=== PATIENT | male | born 1960 | race Caucasian/White ===

== ENCOUNTER → 2019-03-11 10:40 | Outpatient (BNVA) | payer MEDICARE, SELFPAY | PROVIDERS: Family Provider Internal Medicine; PCP Internal Medicine; Referring Provider Internal Medicine; Visit Provider Podiatrist Foot & Ankle Surgery | DX: M79.671 Pain in right foot (principal); M79.672 Pain in left foot; M76.822 Posterior tibial tendinitis, left leg | CPT/HCPCS: 73630 ==

== ENCOUNTER 2019-03-11 13:28 | Outpatient (CLI) | payer MEDICARE, SELFPAY | END 2019-03-11 13:29 | disposition home or self-care (01) | LOC: SPT 13:29 | PROVIDERS: Family Provider Internal Medicine; PCP Internal Medicine; Visit Provider Podiatrist Foot & Ankle Surgery | DX: M76.822 Posterior tibial tendinitis, left leg (principal) | CPT/HCPCS: L1902 ==

== ENCOUNTER → 2019-03-25 13:19 | Outpatient (BNVA) | payer MEDICARE, SELFPAY | PROVIDERS: Family Provider Internal Medicine; PCP Internal Medicine; Visit Provider Internal Medicine Rheumatology | DX: L40.50 Arthropathic psoriasis, unspecified (principal); L40.8 Other psoriasis; Z79.899 Other long term (current) drug therapy; Z79.52 Long term (current) use of systemic steroids; K21.9 Gastro-esophageal reflux disease without esophagitis; F17.210 Nicotine dependence, cigarettes, uncomplicated; I10 Essential (primary) hypertension | CPT/HCPCS: 99214 ==

== ENCOUNTER 2019-07-10 15:33 | Outpatient (CLI) | payer MEDICARE, SELFPAY ==
--- NOTE | 2019-07-10 15:42 | XRR_ITS ---
PROCEDURE INFORMATION: Exam: XR Left Hand Exam date and time: 07/10/2019 3:57 PM Age: 58 years old Clinical indication: Condition or disease; Other: Psoriatic arthritis; Hand; Bilateral TECHNIQUE: Imaging protocol: XR Left hand. Views: 3 or more views. COMPARISON: CR Hand 3 views, LEFT* [id number] 10/22/2013 11:40 AM FINDINGS: Bones/joints: Chondrocalcinosis over the wrist joint proximal to the lunate. Soft tissues: Normal. XR/XR hand LT min 3V* [id number] IMPRESSION: Chondrocalcinosis over the wrist joint proximal to the lunate.
--- NOTE | 2019-07-10 15:42 | XRR_ITS ---
PROCEDURE INFORMATION: Exam: XR Right Knee Exam date and time: 07/10/2019 3:57 PM Age: 58 years old Clinical indication: Condition or disease; Other: Psoriatic arthritis; Bilateral TECHNIQUE: Imaging protocol: XR Right knee. Views: 3 views. COMPARISON: No relevant prior studies available. FINDINGS: Bones/joints: Chondrocalcinosis. Moderate to severe medial knee compartment primary osteoarthritis. Mild patellofemoral compartment primary osteoarthritis. There may be one or more intra-articular loose bodies. Soft tissues: Normal. XR/XR knee RT 3V* [id number] IMPRESSION: 1. Moderate to severe medial knee compartment primary osteoarthritis. 2. Mild patellofemoral compartment primary osteoarthritis. 3. There may be one or more intra-articular loose bodies.
--- NOTE | 2019-07-10 15:42 | XRR_ITS ---
PROCEDURE INFORMATION: Exam: XR Left Knee Exam date and time: 07/10/2019 3:57 PM Age: 58 years old Clinical indication: Condition or disease; Other: Psoriatic arthritis; Bilateral TECHNIQUE: Imaging protocol: XR Left knee. Views: 3 views. COMPARISON: No relevant prior studies available. FINDINGS: Bones/joints: Chondrocalcinosis. Mild primary tricompartmental osteoarthritis. There may be one or more intra-articular loose bodies. Soft tissues: Normal. XR/XR knee LT 3V* [id number] IMPRESSION: 1. Chondrocalcinosis. 2. Mild primary tricompartmental osteoarthritis. 3. There may be one or more intra-articular loose bodies.
--- NOTE | 2019-07-10 15:42 | XRR_ITS ---
PROCEDURE INFORMATION: Exam: XR Left Ankle Exam date and time: 07/10/2019 3:57 PM Age: 58 years old Clinical indication: Condition or disease; Other: Psoriatic arthritis; Bilateral TECHNIQUE: Imaging protocol: XR Left ankle. Views: 3 or more views. COMPARISON: CR Ankle 3 views, LEFT* [id number] 01/03/2019 5:17 PM FINDINGS: Bones/joints: Chronic healed avulsion fracture and/or ununited accessory ossification center and/or chronic posttraumatic arthritis over the inferior tip of the lateral malleolus. Soft tissues: Normal. XR/XR ankle LT min 3V* [id number] IMPRESSION: Chronic healed avulsion fracture and/or ununited accessory ossification center and/or chronic posttraumatic arthritis over the inferior tip of the lateral malleolus.
--- NOTE | 2019-07-10 15:42 | XRR_ITS ---
PROCEDURE INFORMATION: Exam: XR Chest, 2 Views Exam date and time: 07/10/2019 3:57 PM Age: 58 years old Clinical indication: Condition or disease; Other: Psoriatic arthritis TECHNIQUE: Imaging protocol: XR of the chest Views: 2 views. COMPARISON: CR Chest 1 [place] [id number] 01/09/2016 4:53 PM FINDINGS: Lungs: Unremarkable. No consolidation. Pleural space: Unremarkable. No pleural effusion. No pneumothorax. Heart/Mediastinum: Unremarkable. No cardiomegaly. Bones/joints: Moderate thoracic spondylosis. Mild levoscoliosis. XR/XR chest 2V* [id number] IMPRESSION: No acute findings.
--- NOTE | 2019-07-10 15:42 | XRR_ITS ---
PROCEDURE INFORMATION: Exam: XR Left Foot Complete Exam date and time: 07/10/2019 3:57 PM Age: 58 years old Clinical indication: Condition or disease; Other: Psoriatic arthritis; Bilateral TECHNIQUE: Imaging protocol: XR Left foot. Views: 3 or more views. COMPARISON: [place] [id number] ORTH 03/11/2019 10:20 AM FINDINGS: Bones/joints: Mild great toe MTP primary osteoarthritis with tiny osteophyte. Soft tissues: Normal. XR/XR foot LT min 3V* [id number] IMPRESSION: Mild great toe MTP primary osteoarthritis with tiny osteophyte.
--- NOTE | 2019-07-10 15:42 | XRR_ITS ---
PROCEDURE INFORMATION: Exam: XR Right Foot Complete Exam date and time: 07/10/2019 3:57 PM Age: 58 years old Clinical indication: Condition or disease; Other: Psoriatic arthritis; Bilateral TECHNIQUE: Imaging protocol: XR Right foot. Views: 3 or more views. COMPARISON: [place] [id number] ORTH 03/11/2019 10:20 AM FINDINGS: Bones/joints: Normal. Soft tissues: Normal. XR/XR foot RT min 3V* [id number] IMPRESSION: No acute findings.
--- NOTE | 2019-07-10 15:42 | XRR_ITS ---
PROCEDURE INFORMATION: Exam: XR Right Hand Exam date and time: 07/10/2019 3:57 PM Age: 58 years old Clinical indication: Condition or disease; Other: Psoriatic arthritis; Hand; Bilateral TECHNIQUE: Imaging protocol: XR Right hand. Views: 3 or more views. COMPARISON: CR Hand 3 views, RIGHT* [id number] 10/22/2013 11:40 AM FINDINGS: Bones/joints: Normal. Soft tissues: Normal. XR/XR hand RT min 3V* [id number] IMPRESSION: No acute findings.
== END 2019-07-10 15:34 | disposition home or self-care (01) ==
LOC: RADWPI 15:38
PROVIDERS: Family Provider Internal Medicine; PCP Internal Medicine; Visit Provider Internal Medicine Rheumatology
DX: L40.50 Arthropathic psoriasis, unspecified (principal); M11.262 Other chondrocalcinosis, left knee; M17.0 Bilateral primary osteoarthritis of knee; M11.242 Other chondrocalcinosis, left hand; M19.072 Primary osteoarthritis, left ankle and foot; M25.775 Osteophyte, left foot
CPT/HCPCS: 71046; 73130; 73562; 73610; 73630

== ENCOUNTER → 2019-08-20 13:52 | Outpatient (BNVA) | payer MEDICARE, SELFPAY | PROVIDERS: Family Provider Internal Medicine; PCP Internal Medicine; Visit Provider Internal Medicine Rheumatology | DX: L40.50 Arthropathic psoriasis, unspecified (principal); M05.9 Rheumatoid arthritis with rheumatoid factor, unspecified; L40.8 Other psoriasis; Z79.899 Other long term (current) drug therapy; F17.210 Nicotine dependence, cigarettes, uncomplicated; Z79.52 Long term (current) use of systemic steroids; M47.892 Other spondylosis, cervical region; M47.26 Other spondylosis with radiculopathy, lumbar region | CPT/HCPCS: 99214 ==

== ENCOUNTER → 2019-12-25 14:43 | Outpatient (BNVA) | payer MEDICARE, SELFPAY | PROVIDERS: Family Provider Internal Medicine; PCP Internal Medicine; Visit Provider Internal Medicine Rheumatology | DX: L40.50 Arthropathic psoriasis, unspecified (principal); Z79.52 Long term (current) use of systemic steroids; L40.9 Psoriasis, unspecified; K21.9 Gastro-esophageal reflux disease without esophagitis; M05.9 Rheumatoid arthritis with rheumatoid factor, unspecified; M47.26 Other spondylosis with radiculopathy, lumbar region; M47.812 Spondylosis without myelopathy or radiculopathy, cervical region; M77.01 Medial epicondylitis, right elbow; M77.02 Medial epicondylitis, left elbow; M77.11 Lateral epicondylitis, right elbow; M77.12 Lateral epicondylitis, left elbow; F17.210 Nicotine dependence, cigarettes, uncomplicated; Z79.899 Other long term (current) drug therapy | CPT/HCPCS: 36415; 80076; 82565; 84439; 84443; 85025; 85651; 86140; 99214 ==

== ENCOUNTER → 2020-05-11 09:55 | Outpatient (BNVA) | payer OTHER, SELFPAY | PROVIDERS: Family Provider Internal Medicine; PCP Internal Medicine; Visit Provider Internal Medicine Rheumatology | DX: L40.50 Arthropathic psoriasis, unspecified (principal); Z79.899 Other long term (current) drug therapy; Z79.52 Long term (current) use of systemic steroids; M11.29 Other chondrocalcinosis, multiple sites; M47.26 Other spondylosis with radiculopathy, lumbar region; K22.70 Barrett's esophagus without dysplasia; R06.2 Wheezing; F17.210 Nicotine dependence, cigarettes, uncomplicated | CPT/HCPCS: 99214 ==

== ENCOUNTER → 2020-09-29 13:27 | Outpatient (BNVA) | payer OTHER, SELFPAY | PROVIDERS: Family Provider Internal Medicine; PCP Internal Medicine; Visit Provider Internal Medicine Rheumatology | DX: L40.50 Arthropathic psoriasis, unspecified (principal); Z79.899 Other long term (current) drug therapy; Z79.52 Long term (current) use of systemic steroids; K21.9 Gastro-esophageal reflux disease without esophagitis; K22.70 Barrett's esophagus without dysplasia; M47.892 Other spondylosis, cervical region; M47.26 Other spondylosis with radiculopathy, lumbar region; Z71.89 Other specified counseling; F17.210 Nicotine dependence, cigarettes, uncomplicated | CPT/HCPCS: 99214 ==

== ENCOUNTER → 2020-10-14 15:15 | Outpatient (BNVA) | payer OTHER, SELFPAY | PROVIDERS: Family Provider Internal Medicine; PCP Internal Medicine; Referring Provider Internal Medicine; Visit Provider Podiatrist Foot & Ankle Surgery | DX: M25.572 Pain in left ankle and joints of left foot (principal) | CPT/HCPCS: 73610 ==

== ENCOUNTER 2020-11-14 14:38 | Emergency (ER) | payer MEDICARE, SELFPAY ==
[2020-11-14 14:55] VITALS: BP 141/91; PULSE 83; RESP 18; TEMP 37.3; O2SAT 90; BMI 35.5
[2020-11-14 15:09] VITALS: BP 141/91; PULSE 107; RESP 21; O2SAT 92
[2020-11-14 15:33] VITALS: O2SAT 93
--- NOTE | 2020-11-14 16:01 | XRR_ITS ---
PROCEDURE INFORMATION: Exam: XR Chest Exam date and time: 11/14/2020 4:01 PM Age: 60 years old Clinical indication: Shortness of breath; Additional info: Covid? TECHNIQUE: Imaging protocol: XR of the chest. Views: 1 view. Total images: 1 COMPARISON: CR XR chest 2V* [id number] 07/10/2019 4:08 PM FINDINGS: Lungs: No visible active interstitial or alveolar airspace disease. Pleural spaces: Unremarkable. No pleural effusion. No pneumothorax. Heart/Mediastinum: Cardiac structures and configuration within normal limits for age. Bones/joints: Mild scoliotic curvature of the spine. Soft tissues: Heavy body habitus. XR/XR chest 1V portable [id number] IMPRESSION: Nonacute.
[2020-11-14] MEDS: acetaminophen 500 mg Tablet PO (16:08)
[2020-11-14] MEDS: dexamethasone 10 mg/mL INJ 6 MG IVP (16:09)
[2020-11-14] MEDS: sodium chloride 0.9% 500 ML IV (16:10)
[2020-11-14 16:13] VITALS: BP 122/83; PULSE 79; RESP 20; O2SAT 90
[2020-11-14 16:19] LABS: Basophils # 0.1 10^3/uL (0.0-0.1); Basophils % 0.7 %; Eosinophils # 0.3 10^3/uL (0.0-0.8); Eosinophils % 3.6 %; Hematocrit 37.5 % (42.0-52.0); Hemoglobin 11.8 g/dL (11.7-16.6); Lymphocytes # 1.2 10^3/uL (0.8-4.8); Mean Corpuscular HGB Conc 31.5 g/dL (30.0-36.0); Mean Corpuscular Hemoglobin 29.7 pg (28.0-34.0); Mean Corpuscular Volume 94.5 fl (80-94); Mean Platelet Volume 9.9 fL (7.4-10.4); Monocytes # 0.7 10^3/uL (0.2-0.9); Neutrophils # 4.93 10^3/uL (1.8-7.7); Neutrophils % 68.6 %; Nucleated Red Blood Cells % 0 %; Platelet Count 345 10^3/cmm (130-400); Red Blood Count 3.97 10^6/uL (4.1-5.3); Red Cell Distribution Width 14.6 % (12.1-15.1); White Blood Count 7.2 10^3/uL (4.0-10.0)
[2020-11-14 16:30] LABS: Anion Gap 17.8 (5-19); Blood Urea Nitrogen 10 mg/dL (8-23); Calcium 9.3 mg/dL (8.5-10.5); Carbon Dioxide 24 mmol/L (22-29); Chloride 101 mmol/L (98-107); Glomerular Filtration Rate 114.3 mL/min (90-130); Glucose 99 mg/dL (65-115); Osmolality Calculated 287 mOsm/kg (285-295); Potassium 3.8 mmol/L (3.5-5.1); Sodium 139 mmol/L (136-145)
[2020-11-14 16:49] LABS: SARS Covid-2 Antigen Negative (Negative)
--- NOTE | 2020-11-14 17:08 | W.ED.GENADLT ---
HPI - General Adult General: Chief complaint: COVID symptoms Stated complaint: O2 at 82, sent by Clinic Time Seen by Provider: 11/14/20 15:02 History of Present Illness: HPI narrative: CC: Shortness of breath, fever and generalized weakness HPI: This is a [60]yo patient w/ hx of back pain presenting to the ED with malaise, generalized weakness, cough sputum production, anddyspnea r at home x [2]days. Since onset of symptoms, has had some shortness of breath and decreased PO intake. Patient's has been home sick with covid x 2 weeks. Denies nausea/vomiting/diarrhea. Denies chest pain, diaphoresis, other GI or complaints. Denies any pleuritic chest pain, recent surgery/immobilization/travel, or hematemesis or hx of VTE in the past. Onset: 2 days ago Duration: ongoing for the last 2 days Location: home Severity: moderate Review of Systems Narrative: Constitutional: +subjective fever, +generalized weakness HEENT: No vision changes CV: No chest pain, no palpitations PULM: +cough, +dyspnea. GI: No abdominal pain, no N/V/D. : No dysuria MSKEL: No muscle pain SKIN: No new rashes, no lesions. NEURO: No headache, no focal weakness. HEME: No visible bruises PSYCH: Normal mood PFSH ED PFSH: Medical History (Updated 11/14/20 @ 17:12 by Balaji Hayden MD) Cervical spondylosis Current chronic use of systemic steroids Dyspnea Fibromyalgia GERD (gastroesophageal reflux disease) High risk medication use Immunization counseling Immunosuppression Lumbosacral spondylosis with radiculopathy Posterior tibial tendon dysfunction, bilateral Psoriasis Psoriatic arthritis Surgical History History of appendectomy History of ear, nose, and throat (ENT) surgery History of repair of anterior cruciate ligament of right knee Hx of hemorrhoidectomy Family History Denies family history of Diabetes Cancer Stroke Social History Smoking and tobacco status: never smoked Alcohol intake: never Lives independently: No Household members: spouse Marital status: Current occupational status: disabled History of recent travel: No Physical Exam Narrative: EXAM NARRATIVE: Head: Atraumatic Eyes: PERRL, conjunctiva without injection ENT: Mucous membrane moist NECK: Supple without lymphadenopathy LUNGS: Coarse lung sounds, tachypnea, no crackles/wheezes/rhonchi on exam CV: RRR ABDOMEN: Soft, nontender EXTREMITY: Normal ROM SKIN: No rash or erythema NEURO: Awake and alert. No focal motor deficits. PSYCH: Normal mood and affect. Course Vital Signs: Vital signs: Vital Signs Temperature 99.1 F 11/14/20 14:55 Pulse Rate 86 11/14/20 19:53 Respiratory Rate 18 11/14/20 19:53 Blood Pressure 122/83 11/14/20 16:13 Pulse Oximetry 94 11/14/20 19:53 MDM - General Adult MDM Narrative: Medical decision making narrative: [60]yo patient presenting to the ED with shortness of breath, cough, and malaise in the setting of family member with covid concerning for COVID pneumonia. Workup today includes XR chest Defer lab work at this time given that the patient is well appearing with stable vital signs and without recent hospitalization or care facility stay. Given History, Exam, and Workup presentation most consistent with pneumonia.Presentation not consistent with PE, COPD exacerbation, Pneumothorax, TB, Atypical ACS, Esophageal Rupture, Toxic Exposure, Foreign Body Airway Obstruction. Workup: CXR Chest, COVID antigen/ COVID PCR send out Intervention: Tylenol 1gram, PO challenge, serial reassessment, oxygen Covid antigen negative. XR negative for groundglass opacity. PCR pending. Will evaluate for CTA given degress of hypoxemia, negative antigen and XR for PE. CTA negative for PE. No suspicion for pulmonary edema, PTX, PNA at this time. Discussed option of admission vs going home. Patient will go home with home O2 portable pulse ox for serial reevaluation. Risks of leaving today including respiratory decompensation and even possible discussed with patient. Patient verbalizes understanding and still elects to go home with a trial of home O2. Disposition: Discharge. Patient counseled regarding diagnostic impression, treatment plan. Patient given ED strict return precautions to return for continuation, worsening, or development of new symptoms. Instructed to f/u w/ PCP regarding symptoms today. Patient verbalized understanding. Lab Data: Labs: Lab Results 10/03/21 10/03/21 10/03/21 15:30 15:30 16:13 WBC 7.2 10^3/uL 10^3/ uL (4.0-10.0) RBC 3.97 10^6/uL L 10 ^6/uL (4.1-5.3) Hgb 11.8 g/dL g/dL (11.7-16.6) Hct 37.5 % L % (42.0-52.0) MCV 94.5 fl H fl (80-94) MCH 29.7 pg pg (28.0-34.0) MCHC 31.5 g/dL g/dL (30.0-36.0) RDW 14.6 % % (12.1-15.1) Plt Count 345 10^3/cmm 10^3 /cmm (130-400) MPV 9.9 fL fL (7.4-10.4) Neut % (Auto) 68.6 % % Lymph % (Auto) 17.0 % % Island % (Auto) 10.0 % % Eos % (Auto) 3.6 % % Baso % (Auto) 0.7 % % Neut # (Auto) 4.93 10^3/uL 10^3 /uL (1.8-7.7) Lymph # (Auto) 1.2 10^3/uL 10^3/ uL (0.8-4.8) Island # (Auto) 0.7 10^3/uL 10^3/ uL (0.2-0.9) Eos # (Auto) 0.3 10^3/uL 10^3/ uL (0.0-0.8) Baso # (Auto) 0.1 10^3/uL 10^3/ uL (0.0-0.1) Nucleated RBC % (a uto) 0 % % Nucleated RBCs # 0.0 /100WBC /100W BC Sodium 139 mmol/L mmol/L (136-145) Potassium 3.8 mmol/L mmol/L (3.5-5.1) Chloride 101 mmol/L mmol/L (98-107) Carbon Dioxide 24 mmol/L mmol/L (22-29) Anion Gap 17.8 (5-19) BUN 10 mg/dL mg/dL (8-23) Creatinine 0.7 mg/dL mg/dL (0.7-1.2) GFR Calculation 114.3 mL/min mL/m in (90-130) Glucose 99 mg/dL mg/dL (65-115) Calculated Osmolal ity 287 mOsm/kg mOsm/ kg (285-295) Calcium 9.3 mg/dL mg/dL (8.5-10.5) Nasal/Oral COVID-1 9 PCR Not detected SARS-CoV-2 Ag (Rap id) 11/14/20 16:13 WBC RBC Hgb Hct MCV MCH MCHC RDW Plt Count MPV Neut % (Auto) Lymph % (Auto) Island % (Auto) Eos % (Auto) Baso % (Auto) Neut # (Auto) Lymph # (Auto) Island # (Auto) Eos # (Auto) Baso # (Auto) Nucleated RBC % (a uto) Nucleated RBCs # Sodium Potassium Chloride Carbon Dioxide Anion Gap BUN Creatinine GFR Calculation Glucose Calculated Osmolal ity Calcium Nasal/Oral COVID-1 9 PCR SARS-CoV-2 Ag (Rap id) Negative (Negative) Imaging Data^: Other Imaging: Radiologist's impression: [employer] [id number] ReportSigned Patient: Jame Ross #: [id number]: 9Acct#:[id number]/Sex: 60 / MADM Date: 11/14/20Loc: ERRoom/Bed:Attending Dr: Ordering Provider/Ordering MD: Balaji Hayden MD Date of Service: 11/14/20 Procedure(s): XR chest 1V portable [id number] Accession Number(s): [id number] Report Number: [id number] PROCEDURE INFORMATION: Exam: XR Chest Exam date and time: 11/14/2020 4:01 PM Age: 60 years old Clinical indication: Shortness of breath; Additional info: Covid? TECHNIQUE: Imaging protocol: XR of the chest. Views: 1 view. Total images: 1 COMPARISON: CR XR chest 2V* [id number] 07/10/2019 4:08 PM FINDINGS: Lungs: No visible active interstitial or alveolar airspace disease. Pleural spaces: Unremarkable. No pleural effusion. No pneumothorax. Heart/Mediastinum: Cardiac structures and configuration within normal limits for age. Bones/joints: Mild scoliotic curvature of the spine. Soft tissues: Heavy body habitus. XR/XR chest 1V portable [id number] IMPRESSION: Nonacute. Dictated By:Maria Elena Baron By:Maria Elena Baron Date/Time:11/14/201734DD/ [facility] [place], [place] [address]WE Scan ReportSigned Patient: Jame Ross #: [id number]: 1960cct#:[id number]/Sex: 60 / MADM Date: 11/14/20Loc: ERRoom/Bed:Attending Dr: Ordering Provider/Ordering MD: Balaji Hayden MD Date of Service: 11/14/20 Procedure(s): CT angio chest PE protcl [id number] Accession Number(s): [id number] Report Number: [id number] PROCEDURE INFORMATION: Exam: CTA Chest With Contrast Exam date and time: 11/14/2020 5:21 PM Age: 60 years old Clinical indication: Shortness of breath; Additional info: Incredible hypoxemia, negative covid, not impressive XR TECHNIQUE: Imaging protocol: Computed tomographic angiography of the chest with contrast. 3D rendering (Not supervised by radiologist): MIP and/or 3D reconstructed images were created by the technologist. Total images: 855 Radiation optimization: All CT scans at this facility use at least one of these dose optimization techniques: automated exposure control; mA and/or kV adjustment per patient size (includes targeted exams where dose is matched to clinical indication); or iterative reconstruction. Contrast material: OMNIPAQUE 350; Contrast volume: 73 ml; Contrast route: INTRAVENOUS (IV); COMPARISON: CR (CHEST, ) 11/14/2020 4:31 PM RADIATION DOSE METRICS: Total DLP (mGy-cm): 565.15 FINDINGS: Pulmonary arteries: No visible evidence of pulmonary embolism/pulmonary arterial thrombus. Rare calcified granuloma of antecedent disease. Aorta: The thoracic aorta is nonaneurysmal. No visible intimal flap or dissection. Mild arterial sclerotic disease. Lungs: No visible active interstitial or alveolar airspace disease. Pleural spaces: No pneumothorax. No pleural effusion. Heart: Cardiac size within normal limits. No visible pericardial effusion. Mild coronary artery disease. Lymph nodes: No evidence of active mediastinal or hilar lymphadenopathy. Liver: Small 11 mm hepatic simple cyst anterior segment right hepatic lobe. Bones/joints: No visible active or acute osseous pathology. Mild scoliosis of the spine. Age-appropriate degenerative disease and degenerative disc disease of the spine. Soft tissues: Unremarkable. Other findings: Rare calcified granuloma of antecedent disease. CT/CT angio chest PE protcl [id number] IMPRESSION: No visible evidence of pulmonary embolism/pulmonary arterial thrombus. Radiation Dose CTDIVOL = (mGy): DLP = 565.15 (mGy-cm) Dictated By:Maria Elena Baron By:Maria Elena Baron Date/Time:11/14/202DD/ 10 Discharge Plan Discharge Patient Disposition: Home Clinical Impression: Cough, Acute dyspnea, Hypoxemia, Suspected severe acute respiratory syndrome coronavirus 2 (SARS-CoV-2) infection Condition: Stable Prescriptions: No Action duloxetine 60 mg capsule, delayed rel sprinkle 60 mg PO QDAY RF: 0 propranolol 60 mg capsule,extended release 24 hr 60 mg PO QDAY RF: 0 amlodipine 10 mg tablet 10 mg PO QDAY RF: 0 atorvastatin 40 mg tablet 40 mg PO QDAY RF: 0 zolpidem 10 mg tablet 10 mg PO .AT BEDTIME RF: 0 alprazolam 0.25 mg tablet 0.25 mg PO TID PRNRF: 0 clonidine HCl 0.1 mg tablet 0.1 mg PO BID PRNRF: 0 hydrocodone-acetaminophen 10-325 mg tablet 1 tab PO BID PRNRF: 0 [employer] 5 billion cell powder in packet PO RF: 0 prednisone 2.5 mg tablet 5 mg PO DAILY Qty: 60 RF: 3 leflunomide 20 mg tablet 20 mg PO DAILY Qty: 30 RF: 3 Xeljanz 5 mg tablet 5 mg PO BID Qty: 60 RF: 3 (DME) BD [employer] Pract[employer]er Tray Reg Bevel 1 mL 27 x 1/2 syringe See Rx Instructions .ROUTE .MEDSUPPLY Qty: 12 RF: 0 Discharge Orders: Discharge ED (Routine); Ordered 11/14/20 Ordered By: Balaji Hayden Other Ambulatory Orders: DME: Oxygen (Order) Location: None Selected Ordered By: Balaji Hayden Referrals: Dameon Perrin DO [Primary Care Provider] - Discharge Diet: Advance as tolerated Discharge Activity: Resume usual activity Patient Instructions: COVID-19 (Coronavirus Disease 2019) (ED) Activity Restrictions/Additional Instructions: Come back to the emergency room if your symptoms worsen, have any shortness of breath, fever/chills, dehydration, inability tolerate p.o., any difficulty breathing, or any new or concerning complaints. Coding Level of Care Code ED Jet Engine Mechanic for Adrienne Webster
[2020-11-14 17:10] VITALS: O2SAT 88; O2SAT 90
--- NOTE | 2020-11-14 17:21 | CTR_ITS ---
PROCEDURE INFORMATION: Exam: CTA Chest With Contrast Exam date and time: 11/14/2020 5:21 PM Age: 60 years old Clinical indication: Shortness of breath; Additional info: Incredible hypoxemia, negative covid, not impressive XR TECHNIQUE: Imaging protocol: Computed tomographic angiography of the chest with contrast. 3D rendering (Not supervised by radiologist): MIP and/or 3D reconstructed images were created by the technologist. Total images: 855 Radiation optimization: All CT scans at this facility use at least one of these dose optimization techniques: automated exposure control; mA and/or kV adjustment per patient size (includes targeted exams where dose is matched to clinical indication); or iterative reconstruction. Contrast material: OMNIPAQUE 350; Contrast volume: 73 ml; Contrast route: INTRAVENOUS (IV); COMPARISON: CR (CHEST, ) 11/14/2020 4:31 PM RADIATION DOSE METRICS: Total DLP (mGy-cm): 565.15 FINDINGS: Pulmonary arteries: No visible evidence of pulmonary embolism/pulmonary arterial thrombus. Rare calcified granuloma of antecedent disease. Aorta: The thoracic aorta is nonaneurysmal. No visible intimal flap or dissection. Mild arterial sclerotic disease. Lungs: No visible active interstitial or alveolar airspace disease. Pleural spaces: No pneumothorax. No pleural effusion. Heart: Cardiac size within normal limits. No visible pericardial effusion. Mild coronary artery disease. Lymph nodes: No evidence of active mediastinal or hilar lymphadenopathy. Liver: Small 11 mm hepatic simple cyst anterior segment right hepatic lobe. Bones/joints: No visible active or acute osseous pathology. Mild scoliosis of the spine. Age-appropriate degenerative disease and degenerative disc disease of the spine. Soft tissues: Unremarkable. Other findings: Rare calcified granuloma of antecedent disease. CT/CT angio chest PE protcl [id number] IMPRESSION: No visible evidence of pulmonary embolism/pulmonary arterial thrombus. Radiation Dose CTDIVOL = (mGy): DLP = 565.15 (mGy-cm)
[2020-11-14] MEDS: iohexol 350 mg/mL 100 mL Btl IV (18:41)
[2020-11-14 19:53] VITALS: PULSE 86; RESP 18; O2SAT 94
[2020-11-15 13:45] LABS: Coronavirus Test Green County Not Detected
--- NOTE | 2020-11-15 16:21 | PC.NURSE ---
Informed pt of his Negative COVID test.
== END 2020-11-14 19:45 | disposition home or self-care (01) ==
PROVIDERS: Emergency Provider Emergency Medicine; PCP Internal Medicine
DX: R05.9 Cough, unspecified (principal); R06.00 Dyspnea, unspecified; R09.02 Hypoxemia; Z20.822 Contact with and (suspected) exposure to COVID-19
CPT/HCPCS: 71045; 71275; 80048; 85025; 87426; 87635; 96361; 96374; 99284; J1100; J7040; Q9967

== ENCOUNTER → 2020-12-21 14:50 | Outpatient (BNVA) | payer MEDICARE, SELFPAY | PROVIDERS: PCP Internal Medicine; Visit Provider Internal Medicine Rheumatology | DX: L40.50 Arthropathic psoriasis, unspecified (principal); L40.9 Psoriasis, unspecified; Z79.899 Other long term (current) drug therapy; K22.70 Barrett's esophagus without dysplasia; Z71.89 Other specified counseling | CPT/HCPCS: 99214 ==

== ENCOUNTER 2021-01-31 10:04 | Observation (INO) | payer MEDICARE, SELFPAY ==
[2021-01-31] VITALS (10 sets, daily range): BP systolic 119–139; BP diastolic 77–90; PULSE 89–112; RESP 17–22; TEMP 37.1–37.7; O2SAT 87–97; BMI 35.5
--- NOTE | 2021-01-31 10:45 | ECG_ITS ---
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1960 Requested By: Mackenzie Silva Order Number: [id number] Reading MD: JUANA ACEVEDO Measurements Intervals [place] Rate: 101 P: 42 [place]: 120 QRS: 27 QRSD: 94 T: 48 QT: 330 QTc: 428 Interpretive Statements SINUS TACHYCARDIA ABNORMAL RHYTHM ECG Compared to ECG 08/19/2018 19:24:21 Sinus rhythm no longer present ST (T wave) deviation no longer present Electronically Signed On 01-31-2021 18:58:12 INSTRUMENT REPAIRER by JUANA ACEVEDO [email or web address] of greenvillePiikuacmc healthcare systemRehab Loan Group/store/[id number] f
--- NOTE | 2021-01-31 10:45 | XR_ITS ---
WS: [id number] Exam: XR chest 1V portable [id number] Date/Time of Exam: 01/31/2021 10:45 AM Reason For Exam: fever, cough Comparison 11/14/2020. Findings: The lungs are clear and fully expanded. Costophrenic angles are sharp. No infiltrates. Bronchovascula r relief appears normal. Cardiac silhouette is unremarkable. Bony elements are intact. XR/XR chest 1V portable [id number] IMPRESSION: Unremarkable chest radiograph.
[2021-01-31 11:18] LABS: ABG PCO2 35.7 mmHg (35-45); ABG PH Result 7.47 (7.35-7.45); Arterial Blood Gas Hematocrit 39.1 % (42-52); Base Excess ABG 2.1 mmol/L (-2.0-2.0); Blood Gas Allen Test Pos; Blood Gas Sample Type Arterial; HCO3 ABG 25.6 mmol/L (22-26); PO2 ABG 64.6 mmHg (80.0-100.0)
--- NOTE | 2021-01-31 11:18 | W.ED.SOB ---
Documented by User: ADRIAN James 02/01/21 07:06 HPI - SOB/Dyspnea General: Chief Complaint: Shortness of Breath/Dyspnea Stated Complaint: N/V COUGH FEVOR SORE THROAT Time Seen by Provider: 01/31/21 10:56 Source: patient and family Mode of arrival: wheelchair Limitations: no limitations History of Present Illness: HPI Narrative: Patient is a 60-year-old male here for complaints of a productive cough, difficulty breathing, fevers, and a sore throat. Patient noted to be mildly hypoxic at 87% on RA in triage. 2L O2 placed. PENDING SALE TO [facility] ED PFSH: Medical History Cervical spondylosis COPD (chronic obstructive pulmonary disease) Current chronic use of systemic steroids Dyspnea Fever Fibromyalgia GERD (gastroesophageal reflux disease) High risk medication use Hypoxia Immunization counseling Immunosuppression Lumbosacral spondylosis with radiculopathy Posterior tibial tendon dysfunction, bilateral Psoriasis Psoriatic arthritis Surgical History History of appendectomy History of ear, nose, and throat (ENT) surgery History of repair of anterior cruciate ligament of right knee Hx of hemorrhoidectomy Family History Denies family history of Diabetes Cancer Stroke Social History Smoking and tobacco status: never smoked Alcohol intake: never Lives independently: No Household members: spouse Marital status: Current occupational status: disabled History of recent travel: No Physical Exam Const: COMMON NORMALS: patient oriented x3, no limitations and alert GENERAL APPEARANCE: cooperative and comfortable Resp: COMMON NORMALS: normal respiratory effort Cardio: COMMON NORMALS: regular rhythm RATE: tachycardic (mild) RHYTHM: regular rhythm Neuro: COMMON NORMALS: patient oriented x3 SENSORIUM/ORIENTATION: Yes alert Course Vital Signs: Vital signs: Vital Signs Temperature 98.2 F 02/01/21 12:56 Pulse Rate 81 02/01/21 12:56 Respiratory Rate 16 02/01/21 12:56 Blood Pressure 134/88 02/01/21 12:56 Pulse Oximetry 94 02/01/21 12:56 MDM - SOB/Dyspnea MDM Narrative: Medical decision making narrative: Brief history and physical exam was performed as part of the triage process. Due to current ED wait time patient will be placed in waiting room until a room becomes available. Explained to patient he/she will be seen in order of severity. Patient is currently safe to wait in the waiting room until we can get them placed. Patient informed that if condition worsens at any time to please let the front line leader know. Lab Data: Labs: Lab Results 01/31/21 01/31/21 01/31/21 11:09 12:25 12:25 WBC 11.3 10^3/uL H 10 ^3/uL (4.0-10.0) RBC 4.29 10^6/uL 10^6 /uL (4.1-5.3) Hgb 12.8 g/dL g/dL (11.7-16.6) Hct 38.8 % L % (42.0-52.0) MCV 90.4 fl fl (80-94) MCH 29.8 pg pg (28.0-34.0) MCHC 33.0 g/dL g/dL (30.0-36.0) RDW 14.7 % % (12.1-15.1) Plt Count 389 10^3/cmm 10^3 /cmm (130-400) MPV 8.9 fL fL (7.4-10.4) Neut % (Auto) 76.2 % % Lymph % (Auto) 9.7 % % [place] % (Auto) 10.9 % % Eos % (Auto) 2.2 % % Baso % (Auto) 0.6 % % Neut # (Auto) 8.62 10^3/uL H 10 ^3/uL (1.8-7.7) Lymph # (Auto) 1.1 10^3/uL 10^3/ uL (0.8-4.8) [place] # (Auto) 1.2 10^3/uL H 10^ 3/uL (0.2-0.9) Eos # (Auto) 0.3 10^3/uL 10^3/ uL (0.0-0.8) Baso # (Auto) 0.1 10^3/uL 10^3/ uL (0.0-0.1) Nucleated RBC % (a uto) 0 % % Nucleated RBCs # 0.0 /100WBC /100W BC PT 14.00 SECONDS SEC ONDS (12.1-14.9) INR 1.05 (0.8-1.2) APTT 30.8 SECONDS SECO NDS (23.9-36.7) D-Dimer 0.71 ug/mIFEU H u g/mIFEU (0-0.59) Specimen Type Arterial Sample Site Radial, right ABG pH 7.47 H (7.35-7.45) ABG pCO2 35.7 mmHg mmHg (35-45) ABG pO2 64.6 mmHg L mmHg (80.0-100.0) ABG HCO3 25.6 mmol/L mmol/ L (22-26) ABG Base Excess 2.1 mmol/L H mmol /L (-2.0-2.0) Tee Test Pos Hematocrit 39.1 % L % (42-52) O2 Delivery Device Nc O2 Liters/Min 3.0 % % FiO2 32.0 % % Formation Fracturing Operator ID Ed Sodium Potassium Chloride Carbon Dioxide Anion Gap BUN Creatinine GFR Calculation Glucose Calculated Osmolal ity Lactic Acid Calcium Total Bilirubin AST ALT Alkaline Phosphata se Troponin T Gen 5 n g/L C-Reactive Protein Total Protein Albumin Globulin Procalcitonin Human Metapneumovi r PCR Influenza Type A A g Influenza Type B A g Entero/Rhino (PCR) 01/31/21 01/31/21 01/31/21 12:25 12:25 12:25 WBC RBC Hgb Hct MCV MCH MCHC RDW Plt Count MPV Neut % (Auto) Lymph % (Auto) [place] % (Auto) Eos % (Auto) Baso % (Auto) Neut # (Auto) Lymph # (Auto) [place] # (Auto) Eos # (Auto) Baso # (Auto) Nucleated RBC % (a uto) Nucleated RBCs # PT INR APTT D-Dimer Specimen Type Sample Site ABG pH ABG pCO2 ABG pO2 ABG HCO3 ABG Base Excess Tee Test Hematocrit O2 Delivery Device O2 Liters/Min FiO2 Formation Fracturing Operator ID Sodium 136 mmol/L mmol/L (136-145) Potassium 3.6 mmol/L mmol/L (3.5-5.1) Chloride 100 mmol/L mmol/L (98-107) Carbon Dioxide 19 mmol/L L mmol/ L (22-29) Anion Gap 20.6 H (5-19) BUN 15 mg/dL mg/dL (8-23) Creatinine 0.9 mg/dL mg/dL (0.7-1.2) GFR Calculation 85.5 mL/min L mL/ min (90-130) Glucose 120 mg/dL H mg/dL (65-115) Calculated Osmolal ity 284 mOsm/kg L mOs m/kg (285-295) Lactic Acid 1.5 mmol/L mmol/L (0.5-2.2) Calcium 8.7 mg/dL mg/dL (8.5-10.5) Total Bilirubin 0.4 mg/dL mg/dL (0.15-1.2) AST 29 U/L U/L (0-40) ALT 29 U/L U/L (0-41) Alkaline Phosphata se 69 IU/L IU/L (40-130) Troponin T Gen 5 n g/L 22 ng/L H ng/L (0-15) C-Reactive Protein 52.4 mg/L H mg/L (0.0-4.9) Total Protein 7.4 g/dL g/dL (6.6-8.7) Albumin 4.3 g/dL g/dL (3.5-5.2) Globulin 3.1 g/dL g/dL (1.3-4.6) Procalcitonin 0.09 ng/mL ng/mL (0-0.5) Human Metapneumovi r PCR Influenza Type A A g Influenza Type B A g Entero/Rhino (PCR) 01/31/21 01/31/21 15:17 17:32 WBC RBC Hgb Hct MCV MCH MCHC RDW Plt Count MPV Neut % (Auto) Lymph % (Auto) [place] % (Auto) Eos % (Auto) Baso % (Auto) Neut # (Auto) Lymph # (Auto) [place] # (Auto) Eos # (Auto) Baso # (Auto) Nucleated RBC % (a uto) Nucleated RBCs # PT INR APTT D-Dimer Specimen Type Sample Site ABG pH ABG pCO2 ABG pO2 ABG HCO3 ABG Base Excess Tee Test Hematocrit O2 Delivery Device O2 Liters/Min FiO2 Formation Fracturing Operator ID Sodium Potassium Chloride Carbon Dioxide Anion Gap BUN Creatinine GFR Calculation Glucose Calculated Osmolal ity Lactic Acid Calcium Total Bilirubin AST ALT Alkaline Phosphata se Troponin T Gen 5 n g/L C-Reactive Protein Total Protein Albumin Globulin Procalcitonin Human Metapneumovi r PCR Not detected (NOT DETECT) Influenza Type A A g Negative (Negative) Influenza Type B A g Negative (Negative) Entero/Rhino (PCR) Detected A (NOT DETECT) Discharge Plan Discharge Admit Provider: Pedro Kenney Clinical Impression: Acute exacerbation of chronic obstructive airways disease, Hypoxemia Condition: Stable Discharge Orders: Discharge Order (Routine); Ordered 02/01/21 Ordered By: Pedro Kenney Discharge Diet: Regular Discharge Activity: Resume usual activity Coding Level of Care Code ED Shoulder Sawyer for Chg Fwd Exam Comprehensive Documented by User: Favio Owens DO 02/03/21 06:17 HPI - SOB/Dyspnea General: Chief Complaint: Shortness of Breath/Dyspnea Stated Complaint: N/V COUGH FEVOR SORE THROAT Time Seen by Provider: 01/31/21 10:56 History of Present Illness: HPI Narrative: 58-year-old male presents emergency room with nausea, vomiting, productive cough fever and sore throat. Said this last couple days got markedly worse overnight. He is also a lot of myalgias he denies any anosmia. Previously been diagnosed COVID nor is he been vaccinated.He did have a little bit of loose stools several days ago. That has resolved. Patient is a former smoker he quit several months ago. He denies any productive cough. No chest pain. Does not normally wear oxygen is now requiring 2 L. His initial O2 sat was 87% is increasing into the mid 90s with oxygen supplement. MD elicited complaint: shortness of breath and cough Pertinent past history: COPD Onset (ago): day(s) Timing: constant Severity: mild Exacerbating factors: exertion and coughing Relieving factors: oxygen and rest Known history of: COPD Associated symptoms: Reports chest congestion, cough, diaphoresis and fever(s); Deny abdominal pain, chest pain, dizziness, extremity pain, hemoptysis or lightheadedness Treatment prior to arrival: none Review of Systems Const: Reports: fever(s) and diaphoresis ENMT: Denies: throat pain, ear or mastoid pain, nasal discharge or nasal congestion Card: Denies: chest pain or lightheadedness Resp: Reports: chest congestion; Denies: hemoptysis GI: Denies: abdominal pain : Denies: flank pain, dysuria, urinary frequency or urinary urgency Musc: Denies: extremity pain Skin/Breast: Denies: rash or pruritus Neuro: Denies: dizziness PFSH ED PFSH: Medical History Cervical spondylosis COPD (chronic obstructive pulmonary disease) Current chronic use of systemic steroids Dyspnea Fever Fibromyalgia GERD (gastroesophageal reflux disease) High risk medication use Hypoxia Immunization counseling Immunosuppression Lumbosacral spondylosis with radiculopathy Posterior tibial tendon dysfunction, bilateral Psoriasis Psoriatic arthritis Surgical History History of appendectomy History of ear, nose, and throat (ENT) surgery History of repair of anterior cruciate ligament of right knee Hx of hemorrhoidectomy Family History Denies family history of Diabetes Cancer Stroke Social History Smoking and tobacco status: never smoked Alcohol intake: never Lives independently: No Household members: spouse Marital status: Current occupational status: disabled History of recent travel: No Physical Exam Const: COMMON NORMALS: no acute distress GENERAL APPEARANCE: cooperative and comfortable ORIENTATION/CONSCIOUSNESS: Yes awake, Yes oriented to person, Yes oriented to place and Yes oriented to time HENMT: COMMON NORMALS: normocephalic, atraumatic and hearing grossly normal bilaterally HEAD & SCALP: normocephalic and atraumatic Neck/C-Spine: COMMON NORMALS: no JVD Resp: COMMON NORMALS: normal respiratory effort, No retractions and No use of accessory muscles AUSCULTATION: crackles and wheezes Cardio: COMMON NORMALS: no JVD, regular rhythm and No murmurs present (Cardio) RATE: tachycardic RHYTHM: regular rhythm GI: COMMON NORMALS: Soft to palpation and No hepatosplenomegaly present AUSCULTATION: Yes normoactive bowel sounds PALPATION: Yes Soft to palpation, No Tenderness to palpation present (GI), No Guarding due to palpation present (GI) and Yes No hepatosplenomegaly present Extremity: COMMON NORMALS: normal to inspection, capillary refill normal, no clubbing, cyanosis or edema, no calf tenderness and no pedal edema Neuro: SENSORIUM/ORIENTATION: Yes oriented to person, Yes oriented to place and Yes oriented to time Skin: COMMON NORMALS: no rashes or lesions noted GENERAL SKIN EXAM: no rashes or lesions noted Course Vital Signs: Vital signs: Vital Signs Temperature 98.2 F 02/01/21 12:56 Pulse Rate 81 02/01/21 12:56 Respiratory Rate 16 02/01/21 12:56 Blood Pressure 134/88 02/01/21 12:56 Pulse Oximetry 94 02/01/21 12:56 MDM - SOB/Dyspnea MDM Narrative: Medical decision making narrative: Patient presents tachycardic and hypoxic initially 87% on room air. Improved with oxygen supplementation. On 2 to 3 L his sats maintained in the low 90s. Covid PCR negative. We will go ahead and admit for acute exacerbation COPD with pneumonia. Aggressive pulmonary toilet and steroids. Lab Data: Labs: Lab Results 01/31/21 01/31/21 01/31/21 11:09 12:25 12:25 WBC 11.3 10^3/uL H 10 ^3/uL (4.0-10.0) RBC 4.29 10^6/uL 10^6 /uL (4.1-5.3) Hgb 12.8 g/dL g/dL (11.7-16.6) Hct 38.8 % L % (42.0-52.0) MCV 90.4 fl fl (80-94) MCH 29.8 pg pg (28.0-34.0) MCHC 33.0 g/dL g/dL (30.0-36.0) RDW 14.7 % % (12.1-15.1) Plt Count 389 10^3/cmm 10^3 /cmm (130-400) MPV 8.9 fL fL (7.4-10.4) Neut % (Auto) 76.2 % % Lymph % (Auto) 9.7 % % [place] % (Auto) 10.9 % % Eos % (Auto) 2.2 % % Baso % (Auto) 0.6 % % Neut # (Auto) 8.62 10^3/uL H 10 ^3/uL (1.8-7.7) Lymph # (Auto) 1.1 10^3/uL 10^3/ uL (0.8-4.8) [place] # (Auto) 1.2 10^3/uL H 10^ 3/uL (0.2-0.9) Eos # (Auto) 0.3 10^3/uL 10^3/ uL (0.0-0.8) Baso # (Auto) 0.1 10^3/uL 10^3/ uL (0.0-0.1) Nucleated RBC % (a uto) 0 % % Nucleated RBCs # 0.0 /100WBC /100W BC PT 14.00 SECONDS SEC ONDS (12.1-14.9) INR 1.05 (0.8-1.2) APTT 30.8 SECONDS SECO NDS (23.9-36.7) D-Dimer 0.71 ug/mIFEU H u g/mIFEU (0-0.59) Specimen Type Arterial Sample Site Radial, right ABG pH 7.47 H (7.35-7.45) ABG pCO2 35.7 mmHg mmHg (35-45) ABG pO2 64.6 mmHg L mmHg (80.0-100.0) ABG HCO3 25.6 mmol/L mmol/ L (22-26) ABG Base Excess 2.1 mmol/L H mmol /L (-2.0-2.0) Tee Test Pos Hematocrit 39.1 % L % (42-52) O2 Delivery Device Nc O2 Liters/Min 3.0 % % FiO2 32.0 % % Formation Fracturing Operator ID Ed Sodium Potassium Chloride Carbon Dioxide Anion Gap BUN Creatinine GFR Calculation Glucose Calculated Osmolal ity Lactic Acid Calcium Total Bilirubin AST ALT Alkaline Phosphata se Troponin T Gen 5 n g/L C-Reactive Protein Total Protein Albumin Globulin Procalcitonin Human Metapneumovi r PCR Influenza Type A A g Influenza Type B A g Entero/Rhino (PCR) 01/31/21 01/31/21 01/31/21 12:25 12:25 12:25 WBC RBC Hgb Hct MCV MCH MCHC RDW Plt Count MPV Neut % (Auto) Lymph % (Auto) [place] % (Auto) Eos % (Auto) Baso % (Auto) Neut # (Auto) Lymph # (Auto) [place] # (Auto) Eos # (Auto) Baso # (Auto) Nucleated RBC % (a uto) Nucleated RBCs # PT INR APTT D-Dimer Specimen Type Sample Site ABG pH ABG pCO2 ABG pO2 ABG HCO3 ABG Base Excess Tee Test Hematocrit O2 Delivery Device O2 Liters/Min FiO2 Formation Fracturing Operator ID Sodium 136 mmol/L mmol/L (136-145) Potassium 3.6 mmol/L mmol/L (3.5-5.1) Chloride 100 mmol/L mmol/L (98-107) Carbon Dioxide 19 mmol/L L mmol/ L (22-29) Anion Gap 20.6 H (5-19) BUN 15 mg/dL mg/dL (8-23) Creatinine 0.9 mg/dL mg/dL (0.7-1.2) GFR Calculation 85.5 mL/min L mL/ min (90-130) Glucose 120 mg/dL H mg/dL (65-115) Calculated Osmolal ity 284 mOsm/kg L mOs m/kg (285-295) Lactic Acid 1.5 mmol/L mmol/L (0.5-2.2) Calcium 8.7 mg/dL mg/dL (8.5-10.5) Total Bilirubin 0.4 mg/dL mg/dL (0.15-1.2) AST 29 U/L U/L (0-40) ALT 29 U/L U/L (0-41) Alkaline Phosphata se 69 IU/L IU/L (40-130) Troponin T Gen 5 n g/L 22 ng/L H ng/L (0-15) C-Reactive Protein 52.4 mg/L H mg/L (0.0-4.9) Total Protein 7.4 g/dL g/dL (6.6-8.7) Albumin 4.3 g/dL g/dL (3.5-5.2) Globulin 3.1 g/dL g/dL (1.3-4.6) Procalcitonin 0.09 ng/mL ng/mL (0-0.5) Human Metapneumovi r PCR Influenza Type A A g Influenza Type B A g Entero/Rhino (PCR) 01/31/21 01/31/21 15:17 17:32 WBC RBC Hgb Hct MCV MCH MCHC RDW Plt Count MPV Neut % (Auto) Lymph % (Auto) [place] % (Auto) Eos % (Auto) Baso % (Auto) Neut # (Auto) Lymph # (Auto) [place] # (Auto) Eos # (Auto) Baso # (Auto) Nucleated RBC % (a uto) Nucleated RBCs # PT INR APTT D-Dimer Specimen Type Sample Site ABG pH ABG pCO2 ABG pO2 ABG HCO3 ABG Base Excess Tee Test Hematocrit O2 Delivery Device O2 Liters/Min FiO2 Formation Fracturing Operator ID Sodium Potassium Chloride Carbon Dioxide Anion Gap BUN Creatinine GFR Calculation Glucose Calculated Osmolal ity Lactic Acid Calcium Total Bilirubin AST ALT Alkaline Phosphata se Troponin T Gen 5 n g/L C-Reactive Protein Total Protein Albumin Globulin Procalcitonin Human Metapneumovi r PCR Not detected (NOT DETECT) Influenza Type A A g Negative (Negative) Influenza Type B A g Negative (Negative) Entero/Rhino (PCR) Detected A (NOT DETECT) Discharge Plan Discharge Admit Provider: Pedro Kenney Clinical Impression: Acute exacerbation of chronic obstructive airways disease, Hypoxemia Condition: Stable Discharge Orders: Discharge Order (Routine); Ordered 02/01/21 Ordered By: Pedro Kenney Discharge Diet: Regular Discharge Activity: Resume usual activity Coding Level of Care Code ED Shoulder Sawyer for Chg Fwd Exam Comprehensive
[2021-01-31 11:19] LABS: Blood Gas Operator Identificat ED; Blood Gas Sample Site Radial, right; Oxygen Device NC
[2021-01-31 12:34] LABS: Basophils # 0.1 10^3/uL (0.0-0.1); Basophils % 0.6 %; Eosinophils # 0.3 10^3/uL (0.0-0.8); Eosinophils % 2.2 %; Hematocrit 38.8 % (42.0-52.0); Hemoglobin 12.8 g/dL (11.7-16.6); Lymphocytes # 1.1 10^3/uL (0.8-4.8); Lymphocytes % 9.7 %; Mean Corpuscular Hemoglobin 29.8 pg (28.0-34.0); Mean Corpuscular Volume 90.4 fl (80-94); Mean Platelet Volume 8.9 fL (7.4-10.4); Monocytes # 1.2 10^3/uL (0.2-0.9); Monocytes % 10.9 %; Neutrophils # 8.62 10^3/uL (1.8-7.7); Neutrophils % 76.2 %; Nucleated Red Blood Cells % 0 %; Platelet Count 389 10^3/cmm (130-400); Red Blood Count 4.29 10^6/uL (4.1-5.3); Red Cell Distribution Width 14.7 % (12.1-15.1); White Blood Count 11.3 10^3/uL (4.0-10.0)
[2021-01-31 12:44] LABS: INR 1.05 (0.8-1.2)
[2021-01-31 12:45] LABS: Partial Thromboplastin Time 30.8 SECONDS (23.9-36.7)
[2021-01-31 12:47] LABS: D Dimer 0.71 ug/mIFEU (0-0.59)
[2021-01-31 12:49] LABS: Lactic Sepsis W/Reflex 1.5 mmol/L (0.5-2.2)
[2021-01-31 12:53] LABS: Alanine Aminotransferase 29 U/L (0-41); Albumin Level 4.3 g/dL (3.5-5.2); Alkaline Phosphatase 69 IU/L (40-130); Anion Gap 20.6 (5-19); Aspartate Amino Transferase 29 U/L (0-40); Blood Urea Nitrogen 15 mg/dL (8-23); C Reactive Protein 52.4 mg/L (0.0-4.9); Calcium 8.7 mg/dL (8.5-10.5); Carbon Dioxide 19 mmol/L (22-29); Chloride 100 mmol/L (98-107); Globulin 3.1 g/dL (1.3-4.6); Glomerular Filtration Rate 85.5 mL/min (90-130); Glucose 120 mg/dL (65-115); Osmolality Calculated 284 mOsm/kg (285-295); Potassium 3.6 mmol/L (3.5-5.1); Sodium 136 mmol/L (136-145); Total Bilirubin 0.4 mg/dL (0.15-1.2); Total Protein 7.4 g/dL (6.6-8.7); Troponin T (5th) Once 22 ng/L (0-15)
[2021-01-31 13:00] LABS: Procalcitonin 0.09 ng/mL (0-0.5)
--- NOTE | 2021-01-31 15:57 | CTR_ITS ---
PROCEDURE INFORMATION: Exam: CTA Chest With Contrast Exam date and time: 01/31/2021 3:57 PM Age: 60 years old Clinical indication: Fever and shortness of breath; Additional info: Elevated did iemr/ dyspnea TECHNIQUE: Imaging protocol: Computed tomographic angiography of the chest with contrast. 3D rendering (Not supervised by radiologist): MIP and/or 3D reconstructed images were created by the technologist. Radiation optimization: All CT scans at this facility use at least one of these dose optimization techniques: automated exposure control; mA and/or kV adjustment per patient size (includes targeted exams where dose is matched to clinical indication); or iterative reconstruction. Contrast material: OMNI 350; Contrast volume: 74 ml; Contrast route: INTRAVENOUS (IV); COMPARISON: CT angio chest PE protcl [id number] 11/14/2020 6:30 PM RADIATION DOSE METRICS: Total DLP (mGy-cm): 1854.56 FINDINGS: Pulmonary arteries: There is no evidence of filling defects within the pulmonary arterial circulation to suggest pulmonary embolism. Aorta: There is no thoracic aortic aneurysm or dissection. Lungs: There is mild peripheral bronchial wall thickening. Lungs are otherwise clear. There are few scattered calcified granulomas in the lungs. Pleural spaces: Unremarkable. No pneumothorax. No pleural effusion. Heart: Unremarkable. No cardiomegaly. No pericardial effusion. Lymph nodes: There is no evidence of lymphadenopathy. Diaphragm: There is a small hiatal hernia. Liver: There is benign-appearing 16 mm size cyst or hemangioma in the dome of liver. Pancreas: The pancreas is normal. Spleen: The spleen is normal. Adrenal glands: The adrenal glands are normal. Kidneys and ureters: There are multiple simple renal cysts. Bones/joints: Unremarkable. No acute fracture. Soft tissues: Unremarkable. CT/CT angio chest PE protcl [id number] IMPRESSION: No evidence of pulmonary embolism. COMMENTS: Consistent with the [employer]'s Incidental Findings Committee white paper (J Am Yumiko Radiol 2018): Any incidental renal lesion less than 1 cm or classified as too small to characterize, or any incidental cystic renal lesion characterized as simple-appearing, is likely benign. No follow-up imaging is recommended for these lesions per consensus recommendations based on imaging criteria.
[2021-01-31 16:41] LABS: Influenza A by IFA Negative (Negative); Influenza B by IFA Negative (Negative)
[2021-01-31] MEDS: iohexol 350 mg/mL 100 mL Btl IV ×3 (17:00→17:09)
[2021-01-31 17:27] LABS: Adenovirus Not Detected (NOT DETECT); Chlamydia Pneumoniae Not Detected (NOT DETECT); Coronavirus 229E,HKU1,NL63,OC4 Not Detected (NOT DETECT); Human Metapneumovirus Not Detected (NOT DETECT); Human Rhinovirus/Enterovirus Detected (NOT DETECT); Influenza A Not Detected (NOT DETECT); Influenza A H1 Not Detected (NOT DETECT); Influenza A H1-2009 Not Detected (NOT DETECT); Influenza A H3 Not Detected (NOT DETECT); Influenza B Not Detected (NOT DETECT); Mycoplasma Pneumoniae Not Detected (NOT DETECT); Parainfluenza Virus Type 1 Not Detected (NOT DETECT); Parainfluenza Virus Type 2 Not Detected (NOT DETECT); Parainfluenza Virus Type 3 Not Detected (NOT DETECT); Parainfluenza Virus Type 4 Not Detected (NOT DETECT); Respiratory Syncytial Virus A Not Detected (NOT DETECT); Respiratory Syncytial Virus B Not Detected (NOT DETECT); SARS-COV-2 Not Detected (NOT DETECT)
[2021-01-31 17:34] LABS: Human Metapneumovirus Not Detected (NOT DETECT); Human Rhinovirus/Enterovirus Detected (NOT DETECT); Results from Genmark
[2021-01-31] MEDS: ipratropium-albuterol 3 mL Neb INHALATION ×2 (18:09→21:21)
--- NOTE | 2021-01-31 19:51 | PC.NURSE ---
Patient arrived from ER/ in bed/awake. 3L NC. Denies pain. No needs voiced at this time.
--- NOTE | 2021-01-31 20:14 | PM.HP ---
Providers/Chief Complaint Admitting Physician: Pedro Kenney MD Primary Care Provider: Dameon Perrin DO Chief Complaint: N/V COUGH FEVOR SORE THROAT History of Present Illness Jame Ross is a 60 year old male with past medical history of hypertension psoriatic arthritis, came in with chief complaint of generalized body pain, fever, shortness of breath, nonproductive cough, nausea, going on for the last 24 hours. He denies any, chest pain, palpitation, abdominal pain, urinary complaints. Upon arrival in the ER he was worked up for above mentioned complaint. Imaging studies: CTA chest: No pulmonary embolism, no infiltrates Pertinent labs: WBC 11.3, H&H:12;38, platelet:389, serum sodium 136 and potassium 3.6 BUN:15, serum creatinine:0.9, lactic acid 1.5. Procalcitonin normal, lactic acid:normal Covid PCR negative, influenza negative, ABG: pH 7.47 PCO2 35 PO2 64, FiO2:32% Review of Systems Const: Denies: change in appetite or diaphoresis Card: Denies: palpitations, edema, swelling of feet/ankles, orthopnea or leg pain with exertion Resp: Denies: wheezing or pain on inspiration GI: Denies: abdominal pain, diarrhea or constipation : Denies: flank pain or difficulty urinating Musc: Denies: back pain, extremity pain or extremity swelling Neuro: Denies: headache(s), difficulty walking or confusion Medications/Allergies Home Medications Medication Instructions Recorded Confirmed Last Taken Type amlodipine 10 mg tablet 10 mg PO QAM 03/11/19 01/31/21 01/31/21 09:00 History atorvastatin 40 mg tablet 40 mg PO BEDTIME 03/11/19 01/31/21 01/30/21 History duloxetine 60 mg capsule,delayed 60 mg PO QAM 03/11/19 01/31/21 01/31/21 History release sprinkle zolpidem 10 mg tablet 10 mg PO BEDTIME tab 03/25/19 01/31/21 Unknown History clonidine HCl 0.1 mg tablet 0.1 mg PO BID PRN 05/27/19 01/31/21 Unknown History hydrocodone 10 mg-acetaminophen 1 tab PO QID PRN 05/27/19 01/31/21 Unknown History 325 mg tablet syringe with needle 1 mL 27 x 1/2 #12 ea 02/10/20 01/31/21 Unknown Rx leflunomide 20 mg tablet 20 mg PO DAILY #90 tab 12/21/20 01/31/21 Unknown Rx prednisone 20 mg tablet See Rx Instructions PO .COMPLEX 12/21/20 01/31/21 Unknown Rx PRN #30 tab tofacitinib 5 mg tablet 5 mg PO BID #60 tab 12/21/20 01/31/21 01/31/21 09:00 Rx alprazolam 0.5 mg PO TID PRN 01/31/21 01/31/21 01/31/21 09:00 History ascorbic acid (vitamin C) [Vitamin 500 mg PO DAILY 01/31/21 01/31/21 Unknown History C] cholecalciferol (vitamin D3) 25 mcg PO DAILY 01/31/21 01/31/21 Unknown History [Vitamin D3] folic acid 1 mg PO DAILY 01/31/21 01/31/21 Unknown History pantoprazole 40 mg PO BEDTIME 01/31/21 01/31/21 01/30/21 History prednisolone acetate See Rx Instructions .ROUTE .COMPLEX 01/31/21 01/31/21 Unknown History prednisone 5 mg PO QAM 01/31/21 01/31/21 01/31/21 History propranolol 60 mg PO DAILY 01/31/21 01/31/21 Unknown History zinc 50 mg PO DAILY 01/31/21 01/31/21 Unknown History Allergies Allergy/AdvReac Type Severity Reaction Status Date / Time aspirin Allergy Unknown Verified 12/21/20 15:05 diphenoxylate Allergy Unknown Verified 12/21/20 15:05 PFSH Acute PFSH: Medical History Cervical spondylosis Current chronic use of systemic steroids Dyspnea Fibromyalgia GERD (gastroesophageal reflux disease) High risk medication use Immunization counseling Immunosuppression Lumbosacral spondylosis with radiculopathy Posterior tibial tendon dysfunction, bilateral Psoriasis Psoriatic arthritis Surgical History History of appendectomy History of ear, nose, and throat (ENT) surgery History of repair of anterior cruciate ligament of right knee Hx of hemorrhoidectomy Family History Denies family history of Diabetes Cancer Stroke Social History Smoking and tobacco status: never smoked Alcohol intake: never Lives independently: No Household members: spouse Marital status: Current occupational status: disabled History of recent travel: No Vitals/I&O/Wt Last Vital Signs Temp 100 F H 01/31/21 10:26 Pulse 112 H 01/31/21 18:56 Resp 17 01/31/21 18:09 BP 139/79 01/31/21 18:56 Pulse Ox 92 01/31/21 18:56 Weight last 48 hrs Weight 99.79 kg Physical Exam Const: COMMON NORMALS: patient oriented x3 HENMT: COMMON NORMALS: normocephalic and atraumatic HEAD & SCALP: normocephalic and atraumatic EXTERNAL EAR: Yes external ears normal Resp: COMMON NORMALS: clear to auscultation bilaterally EFFORT & INSPECTION: Yes symmetric chest movement AUSCULTATION: clear to auscultation bilaterally Cardio: COMMON NORMALS: regular rate, regular rhythm, S1 normal heart sound present, S2 normal heart sound present, No gallops present (Cardio), No murmurs present (Cardio), No rub (Cardio) and Peripheral pulses 2+ throughout RATE: regular rate RHYTHM: regular rhythm HEART SOUNDS: S1 normal heart sound present and S2 normal heart sound present PERIPHERAL PULSES: Peripheral pulses 2+ throughout GI: COMMON NORMALS: Normal to inspection, nondistended, normoactive bowel sounds present, Soft to palpation, non-tender, No hepatosplenomegaly present and no masses AUSCULTATION: Yes normoactive bowel sounds PALPATION: Yes Soft to palpation and Yes No hepatosplenomegaly present RECTAL EXAM: Yes deferred Extremity: COMMON NORMALS: no clubbing, cyanosis or edema and no pedal edema Neuro: COMMON NORMALS: patient oriented x3 Data : 01/31/21 12:25 01/31/21 12:25 A&P Assessment and plan (1) COPD (chronic obstructive pulmonary disease): Status: Acute (2) Fever: Status: Acute (3) Hypoxia: Status: Acute (4) Psoriatic arthritis: Status: Acute (5) Current chronic use of systemic steroids: Status: Acute Additional A&P Information 60 year old male with past medical history of hypertension psoriatic arthritis, came in with chief complaint of generalized body pain, fever, shortness of breath, nonproductive cough, nausea, going on for the last 24 hours. He denies any, chest pain, palpitation, abdominal pain, urinary complaints. #COPD exacerbation: Continue Solu-Medrol 40 IV daily DuoNebs Azithromycin Supplemental oxygen as needed #Fever: Likely part of viral prodrome: Procalcitonin normal, lactic acid:normal, Follow blood cultures #Hypertension: Continue home medications #CODE STATUS: Full code #DVT prophylaxis: On Lovenox Attestations Medical Necessity Statement*: Patient needs to be in hospital for management of COPD exacerbation. Coding Level of Care Code Acute Vascular Surgeon for Adrienne Webster Diagnoses COPD (chronic obstructive pulmonary disease) J44.9 Fever R50.9 Hypoxia R09.02 Psoriatic arthritis L40.50 Current chronic use of systemic steroids Z79.52
[2021-01-31] MEDS: atorvastatin 40 mg Tablet PO (21:21)
[2021-01-31] MEDS: enoxaparin 40 mg/0.4 mL Syringe SUBCUT (21:21)
[2021-01-31] MEDS: pantoprazole DR 40 mg Tablet PO (21:21)
[2021-01-31] MEDS: zolpidem 5 mg Tablet 10 MG PO (21:21)
[2021-01-31] MEDS: azithromycin 500 MG in sodium chloride 0.9% 250 ML 250 MG IV (22:00)
[2021-02-01] VITALS (9 sets, daily range): BP systolic 106–134; BP diastolic 69–88; PULSE 81–96; RESP 15–18; TEMP 36.7–37.2; O2SAT 94–98
[2021-02-01] MEDS: ipratropium-albuterol 3 mL Neb INHALATION ×2 (02:06→08:16)
[2021-02-01 02:50] LABS: Basophils # 0.1 10^3/uL (0.0-0.1); Basophils % 0.6 %; Eosinophils # 0.4 10^3/uL (0.0-0.8); Lymphocytes # 1.8 10^3/uL (0.8-4.8); Lymphocytes % 18.4 %; Mean Corpuscular HGB Conc 32.4 g/dL (30.0-36.0); Mean Corpuscular Hemoglobin 29.2 pg (28.0-34.0); Mean Platelet Volume 9.2 fL (7.4-10.4); Monocytes # 1.5 10^3/uL (0.2-0.9); Neutrophils # 6.06 10^3/uL (1.8-7.7); Neutrophils % 61.6 %; Nucleated Red Blood Cells % 0 %; Platelet Count 367 10^3/cmm (130-400); Red Blood Count 4.11 10^6/uL (4.1-5.3); Red Cell Distribution Width 14.6 % (12.1-15.1); White Blood Count 9.8 10^3/uL (4.0-10.0)
[2021-02-01 03:14] LABS: Alanine Aminotransferase 27 U/L (0-41); Alkaline Phosphatase 61 IU/L (40-130); Anion Gap 19.6 (5-19); Aspartate Amino Transferase 39 U/L (0-40); Blood Urea Nitrogen 15 mg/dL (8-23); Calcium 8.6 mg/dL (8.5-10.5); Carbon Dioxide 20 mmol/L (22-29); Chloride 104 mmol/L (98-107); Globulin 3.2 g/dL (1.3-4.6); Glomerular Filtration Rate 85.5 mL/min (90-130); Glucose 94 mg/dL (65-115); Magnesium 1.9 mg/dL (1.7-2.3); Osmolality Calculated 291 mOsm/kg (285-295); Potassium 3.6 mmol/L (3.5-5.1); Sodium 140 mmol/L (136-145); Total Bilirubin 0.3 mg/dL (0.15-1.2); Total Protein 7.2 g/dL (6.6-8.7)
[2021-02-01 03:26] LABS: Procalcitonin 0.09 ng/mL (0-0.5)
[2021-02-01] MEDS: duloxetine 60 mg Capsule PO (05:52)
[2021-02-01] MEDS: amlodipine 10 mg Tablet PO (05:52)
[2021-02-01] MEDS: cholecalciferol (vitamin D3) 1,000 unit Tablet 1000 UNIT PO (09:42)
[2021-02-01] MEDS: propranolol 20 mg Tablet 60 MG PO (09:42)
--- NOTE | 2021-02-01 10:33 | PM.DCS ---
Discharge Providers Date of Admission: 01/31/21 17:50 Date of Discharge: February 01, 2021 Attending Provider at Admission: Pedro Kenney MD Attending Provider at Discharge: Pedro Kenney MD Primary Care Provider: Dameon Perrin DO Diagnoses at Discharge Discharge Diagnosis (1) COPD (chronic obstructive pulmonary disease): Status: Acute (2) Fever: Status: Acute (3) Hypoxia: Status: Acute (4) Psoriatic arthritis: Status: Acute (5) Current chronic use of systemic steroids: Status: Acute Reason for Visit Reason for Visit: N/V COUGH FEVOR SORE THROAT Hospital Course Hospital Course 60 year old male with past medical history of hypertension psoriatic arthritis, came in with chief complaint of generalized body pain, fever, shortness of breath, nonproductive cough, nausea, going on for the last 24 hours. He denies any, chest pain, palpitation, abdominal pain, urinary complaints. Upon arrival in the ER he was worked up for above mentioned complaint. Imaging studies: CTA chest: No pulmonary embolism, no infiltrates Pertinent labs: WBC 11.3, H&H:12;38, platelet:389, serum sodium 136 and potassium 3.6 BUN:15, serum creatinine:0.9, lactic acid 1.5. Procalcitonin normal, lactic acid:normal . Covid PCR negative, influenza negative, ABG: pH 7.47 PCO2 35 PO2 64, FiO2:32%. Patient was admitted for the management of COPD exacerbation, as well as fever likely part of possible viral infection. Patient was kept on duo nebs, azithromycin, steroids, oxygen as needed, patient remained afebrile during the hospital stay, at the time of discharge he was saturating well on room air, denied any shortness of breath, blood cultures were drawn, results have been pending at the time of discharge, patient was feeling symptomatically much better, denied any Active complaint. He was discharged on p.o. azithromycin as well as on albuterol inhaler as needed, patient will continue to follow with his primary care physician as an outpatient. Physical Exam Const: COMMON NORMALS: patient oriented x3 HENMT: COMMON NORMALS: normocephalic, atraumatic and external ears normal HEAD & SCALP: normocephalic and atraumatic EXTERNAL EAR: Yes external ears normal Resp: COMMON NORMALS: clear to auscultation bilaterally EFFORT & INSPECTION: Yes symmetric chest movement AUSCULTATION: clear to auscultation bilaterally Cardio: COMMON NORMALS: regular rate, regular rhythm, S1 normal heart sound present, S2 normal heart sound present, No gallops present (Cardio), No murmurs present (Cardio), No rub (Cardio) and Peripheral pulses 2+ throughout RATE: regular rate RHYTHM: regular rhythm HEART SOUNDS: S1 normal heart sound present and S2 normal heart sound present PERIPHERAL PULSES: Peripheral pulses 2+ throughout GI: COMMON NORMALS: Normal to inspection, nondistended, normoactive bowel sounds present, Soft to palpation, non-tender, No hepatosplenomegaly present and no masses AUSCULTATION: Yes normoactive bowel sounds PALPATION: Yes Soft to palpation and Yes No hepatosplenomegaly present RECTAL EXAM: Yes deferred Extremity: COMMON NORMALS: no clubbing, cyanosis or edema and no pedal edema Neuro: COMMON NORMALS: patient oriented x3 Discharge Data Data Completed and Pending: Completed Studies During Hospitalization Category Date Time Status CT angio chest PE protcl [id number] Stat Cat Scan 01/31/21 15:57 Completed XR chest 1V jareth ble [id number] Stat Exams 01/31/21 10:45 Completed Pending at discharge Category Date Time Status Bacterial Antigen Routine Lab 02/01/21 06:30 Ordered Blood Culture Sta t Lab 01/31/21 21:41 Results Complete Blood Co unt w/Auto AM LABS Lab 02/02/21 04:00 Ordered Complete Blood Co unt w/Auto AM LABS Lab 02/03/21 04:00 Ordered Comprehensive Met abolic Panel AM LA BS Lab 02/02/21 04:00 Ordered Comprehensive Met abolic Panel AM LA BS Lab 02/03/21 04:00 Ordered Legionella Antige n STAT Routine Lab 02/01/21 06:30 Ordered Labs from last 24 hours 02/01/21 02/01/21 02/01/21 02:26 02:26 02:26 WBC 9.8 RBC 4.11 Hgb 12.0 Hct 37.0 L MCV 90.0 MCH 29.2 MCHC 32.4 RDW 14.6 Plt Count 367 MPV 9.2 Neut % (Auto) 61.6 Lymph % (Auto) 18.4 Union % (Auto) 15.0 Eos % (Auto) 4.0 Baso % (Auto) 0.6 Neut # (Auto) 6.06 Lymph # (Auto) 1.8 Union # (Auto) 1.5 H Eos # (Auto) 0.4 Baso # (Auto) 0.1 Nucleated RBC % (a uto) 0 Nucleated RBCs # 0.0 PT INR APTT D-Dimer Specimen Type Sample Site ABG pH ABG pCO2 ABG pO2 ABG HCO3 ABG Base Excess Tee Test Hematocrit O2 Delivery Device O2 Liters/Min FiO2 Toll Bridge Attendant ID Sodium 140 Potassium 3.6 Chloride 104 Carbon Dioxide 20 L Anion Gap 19.6 H BUN 15 Creatinine 0.9 GFR Calculation 85.5 L Glucose 94 Calculated Osmolal ity 291 Lactic Acid Calcium 8.6 Magnesium 1.9 Total Bilirubin 0.3 AST 39 ALT 27 Alkaline Phosphata se 61 Troponin T Gen 5 n g/L C-Reactive Protein Total Protein 7.2 Albumin 4.0 Globulin 3.2 Procalcitonin 0.09 Coronavirus 229E ( PCR) Human Metapneumovi r PCR Influenza Type A A g Influenza Type B A g Entero/Rhino (PCR) SARS-CoV-2 (PCR) 01/31/21 01/31/21 01/31/21 Unknown 17:32 15:17 WBC RBC Hgb Hct MCV MCH MCHC RDW Plt Count MPV Neut % (Auto) Lymph % (Auto) Union % (Auto) Eos % (Auto) Baso % (Auto) Neut # (Auto) Lymph # (Auto) Union # (Auto) Eos # (Auto) Baso # (Auto) Nucleated RBC % (a uto) Nucleated RBCs # PT INR APTT D-Dimer Specimen Type Sample Site ABG pH ABG pCO2 ABG pO2 ABG HCO3 ABG Base Excess Tee Test Hematocrit O2 Delivery Device O2 Liters/Min FiO2 Toll Bridge Attendant ID Sodium Potassium Chloride Carbon Dioxide Anion Gap BUN Creatinine GFR Calculation Glucose Calculated Osmolal ity Lactic Acid Calcium Magnesium Total Bilirubin AST ALT Alkaline Phosphata se Troponin T Gen 5 n g/L C-Reactive Protein Total Protein Albumin Globulin Procalcitonin Coronavirus 229E ( PCR) Not detected Human Metapneumovi r PCR Not detected Influenza Type A A g Negative Influenza Type B A g Negative Entero/Rhino (PCR) Detected A SARS-CoV-2 (PCR) Not detected 01/31/21 01/31/21 01/31/21 12:25 12:25 12:25 WBC RBC Hgb Hct MCV MCH MCHC RDW Plt Count MPV Neut % (Auto) Lymph % (Auto) Union % (Auto) Eos % (Auto) Baso % (Auto) Neut # (Auto) Lymph # (Auto) Union # (Auto) Eos # (Auto) Baso # (Auto) Nucleated RBC % (a uto) Nucleated RBCs # PT INR APTT D-Dimer Specimen Type Sample Site ABG pH ABG pCO2 ABG pO2 ABG HCO3 ABG Base Excess Tee Test Hematocrit O2 Delivery Device O2 Liters/Min FiO2 Toll Bridge Attendant ID Sodium 136 Potassium 3.6 Chloride 100 Carbon Dioxide 19 L Anion Gap 20.6 H BUN 15 Creatinine 0.9 GFR Calculation 85.5 L Glucose 120 H Calculated Osmolal ity 284 L Lactic Acid 1.5 Calcium 8.7 Magnesium Total Bilirubin 0.4 AST 29 ALT 29 Alkaline Phosphata se 69 Troponin T Gen 5 n g/L 22 H C-Reactive Protein 52.4 H Total Protein 7.4 Albumin 4.3 Globulin 3.1 Procalcitonin 0.09 Coronavirus 229E ( PCR) Human Metapneumovi r PCR Influenza Type A A g Influenza Type B A g Entero/Rhino (PCR) SARS-CoV-2 (PCR) 01/31/21 01/31/21 01/31/21 12:25 12:25 11:09 WBC 11.3 H RBC 4.29 Hgb 12.8 Hct 38.8 L MCV 90.4 MCH 29.8 MCHC 33.0 RDW 14.7 Plt Count 389 MPV 8.9 Neut % (Auto) 76.2 Lymph % (Auto) 9.7 Union % (Auto) 10.9 Eos % (Auto) 2.2 Baso % (Auto) 0.6 Neut # (Auto) 8.62 H Lymph # (Auto) 1.1 Union # (Auto) 1.2 H Eos # (Auto) 0.3 Baso # (Auto) 0.1 Nucleated RBC % (a uto) 0 Nucleated RBCs # 0.0 PT 14.00 INR 1.05 APTT 30.8 D-Dimer 0.71 H Specimen Type Arterial Sample Site Radial, right ABG pH 7.47 H ABG pCO2 35.7 ABG pO2 64.6 L ABG HCO3 25.6 ABG Base Excess 2.1 H Tee Test Pos Hematocrit 39.1 L O2 Delivery Device Nc O2 Liters/Min 3.0 FiO2 32.0 Toll Bridge Attendant ID Ed Sodium Potassium Chloride Carbon Dioxide Anion Gap BUN Creatinine GFR Calculation Glucose Calculated Osmolal ity Lactic Acid Calcium Magnesium Total Bilirubin AST ALT Alkaline Phosphata se Troponin T Gen 5 n g/L C-Reactive Protein Total Protein Albumin Globulin Procalcitonin Coronavirus 229E ( PCR) Human Metapneumovi r PCR Influenza Type A A g Influenza Type B A g Entero/Rhino (PCR) SARS-CoV-2 (PCR) Vitals: Last Vital Signs Temp 98.1 F 02/01/21 08:00 Pulse 92 02/01/21 08:23 Resp 16 02/01/21 08:23 BP 119/85 02/01/21 08:00 Pulse Ox 96 02/01/21 09:59 Discharge Plan Discharge Patient Disposition: Home Condition: Stable Prescriptions: New azithromycin 500 mg tablet 500 mg PO DAILY 5 Days Qty: 5 RF: 0 ProAir HFA 90 mcg/actuation HFA aerosol inhaler 1 inh inhalation Q6H PRN (Reason: shortness of breath or wheezing) Qty: 6.7 RF: 1 Continued duloxetine 60 mg capsule, delayed rel sprinkle 60 mg PO QAM RF: 0 amlodipine 10 mg tablet 10 mg PO QAM RF: 0 atorvastatin 40 mg tablet 40 mg PO BEDTIME RF: 0 zolpidem 10 mg tablet 10 mg PO BEDTIME RF: 0 clonidine HCl 0.1 mg tablet 0.1 mg PO BID PRN (Reason: rx written 05/27/2019 pt states just takes prn) RF: 0 hydrocodone-acetaminophen 10-325 mg tablet 1 tab PO QID PRN (Reason: Pain) RF: 0 leflunomide 20 mg tablet 20 mg PO DAILY Qty: 90 RF: 1 prednisone 20 mg tablet See Rx Instructions PO .COMPLEX PRN (Reason: joint pain flare) Qty: 30 RF: 2 Xeljanz 5 mg tablet 5 mg PO BID Qty: 60 RF: 3 propranolol 60 mg tablet 60 mg PO DAILY RF: 0 alprazolam 0.5 mg tablet 0.5 mg PO TID PRN (Reason: Anxiety) RF: 0 prednisolone acetate 1 % drops,suspension See Rx Instructions .ROUTE .COMPLEX RF: 0 pantoprazole 40 mg tablet,delayed release (DR/EC) 40 mg PO BEDTIME RF: 0 Vitamin D3 25 mcg (1,000 unit) Tablet 25 mcg PO DAILY RF: 0 prednisone 5 mg tablet 5 mg PO QAM RF: 0 Discontinued ascorbic acid (vitamin C) [Vitamin C] 500 mg Tablet 500 mg PO DAILY RF: 0 folic acid 1 mg tablet 1 mg PO DAILY RF: 0 zinc 50 mg Tablet 50 mg PO DAILY RF: 0 No Action (DME) BD Sailing Instructor Tray Reg Bevel 1 mL 27 x 1/2 syringe See Rx Instructions .ROUTE .MEDSUPPLY Qty: 12 RF: 0 Discharge Orders: Discharge Order (Routine); Ordered 02/01/21 Ordered By: Pedro Kenney Referrals: Dameon Perrin DO [Primary Care Provider] - 02/14/21 9:30 am (Follow up appointment scheduled for February 14 at 9:30.) Discharge Diet: Regular Discharge Activity: Resume usual activity Patient Instructions: Albuterol (By breathing), Azithromycin (By mouth), Opioid Safety Discharge Attestations Time Spent in Discharge Care*: less than 30 min Specific Discharge Activities: educating patient, educating and/or supporting family/caregiver, discussing with pcp/other providers, discussing with disease case manager/social workers/dc planners, documenting/other paperwork and evaluating patient/reviewing data Status at Discharge: Cognitive status at discharge: cognitively intact, Behavioral status at discharge: cooperative, Functional status at discharge: independent ambulation Overall status at discharge: patient is back to baseline Quality Metrics Clinical Quality Measures During this hospital stay, did patient experience: None Coding Level of Care Code Acute g FW DC note Diagnoses COPD (chronic obstructive pulmonary disease) J44.9 Fever R50.9 Hypoxia R09.02 Psoriatic arthritis L40.50 Current chronic use of systemic steroids Z79.52
--- NOTE | 2021-02-01 11:21 | PC.NURSE ---
discharge instructions given to patient and patient verbalized understanding of instructions. patient's meds delivered to bed. patient waiting on family for ride home.
--- NOTE | 2021-02-01 12:55 | PC.NURSE ---
patient taken home by mother. patient walked to private vehicle per his request.
== END 2021-02-01 12:56 | disposition home or self-care (01) ==
LOC: ER 18:14 → MEDSURG 22:42
PROVIDERS: Physician Assistant; Admitting Provider Internal Medicine; Emergency Provider Family Medicine; PCP Internal Medicine; Visit Provider Internal Medicine
DX: J44.9 Chronic obstructive pulmonary disease, unspecified (principal); R50.9 Fever, unspecified; R09.02 Hypoxemia; L40.50 Arthropathic psoriasis, unspecified; Z79.52 Long term (current) use of systemic steroids
CPT/HCPCS: 36415; 36600; 71045; 71275; 80053; 82803; 83605; 83735; 84145; 84484; 85025; 85378; 85610; 85730; 86140; 87040; 87635; 87801; 87804; 93005; 94640; 96365; 96372; 96375; 99285; G0378; J0456; J1650; J2920; J7050; Q9967

== ENCOUNTER 2021-04-26 18:03 | Observation (INO) | payer MEDICARE, SELFPAY ==
[2021-04-26] VITALS (28 sets, daily range): BP systolic 106–164; BP diastolic 70–111; PULSE 68–200; RESP 8–26; TEMP 36–36.8; O2SAT 94–97; BMI 34.3
--- NOTE | 2021-04-26 18:07 | ECG_ITS ---
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 Measurements Intervals [place] Rate: 102 P: MD: QRS: -1 QRSD: 91 T: 49 QT: 330 QTc: 431 Interpretive Statements SINUS TACHYCARDIA WITH PREMATURE ATRIAL COMPLEXES Compared to ECG 01/31/2021 15:30:08 NO SIGNIFICANT CHANGE Electronically Signed On 04-26-2021 22:22:19 CDT by Davis Negron M.D. [id number]
--- NOTE | 2021-04-26 18:26 | W.ED.GENADLT ---
HPI - General Adult General: Chief complaint: General Medical Stated complaint: High Blood Pressure\Dizzy Time Seen by Provider: 04/26/21 18:26 History of Present Illness: Mr. Ross is a 60-year-old gentleman with history of COPD, hypertension, psoriatic arthritis who presents to the emergency department due to high blood pressure and lightheadedness with presyncope. He reports approximately 1 week ago a medication was added to his antihypertensive regimen though is unsure of exactly what which 1. He began feeling mildly ill over the next few days however today has felt significantly worse. He endorses episodes of high heart rate with minimal heart rate of approximately 100, his blood pressure has been variable including 170s over 140s and he has had lightheaded with presyncope episodes. He has felt generally tingly at times though denies specific neurologic or focal symptoms. He denies associated infectious symptoms or other changes in medication. His p.o. intake has been normal. He denies chest pain or shortness of breath. Intensity of symptoms is moderate to severe. Course has been worsening. No other specific changes in health, exacerbating, or alleviating factors identified. Onset (ago): day(s) Severity: moderate Review of Systems General: Reports: 10 or more systems reviewed and unremarkable except in HPI and below PFSH ED PFSH: Medical History Cervical spondylosis COPD (chronic obstructive pulmonary disease) Current chronic use of systemic steroids Dyspnea Fever Fibromyalgia GERD (gastroesophageal reflux disease) High risk medication use Hypoxia Immunization counseling Immunosuppression Lumbosacral spondylosis with radiculopathy Posterior tibial tendon dysfunction, bilateral Psoriasis Psoriatic arthritis Surgical History History of appendectomy History of ear, nose, and throat (ENT) surgery History of repair of anterior cruciate ligament of right knee Hx of hemorrhoidectomy Family History Denies family history of Diabetes Cancer Stroke Social History Smoking and tobacco status: never smoked Alcohol intake: never Lives independently: No Household members: spouse Marital status: Current occupational status: disabled History of recent travel: No Physical Exam Const: COMMON NORMALS: alert GENERAL APPEARANCE: cooperative, well developed and ill appearing (Somewhat) HENMT: COMMON NORMALS: normocephalic and atraumatic HEAD & SCALP: normocephalic and atraumatic Eye: COMMON NORMALS: conjunctivae normal CONJUNCTIVA: Yes conjunctivae normal SCLERA: sclerae normal Neck/C-Spine: COMMON NORMALS: supple GENERAL: Yes trachea midline Resp: EFFORT & INSPECTION: Yes able to speak in complete sentences AUSCULTATION: diminished lung sounds Cardio: RATE: tachycardic RHYTHM: abnormal rhythm with ectopic beats GI: COMMON NORMALS: Soft to palpation PALPATION: Yes Soft to palpation and No Tenderness to palpation present (GI) PERCUSSION: normal to percussion Extremity: GENERAL: Yes normal exam except as noted and No edema Neuro: COMMON NORMALS: moves all extremities SENSORIUM/ORIENTATION: Yes alert and No Orientation impaired Psych: COMMON NORMALS: mental status grossly normal and Normal thought process present THOUGHT PROCESS: Normal thought process present Skin: NARRATIVE SKIN EXAM: Diaphoretic Course ED course: - Patient was seen and evaluated by me at bedside - Patient placed on cardiac monitors, IV access obtained - Initial evaluation notable for exam as above - Patient was given IV fluids - Labs and x-ray interpreted by me - Labs notable for No leukocytosis. Normal hemoglobin. Sodium mildly low with analysis noted for potassium. Magnesium mildly low grade replenishment ordered. Delta troponin is negative her D-dimer is negative. Final studies negative. - Imaging notable for head CT which was obtained due to syncope. Chest x-ray without evidence of lobar consolidation. - Orthostatic vital signs were ordered however shortly after return from sitting the patient had approximately 10 to run of ventricular tachycardia. Subsequent heart rate was sinus in appearance however rates in the 200s. While in the process of spasm patient and said no further intervention is already spontaneously improved. While in the emergency room he had additional episodes of markedly increased heart rate though appeared in sinus associated with position change and at times without position change. He does become symptomatic with heart rate changes. - Patient was serially reexamined. For burst suppression of heart rate esmolol ordered. - Based on patient history, evaluation, labs, and imaging as interpreted the most likely cause of the patient's condition is ventricular tachycardia, SVT, tachyarrhythmia of uncertain etiology - The results of ED evaluation were discussed with the patient including plan for admission due to requirement for level of care not available if discharged to prevent significant worsening/deterioration. - Case discussed with cardiology, consultation ordered placed. - Hospice was contacted and agreed to the patient - Patient was admitted without further deterioration. Note: Click bubbles or prepopulated henson in note writing are used for assistance with data collection and billing and are inherently more limited than narrative and other text portions of this note. Please use narrative for additional clinical history and defer to narrative/free test for any case of contradictory information. If information appears in only free text or click bubble it should be considered present or absent as reported. Please contact note underwriter solicitation director for clarifications of clinical information or contradictory information. MDM is a brief summary, contradictory or erroneous seeming information should be clarified and full note should be reviewed. Vital Signs: Vital signs: Vital Signs Temperature 98.3 F 04/28/21 07:51 Pulse Rate 102 H 04/28/21 13:07 Respiratory Rate 16 04/28/21 13:35 Blood Pressure 104/85 04/28/21 13:35 Pulse Oximetry 96 04/28/21 13:35 MDM - General Adult Medical Decision Making 60-year-old gentleman presenting with syncope and collapse. Patient found to have marked tachyarrhythmia including a approximate 10-second run ventricular tachycardia. No history of similar. Admitted for further definitive management and treatment. Medical Records I reviewed the patient's medical records. Lab Data I reviewed the patient's lab results. : 04/28/21 02:17 04/28/21 02:17 Radiology Impressions Chest X-Ray 04/26/21 18:35 IMPRESSION: 1. No acute cardiopulmonary process. 2. Incidental/nonacute findings are listed in the report. Head CT 04/26/21 18:35 IMPRESSION: 1. No acute abnormality of the brain. 2. Incidental/nonacute findings are listed in the report. Laboratory Results WBC 7.5 10^3/uL (4.0-10.0) 04/26/21 18:37 RBC 4.30 10^6/uL (4.1-5.3) 04/26/21 18:37 Hgb 12.6 g/dL (11.7-16.6) 04/26/21 18:37 Hct 39.2 % (42.0-52.0) L 04/26/21 18:37 MCV 91.2 fl (80-94) 04/26/21 18:37 MCH 29.3 pg (28.0-34.0) 04/26/21 18:37 MCHC 32.1 g/dL (30.0-36.0) 04/26/21 18:37 RDW 14.6 % (12.1-15.1) 04/26/21 18:37 Plt Count 343 10^3/cmm (130-400) 04/26/21 18:37 MPV 10.0 fL (7.4-10.4) 04/26/21 18:37 Neut % (Auto) 65.1 % 04/26/21 18:37 Lymph % (Auto) 22.1 % 04/26/21 18:37 [place] % (Auto) 11.5 % 04/26/21 18:37 Eos % (Auto) 0.5 % 04/26/21 18:37 Baso % (Auto) 0.4 % 04/26/21 18:37 Neut # (Auto) 4.90 10^3/uL (1.8-7.7) 04/26/21 18:37 Lymph # (Auto) 1.7 10^3/uL (0.8-4.8) 04/26/21 18:37 [place] # (Auto) 0.9 10^3/uL (0.2-0.9) 04/26/21 18:37 Eos # (Auto) 0.0 10^3/uL (0.0-0.8) 04/26/21 18:37 Baso # (Auto) 0.0 10^3/uL (0.0-0.1) 04/26/21 18:37 Nucleated RBC % (auto) 0 % 04/26/21 18: Nucleated RBCs # 0.0 /100WBC 04/26/21 18:37 Sodium 135 mmol/L (136-145) L 04/26/21 18:37 Potassium 3.7 mmol/L (3.5-5.1) 04/26/21 18:37 Chloride 96 mmol/L (98-107) L 04/26/21 18:37 Carbon Dioxide 26 mmol/L (22-29) 04/26/21 18:37 Anion Gap 16.7 (5-19) 04/26/21 18:37 BUN 17 mg/dL (8-23) 04/26/21 18:37 Creatinine 0.8 mg/dL (0.7-1.2) 04/26/21 18:37 GFR Calculation 98.0 mL/min (90-130) 04/26/21 18:37 Glucose 97 mg/dL (65-115) 04/26/21 18:37 Calculated Osmolality 281 mOsm/kg (285-295) L 04/26/21 18:37 Calcium 10.0 mg/dL (8.5-10.5) 04/26/21 18:37 Magnesium 1.8 mg/dL (1.7-2.3) 04/26/21 18:37 Total Bilirubin 0.2 mg/dL (0.15-1.2) 04/26/21 18:37 AST 35 U/L (0-40) 04/26/21 18:37 ALT 31 U/L (0-41) 04/26/21 18:37 Alkaline Phosphatase 70 IU/L (40-130) 04/26/21 18:37 Troponin T Baseline 18 ng/L (0-15) H 04/26/21 18:37 Troponin T 120 Minute 19.01 ng/L (0-15) H 04/26/21 20:19 Delta Troponin T 1.01 ABS# (0-10) 04/26/21 20:19 NT-Pro-B Natriuret Pep 45 pg/mL (0-125) 04/26/21 18:37 Total Protein 7.7 g/dL (6.6-8.7) 04/26/21 18:37 Albumin 4.8 g/dL (3.5-5.2) 04/26/21 18:37 Globulin 2.9 g/dL (1.3-4.6) 04/26/21 18:37 Lipase 54 U/L (13-60) 04/26/21 18:37 TSH 0.65 uIU/mL (0.27-4.20) 04/26/21 18:37 Influenza Type A Ag Negative (Negative) 04/26/21 18:45 Influenza Type B Ag Negative (Negative) 04/26/21 18:45 SARS-CoV-2 Ag (Rapid) Negative (Negative) 04/26/21 18:45 EKG Data EKG 1: I personally reviewed and interpreted this EKG as follows: EKG interpretation date: 04/26/21 EKG interpretation time: 18:36 Interpretation: Twelve-lead EKG shows a regular the rate of 102. MS interval normal, QRS duration 91, QTc 389. Normal axis. Interpretation: Sinus rhythm. Irregular rhythm. Computer generated interpretation: Chest X-Ray 04/26/21 18:35 IMPRESSION: 1. No acute cardiopulmonary process. 2. Incidental/nonacute findings are listed in the report. Head CT 04/26/21 18:35 IMPRESSION: 1. No acute abnormality of the brain. 2. Incidental/nonacute findings are listed in the report. EKG 2: I personally reviewed and interpreted this EKG as follows: EKG interpretation date: 04/26/21 EKG interpretation time: 20:04 Interpretation: Twelve-lead EKG shows a regular rhythm at a rate of 99. MS interval normal, QRS duration 98, QTc 405. Borderline axis. Interpretation: Sinus rhythm. Arrhythmia. Computer generated interpretation: Chest X-Ray 04/26/21 18:35 IMPRESSION: 1. No acute cardiopulmonary process. 2. Incidental/nonacute findings are listed in the report. Head CT 04/26/21 18:35 IMPRESSION: 1. No acute abnormality of the brain. 2. Incidental/nonacute findings are listed in the report. EKG 3: I personally reviewed and interpreted this EKG as follows: EKG interpretation date: 04/26/21 EKG interpretation time: 20:54 Interpretation: Twelve-lead EKG shows a regular rhythm at a rate of 134 MS interval appears grossly normal, QRS duration 86, QTc 412 Borderline axis Interpretation: Sinus tachycardia with irregularity. Computer generated interpretation: Chest X-Ray 04/26/21 18:35 IMPRESSION: 1. No acute cardiopulmonary process. 2. Incidental/nonacute findings are listed in the report. Head CT 04/26/21 18:35 IMPRESSION: 1. No acute abnormality of the brain. 2. Incidental/nonacute findings are listed in the report. Critical Care Time Critical Care Time: Critical Care Time: Yes Total Critical Care Time: 50 Attestation: Due to a high probability of clinically significant, possibly life threatening deterioration, the patient required my highest level of attention and preparedness to intervene emergently and I personally spent this critical care time directly and personally managing the patient. This critical care time included obtaining a history; examining the patient; pulse oximetry; ordering and review of laboratory and imaging studies; arranging urgent treatment with development of a management plan; evaluation of patient's response to treatment; frequent reassessment; and, discussions with other providers as applicable. It was exclusive of separately billable procedures. Primary system involved is cardiovascular. Discharge Plan Discharge Patient Disposition: Admitted As Inpatient Admit Provider: Freddie Gonzalez Clinical Impression: Ventricular tachycardia, Tachyarrhythmia Condition: Stable Discharge Diet: Diabetic Discharge Activity: Increase activity as tolerated Coding Level of Care Code ED Geospatial Analyst for Chg Fwd Exam Comprehensive
--- NOTE | 2021-04-26 18:35 | XRR_ITS ---
PROCEDURE INFORMATION: Exam: XR Chest Exam date and time: 04/26/2021 6:35 PM Age: 60 years old Clinical indication: Other: Tachycardia, hypertension TECHNIQUE: Imaging protocol: XR of the chest. Views: 1 view. COMPARISON: CR XR chest 1V portable [id number] 01/31/2021 11:09 AM FINDINGS: Lungs: Lungs are clear bilaterally. Pleural spaces: No pleural effusion. No pneumothorax. Heart/Mediastinum: Stable mild enlargement of the cardiac silhouette. Mediastinal contours are unremarkable. Bones/joints: Unremarkable for age. XR/XR chest 1V portable [id number] IMPRESSION: 1. No acute cardiopulmonary process. 2. Incidental/nonacute findings are listed in the report.
--- NOTE | 2021-04-26 18:35 | CTR_ITS ---
PROCEDURE INFORMATION: Exam: CT Head Without Contrast Exam date and time: 04/26/2021 6:35 PM Age: 60 years old Clinical indication: Syncope and collapse; Additional info: Lightheadedness, presyncope TECHNIQUE: Imaging protocol: Computed tomography of the head without contrast. Sagittal and coronal reformatted images were created and reviewed. Radiation optimization: All CT scans at this facility use at least one of these dose optimization techniques: automated exposure control; mA and/or kV adjustment per patient size (includes targeted exams where dose is matched to clinical indication); or iterative reconstruction. COMPARISON: No relevant prior studies available. RADIATION DOSE METRICS: Total DLP (mGy-cm): 1043.85 FINDINGS: Brain: No acute intracranial hemorrhage. No acute infarct. No intra-axial or extra-axial masses. Coe-white matter differentiation is preserved. No cerebral edema. No extra-axial fluid collections. No midline shift. Cerebral ventricles: No hydrocephalus. Paranasal sinuses: Small mucus retention cyst in the left sphenoid sinus. Other visualized paranasal sinuses are clear. Mastoid air cells: Mastoid air cells are clear bilaterally. Orbital cavities: Globes and lenses, extraocular muscles, and optic nerves are intact bilaterally. No acute intraorbital abnormality. Vasculature: Mild atherosclerotic changes in the visualized arteries. 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 Soft tissues: No acute abnormality of the extracranial soft tissues. CT/CT head wo con* [id number] IMPRESSION: 1. No acute abnormality of the brain. 2. Incidental/nonacute findings are listed in the report.
[2021-04-26] MEDS: lactated ringers 500 ML 999 ML IV (18:48)
[2021-04-26 18:52] LABS: Basophils % 0.4 %; Eosinophils % 0.5 %; Hematocrit 39.2 % (42.0-52.0); Hemoglobin 12.6 g/dL (11.7-16.6); Lymphocytes # 1.7 10^3/uL (0.8-4.8); Lymphocytes % 22.1 %; Mean Corpuscular HGB Conc 32.1 g/dL (30.0-36.0); Mean Corpuscular Hemoglobin 29.3 pg (28.0-34.0); Mean Corpuscular Volume 91.2 fl (80-94); Monocytes # 0.9 10^3/uL (0.2-0.9); Monocytes % 11.5 %; Neutrophils % 65.1 %; Nucleated Red Blood Cells % 0 %; Platelet Count 343 10^3/cmm (130-400); Red Cell Distribution Width 14.6 % (12.1-15.1); White Blood Count 7.5 10^3/uL (4.0-10.0)
[2021-04-26 19:17] LABS: Troponin(5th) Baseline 18 ng/L (0-15)
[2021-04-26 19:28] LABS: Alanine Aminotransferase 31 U/L (0-41); Albumin Level 4.8 g/dL (3.5-5.2); Alkaline Phosphatase 70 IU/L (40-130); Aspartate Amino Transferase 35 U/L (0-40); Blood Urea Nitrogen 17 mg/dL (8-23); Carbon Dioxide 26 mmol/L (22-29); Chloride 96 mmol/L (98-107); Globulin 2.9 g/dL (1.3-4.6); Glucose 97 mg/dL (65-115); Lipase 54 U/L (13-60); Magnesium 1.8 mg/dL (1.7-2.3); NT Pro B Type Natriuretic Pept 45 pg/mL (0-125); Osmolality Calculated 281 mOsm/kg (285-295); Sodium 135 mmol/L (136-145); Thyroid Stimulating Hormone 0.65 uIU/mL (0.27-4.20); Total Bilirubin 0.2 mg/dL (0.15-1.2); Total Protein 7.7 g/dL (6.6-8.7)
[2021-04-26 19:31] LABS: Influenza A by IFA Negative (Negative); Influenza B by IFA Negative (Negative); SARS Covid-2 Antigen Negative (Negative)
[2021-04-26 19:41] LABS: Anion Gap 16.7 (5-19); Potassium 3.7 mmol/L (3.5-5.1)
--- NOTE | 2021-04-26 20:02 | ECG_ITS ---
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 Measurements Intervals [place] Rate: 134 P: [place]: QRS: 6 QRSD: 86 T: 45 QT: 333 QTc: 499 Interpretive Statements Sinus tacycardia with premature atrial complexes Compared to ECG 04/26/2021 20:03:21 No significant changes Electronically Signed On 04-26-2021 22:20:02 CDT by Davis Negron M.D. [email or web address] [email or web address] hospitalBapul/[id number]
--- NOTE | 2021-04-26 20:05 | PC.NURSE ---
While performing orthostatic vitals, pt was sitting on edge of bed, complained of being flushed and ears burning, pt was noted to be in V-tach at a rate of 200, pt placed supine and Dr. Schultz called into room, after 6-10 seconds patient returned to normal rate and rhythm. Pt now comfortable.
--- NOTE | 2021-04-26 20:07 | ECG_ITS ---
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 Measurements Intervals [place] Rate: 99 P: [place]: QRS: -3 QRSD: 98 T: 66 QT: 349 QTc: 449 Interpretive Statements SINUS RHYTHM WITH PREMATURE VENTRICULAR CONTRACTIONS Compared to ECG 04/26/2021 18:29:55 No significant changes Electronically Signed On 04-27-2021 20:24:03 CDT by Davis Negron M.D. [email or web address] [employer].Cool de Sacgulf coast veterans health care systemSeatIDsuburban community hospital & brentwood hospitalGlobal Renewables/store/OM/[id number]
[2021-04-26] MEDS: potassium chloride ER 20 mEq Tablet 40 MEQ PO (20:08)
[2021-04-26] MEDS: magnesium sulfate premix 2 GM/50 ML PIGGYBACK IV (20:08)
[2021-04-26 21:18] LABS: Troponin 5 2HR 19.01 ng/L (0-15); Troponin 5 2HR Delta 1.01 ABS# (0-10)
[2021-04-26 21:39] LABS: Potassium 3.3 mmol/L (3.5-5.1)
[2021-04-26] MEDS: metoprolol tartrate 25 mg Tablet PO (21:39)
[2021-04-26 22:10] LABS: D Dimer 0.47 ug/mIFEU (0-0.59)
--- NOTE | 2021-04-26 22:30 | PC.NURSE ---
Transfer Note Patient transferred to ICU from ER via stretcher. Handoff received from MANPREET Kline. Patient oriented to environment and equipment. Covering service notified. Orders reviewed and will continue to monitor. Family and/or patient representative notified.
--- NOTE | 2021-04-26 22:35 | P.HP_ITS ---
Providers/Chief Complaint Admitting Physician: Freddie Gonzalez Primary Care Provider: Dameon Perrin DO Chief Complaint: High Blood Pressure\Dizzy History of Present Illness Pleasant 61-year-old gentleman with history of psoriatic arthritis, hypertension, possible COPD, reports recently has been doing well apart from some mild lower back pain, and has started experiencing symptoms of lightheadedness, at one point having to sit down because he would felt like he was going to faint, in ER found to have episodes of tachycardia up to 200 bpm. He received electrolyte replacement for K and Mg. Mild improvement noted but still with episodes of tachycardia and lightheadedness when tried to get up to urinate. He denies chest pain or pressure. He reports he was recently started on a new medication for his blood pressure in addition to amlodipine and propranolol which he had been taking for a long time. Review of Systems Const: Denies: fever(s), chills, body aches or malaise Eyes: Denies: change in vision or eye redness ENMT: Denies: throat pain, oral sores or ear or mastoid pain Card: Reports: palpitations and pre-syncope; Denies: chest pain, edema or dyspnea on exertion Resp: Denies: dyspnea, productive cough, change in phlegm color or hemoptysis GI: Denies: abdominal pain, nausea, vomiting, diarrhea, constipation, hematochezia or melena : Denies: flank pain, difficulty urinating, urinary frequency or hematuria Musc: Denies: back pain, joint swelling or joint redness Skin/Breast: Denies: rash, sores or new lesions Neuro: Denies: headache(s), numbness in extremities, weakness in extremities, dizziness, confusion or seizure-like activity Endo: Denies: polyuria or polydipsia Neri/Lymph: Denies: easy bleeding or purpura All/Imm: Denies: urticaria, throat swelling or tongue swelling Medications/Allergies Home Medications Medication Instructions Recorded Confirmed Last Taken Type amlodipine 10 mg tablet 10 mg PO QAM 03/11/19 04/26/21 04/26/21 History atorvastatin 40 mg tablet 40 mg PO BEDTIME 03/11/19 04/26/21 04/25/21 History duloxetine 60 mg capsule,delayed 60 mg PO QAM 03/11/19 04/26/21 04/26/21 History release sprinkle zolpidem 10 mg tablet 10 mg PO BEDTIME tab 03/25/19 04/26/21 04/25/21 History hydrocodone 10 mg-acetaminophen 1 tab PO QID PRN 05/27/19 04/26/21 Unknown History 325 mg tablet leflunomide 20 mg tablet 20 mg PO DAILY #90 tab 12/21/20 04/26/21 04/26/21 Rx alprazolam 0.5 mg tablet 0.5 mg PO TID PRN 01/31/21 04/26/21 04/26/21 History pantoprazole 40 mg tablet,delayed 40 mg PO BEDTIME 01/31/21 04/26/21 04/25/21 History release prednisone 5 mg tablet 5 mg PO QAM 01/31/21 04/26/21 04/26/21 History propranolol 60 mg tablet 60 mg PO DAILY 01/31/21 04/26/21 04/26/21 History albuterol sulfate 90 mcg/actuation 1 inh INHALATION Q6H PRN #6.7 g 02/01/21 04/26/21 Unknown Rx aerosol inhaler (ProAir HFA) Lactobacillus acidophilus 10 mg PO DAILY 04/26/21 04/26/21 04/26/21 History (Acidophilus) chlorthalidone 25 mg tablet 25 mg PO DAILY 04/26/21 04/26/21 04/26/21 History tofacitinib 5 mg tablet (Xeljanz) 5 mg PO BID 04/26/21 04/26/21 04/26/21 History Allergies Allergy/AdvReac Type Severity Reaction Status Date / Time aspirin Allergy Unknown Verified 04/26/21 19:52 diphenoxylate Allergy Unknown Verified 04/26/21 19:52 PFSH Acute PFSH: Medical History Cervical spondylosis COPD (chronic obstructive pulmonary disease) Current chronic use of systemic steroids Dyspnea Fever Fibromyalgia GERD (gastroesophageal reflux disease) High risk medication use Hypoxia Immunization counseling Immunosuppression Lumbosacral spondylosis with radiculopathy Posterior tibial tendon dysfunction, bilateral Psoriasis Psoriatic arthritis Surgical History History of appendectomy History of ear, nose, and throat (ENT) surgery History of repair of anterior cruciate ligament of right knee Hx of hemorrhoidectomy Family History Denies family history of Diabetes Cancer Stroke Social History Smoking and tobacco status: never smoked Alcohol intake: never Lives independently: No Household members: spouse Marital status: Current occupational status: disabled History of recent travel: No Vitals/I&O/Wt Last Vital Signs Temp 98.3 F 04/26/21 18:30 Pulse 80 04/26/21 22:08 Resp 18 04/26/21 22:08 BP 118/98 04/26/21 22:08 Pulse Ox 94 04/26/21 22:08 04/26/21 04/26/21 04/26/21 06:59 14:59 22:59 Intake Total 550 / 550 Balance 550 / 550 Weight last 48 hrs Weight 96.615 kg Physical Exam Const: COMMON NORMALS: no acute distress and patient oriented x3 NUTRITIONAL APPEARANCE: overweight HENMT: COMMON NORMALS: oropharynx normal Neck/C-Spine: COMMON NORMALS: no JVD Resp: COMMON NORMALS: normal respiratory effort and clear to auscultation bilaterally AUSCULTATION: clear to auscultation bilaterally Cardio: COMMON NORMALS: no JVD, regular rhythm, S1 normal heart sound present, S2 normal heart sound present and No murmurs present (Cardio) RHYTHM: regular rhythm HEART SOUNDS: S1 normal heart sound present and S2 normal heart sound present GI: COMMON NORMALS: Normal to inspection, nondistended, normoactive bowel sounds present, Soft to palpation and non-tender PALPATION: Yes Soft to palpation Extremity: COMMON NORMALS: no joint enlargement and no pedal edema Neuro: COMMON NORMALS: patient oriented x3 and moves all extremities Skin: COMMON NORMALS: no rashes or lesions noted GENERAL SKIN EXAM: no rashes or lesions noted Data : 04/26/21 18:37 04/26/21 21:08 A&P Assessment and plan (1) Tachyarrhythmia: Multiple episodes of tachycardia up to 200 bpm/min. Also noted initially to have a run of VT. Narrow complex tachycardia on EKG, with different P wave morphologies, appears to have possibly have MAT. While at rest he is doing well, but with getting up he becomes again significantly tachycardic, lightheaded. Esmolol drip was prepared, but not started as at rest his heart rates are 80s- 90s. Started metoprolol 25 mg, will continue twice daily. Hold propranolol for now. Assess TTE. Complete troponin EKG series to work-up for possible ischemia. Appreciate cardiology recommendations. Recheck electrolytes. Did benefit from some replacement of potassium and magnesium in ER. TSH normal. Possible COPD, although he states he felt it was more due to allergy to flower pollen. Would benefit from PFT. He also reports he snores at night, would benefit from sleep study to assess for NAVI possibly contributing/triggering tachyarrhythmia. 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
--- NOTE | 2021-04-26 22:47 | USCV_ITS ---
Transthoracic Echo Jame Ross Age: 60 Gender: M : 1960 Exam Date: 04/26/2021 23:12 Ordering Phys: Freddie Gonzalez MD Technologist: Samir Hoskins [place] [facility] [place]: Tachycardia, Orthostasis BP: 112 / 89 HR: 71 Rhythm: Sinus Technical Quality: Adequate MEASUREMENTS (Male / Female) Normal Values 2D ECHO LV Diastolic Diameter PLAX 4.7 cm 4.2 - 5.9 / 3.9 - 5.3 cm LV Systolic Diameter PLAX 4.0 cm IVS Diastolic Thickness 0.9 cm 0.6 - 1.0 / 0.6 - 0.9 cm IVS Systolic Thickness 1.3 cm LVPW Diastolic Thickness 1.1 cm 0.6 - 1.0 / 0.6 - 0.9 cm LVPW Systolic Thickness 0.9 cm LVOT Diameter 2.1 cm LV Ejection Fraction 2D Teich 34.3 % LV Ejection Fraction MOD 2C 46.2 % LV Ejection Fraction 2C AL 50.7 % LA Diameter 2.9 cm LA Width 3.0 cm LA Height 3.6 cm RA Width 3.1 cm RA Height 5.1 cm Aorta at Sinotubular Diameter 2.6 cm M-MODE Aortic Annulus Diameter 2.6 cm LA Ao Ratio MM 0.9 MV E Point Septal Separation 0.4 cm DOPPLER AV Peak Velocity 96.0 cm/s LVOT Peak Velocity 68.0 cm/s AV Area Cont Eq vti 3.4 cm squared AV Area Cont Eq pk 2.5 cm squared MV Peak Velocity 72.0 cm/s MV Area PHT 4.2 cm squared Mitral E to A Ratio 0.7 MV E' Velocity 29.5 cm/s Mitral E to MV E' Ratio 8.3 Mitral E to LV E' Lateral Ratio 7.5 Mitral E to LV E' Septal Ratio 9.5 TR Peak Velocity 105.3 cm/s TR Peak Gradient 4.4 mmHg TR Mean Velocity 135.3 cm/s TR Mean Gradient 7.9 mmHg TR Velocity Time Integral 33.8 cm Right Atrial Pressure 3.0 mmHg Pulmonary Artery Systolic Pressu 7.4 mmHg PV Peak Velocity 72.0 cm/s RV Acceleration Time 0.1 s RV Ejection Time 0.3 s RV AcT/ET 0.3 FINDINGS Left Ventricle Normal left ventricular size. LV systolic function is mildly reduced with EF of 40-45%. Mild global hypokinesis however regional wall motion abnormalities cannot be accurately assessed because of poor ultrasonic windows. Grade 1 diastolic dysfunction Right Ventricle The right ventricle is normal in size and function. Right Atrium The right atrium is normal in size. Left Atrium The left atrium is normal in size. Mitral Valve Mild mitral annular calcification without significant stenosis or prolapse. There is trace mitral regurgitation. Aortic Valve Grossly normal valve without significant sclerosis or stenosis. There is no aortic regurgitation. Tricuspid Valve Grossly normal without significant stenosis or regurgitation. Pulmonary artery systolic pressure is normal. Pulmonic Valve Not well-visualized Pericardium Normal pericardium without effusion. Aorta Normal ascending aorta dimension. CONCLUSIONS Technically limited quality echocardiogram because of poor ultrasonic windows. LV systolic function is mildly reduced with EF of 40 to 45%. Mild global hypokinesis is seen however regional wall motion abnormalities cannot be accurately assessed because of poor ultrasonic windows. Grade 1 diastolic dysfunction. Trace mitral regurgitation. No comparison studies are available Davis Negron MD (Electronically Signed) Final Date: 27 April 2021 11:46 S
[2021-04-26] MEDS: pantoprazole DR 40 mg Tablet PO (23:06)
[2021-04-26] MEDS: atorvastatin 40 mg Tablet PO (23:06)
[2021-04-27] VITALS (88 sets, daily range): BP systolic 85–154; BP diastolic 56–106; PULSE 55–90; RESP 7–28; TEMP 35.7–35.8; O2SAT 89–98; BMI 34.2
[2021-04-27] MEDS: enoxaparin 40 mg/0.4 mL Syringe SUBCUT ×2 (01:00→20:08)
[2021-04-27] MEDS: ALPRAZolam 0.5 mg Tablet PO ×2 (03:12→21:38)
[2021-04-27 04:17] LABS: Basophils # 0.1 10^3/uL (0.0-0.1); Basophils % 0.7 %; Eosinophils # 0.1 10^3/uL (0.0-0.8); Eosinophils % 1.8 %; Hematocrit 37.1 % (42.0-52.0); Hemoglobin 11.6 g/dL (11.7-16.6); Lymphocytes # 1.9 10^3/uL (0.8-4.8); Lymphocytes % 26.8 %; Mean Corpuscular HGB Conc 31.3 g/dL (30.0-36.0); Mean Corpuscular Hemoglobin 29.5 pg (28.0-34.0); Mean Corpuscular Volume 94.4 fl (80-94); Mean Platelet Volume 10.1 fL (7.4-10.4); Monocytes # 0.9 10^3/uL (0.2-0.9); Monocytes % 12.6 %; Neutrophils # 4.15 10^3/uL (1.8-7.7); Neutrophils % 57.7 %; Nucleated Red Blood Cells % 0 %; Platelet Count 302 10^3/cmm (130-400); Red Blood Count 3.93 10^6/uL (4.1-5.3); Red Cell Distribution Width 14.6 % (12.1-15.1); White Blood Count 7.2 10^3/uL (4.0-10.0)
[2021-04-27 04:42] LABS: Alanine Aminotransferase 27 U/L (0-41); Alkaline Phosphatase 61 IU/L (40-130); Blood Urea Nitrogen 17 mg/dL (8-23); Calcium 9.6 mg/dL (8.5-10.5); Carbon Dioxide 26 mmol/L (22-29); Chloride 100 mmol/L (98-107); Globulin 3.1 g/dL (1.3-4.6); Glucose 94 mg/dL (65-115); Magnesium 2.4 mg/dL (1.7-2.3); Osmolality Calculated 285 mOsm/kg (285-295); Sodium 137 mmol/L (136-145); Total Bilirubin 0.3 mg/dL (0.15-1.2); Total Protein 7.1 g/dL (6.6-8.7)
[2021-04-27 04:43] LABS: Anion Gap 14.5 (5-19); Aspartate Amino Transferase 33 U/L (0-40); Potassium 3.5 mmol/L (3.5-5.1)
[2021-04-27] MEDS: duloxetine 60 mg Capsule PO (05:19)
[2021-04-27] MEDS: predniSONE 5 mg Tablet PO (05:19)
--- NOTE | 2021-04-27 05:26 | PC.NURSE ---
Shift Note Frequent safety and comfort rounds continue. Orders and/or nursing care completed as indicated. Patient monitored for response to intervention and treatment(s). Education provided includes medication teaching. Patient and family verbalized understanding of teaching. Patient had an uneventful night, he remains on room air and is alert/oriented x4. No wounds or skin issues are noted at this time. Patient had no reports of pain overnight and voided 300 mls of urine. Will continue to monitor.
[2021-04-27] MEDS: chlorthalidone 25 mg Tablet PO (09:10)
[2021-04-27] MEDS: metoprolol tartrate 25 mg Tablet PO (09:10)
--- NOTE | 2021-04-27 10:42 | PM.CONSULT ---
Providers/Reason For Consult Consulting Physician/Specialty*: Davis Negron MD/ Cardiology Reason for Consult*: Arrhythmias/ Ventricular tachycardia Requesting Physician: Dr Schultz Attending Physician: Madi Park MD Primary Care Provider: Dameon Perrin DO History of Present Illness History of Present Illness Jame Ross is a 60 year old male with past medical history of psoriatic arthritis, hypertension, COPD presented to the hospital with symptoms of lightheadedness and presyncope. In the ER he was found to have an episode of tachycardia up to 200 bpm and per ER physician he was in ventricular tachycardia at that time. It was a brief episode. Denied chest pain. Today on talking to him he mentions that he has had on and off chest discomfort episodes in the past. He had an echocardiogram performed today that shows mildly reduced LV systolic function with EF of 40 to 45%. EKG shows sinus tachycardia with PACs. Since his admission and being on the telemetry, no more ventricular tachycardia episodes were recorded. Review of Systems Const: Denies: fever(s), chills, body aches or malaise Eyes: Denies: change in vision or eye redness ENMT: Denies: throat pain, oral sores or ear or mastoid pain Card: Reports: palpitations and pre-syncope; Denies: chest pain, edema or dyspnea on exertion Resp: Denies: dyspnea, productive cough, change in phlegm color or hemoptysis GI: Denies: abdominal pain, nausea, vomiting, diarrhea, constipation, hematochezia or melena : Denies: flank pain, difficulty urinating, urinary frequency or hematuria Musc: Denies: back pain, joint swelling or joint redness Skin/Breast: Denies: rash, sores or new lesions Neuro: Denies: headache(s), numbness in extremities, weakness in extremities, dizziness, confusion or seizure-like activity Endo: Denies: polyuria or polydipsia Neri/Lymph: Denies: easy bleeding or purpura All/Imm: Denies: urticaria, throat swelling or tongue swelling Medications/Allergies Home Medications Medication Instructions Recorded Confirmed Last Taken Type amlodipine 10 mg tablet 10 mg PO QAM 03/11/19 04/26/21 04/26/21 History atorvastatin 40 mg tablet 40 mg PO BEDTIME 03/11/19 04/26/21 04/25/21 History duloxetine 60 mg capsule,delayed 60 mg PO QAM 03/11/19 04/26/21 04/26/21 History release sprinkle zolpidem 10 mg tablet 10 mg PO BEDTIME tab 03/25/19 04/26/21 04/25/21 History hydrocodone 10 mg-acetaminophen 1 tab PO QID PRN 05/27/19 04/26/21 Unknown History 325 mg tablet leflunomide 20 mg tablet 20 mg PO DAILY #90 tab 12/21/20 04/26/21 04/26/21 Rx alprazolam 0.5 mg tablet 0.5 mg PO TID PRN 01/31/21 04/26/21 04/26/21 History pantoprazole 40 mg tablet,delayed 40 mg PO BEDTIME 01/31/21 04/26/21 04/25/21 History release prednisone 5 mg tablet 5 mg PO QAM 01/31/21 04/26/21 04/26/21 History propranolol 60 mg tablet 60 mg PO DAILY 01/31/21 04/26/21 04/26/21 History albuterol sulfate 90 mcg/actuation 1 inh INHALATION Q6H PRN #6.7 g 02/01/21 04/26/21 Unknown Rx aerosol inhaler (ProAir HFA) Lactobacillus acidophilus 10 mg PO DAILY 04/26/21 04/26/21 04/26/21 History (Acidophilus) chlorthalidone 25 mg tablet 25 mg PO DAILY 04/26/21 04/26/21 04/26/21 History tofacitinib 5 mg tablet (Xeljanz) 5 mg PO BID 04/26/21 04/26/21 04/26/21 History Allergies Allergy/AdvReac Type Severity Reaction Status Date / Time aspirin Allergy Unknown Verified 04/26/21 19:52 diphenoxylate Allergy Unknown Verified 04/26/21 19:52 Current Medications Generic Name Dose Route Start Last Admin Trade Name Freq PRN Reason Stop Dose Admin Alprazolam 0.5 mg 04/26/21 22:13 04/27/21 03:12 Alprazolam 0.5 Mg Tablet PO 0.5 mg TID PRN Administration Anxiety Atorvastatin Calcium 40 mg 04/26/21 22:13 04/26/21 23:06 Atorvastatin 40 Mg Tablet PO 40 mg BEDTIME LADARIUS Administration Chlorthalidone 25 mg 04/27/21 09:00 04/27/21 09:10 Chlorthalidone 25 Mg Tablet PO 25 mg DAILY LADARIUS Administration Duloxetine HCl 60 mg 04/27/21 06:00 04/27/21 05:19 Duloxetine 60 Mg Capsule PO 60 mg QAM LADARIUS Administration Enoxaparin Sodium 40 mg 04/26/21 23:00 04/27/21 01:00 Enoxaparin 40 Mg/0.4 Ml Syringe SUBCUT 40 mg Q24H LADARIUS Administration Metoprolol Tartrate 25 mg 04/27/21 09:00 04/27/21 09:10 Metoprolol Tartrate 25 Mg Tablet PO 25 mg BID@0900,2100 LADARIUS Administration Non-Formulary Medication 5 mg 04/27/21 09:00 04/27/21 09:16 Tofacitinib [Xeljanz] PO Not Given BID LADARIUS Non-Formulary Medication 20 mg 04/27/21 09:00 04/27/21 09:16 Leflunomide PO Not Given DAILY LADARIUS Non-Formulary Medication 10 mg 04/27/21 09:00 04/27/21 09:16 Lactobacillus Acidophilus [Acidophilus] PO Not Given DAILY LADARIUS Pantoprazole Sodium 40 mg 04/26/21 22:13 04/26/21 23:[address] 40 Mg Tablet PO 40 mg BEDTIME LADARIUS Administration Prednisone 5 mg 04/27/21 06:00 04/27/21 05:19 Prednisone 5 Mg Tablet PO 5 mg QAM LADARIUS Administration PFSH Acute PFSH: Medical History Cervical spondylosis COPD (chronic obstructive pulmonary disease) Current chronic use of systemic steroids Dyspnea Fever Fibromyalgia GERD (gastroesophageal reflux disease) High risk medication use Hypoxia Immunization counseling Immunosuppression Lumbosacral spondylosis with radiculopathy Posterior tibial tendon dysfunction, bilateral Psoriasis Psoriatic arthritis Surgical History History of appendectomy History of ear, nose, and throat (ENT) surgery History of repair of anterior cruciate ligament of right knee Hx of hemorrhoidectomy Family History Denies family history of Diabetes Cancer Stroke Social History (Reviewed 04/27/21 @ 13:35 by Veronica Batres Smoking and tobacco status: never smoked Alcohol intake: never Lives independently: No Household members: spouse Marital status: Current occupational status: disabled History of recent travel: No Vitals/I&O/Wt Last Vital Signs Temp 96.4 F L 04/27/21 04:00 Pulse 74 04/27/21 10:08 Resp 16 04/27/21 10:08 BP 125/95 04/27/21 09:00 Pulse Ox 97 04/27/21 10:08 04/26/21 04/27/21 04/27/21 22:59 06:59 14:59 Intake Total 550 / 550 400 / 950 300 / 300 Output Total 300 / 300 Balance 550 / 550 100 / 650 300 / 300 Weight last 48 hrs Weight 212 lb 5 oz Weight 213 lb Physical Exam Narrative: GENERAL: Patient is alert, awake and oriented x3. [] NECK: No jugular vein distension. [] HEENT: No cyanosis. No icterus. No pallor. [] HEART: Regular S1 and S2. No murmur, rub or gallop. [] LUNGS: Clear to auscultate bilaterally. [] ABDOMEN: Soft, nontender and nondistended. Positive bowel sounds. No guarding, rebound or tenderness. [] CENTRAL NERVOUS SYSTEM: Grossly nonfocal. [] EXTREMITIES: Lower extremities with 1+ edema bilaterally. Pulses palpable in the lower extremities, both dorsalis pedis and posterior tibial. [] Data : 04/27/21 04:04 04/27/21 04:04 A&P Assessment and plan (1) Ventricular tachycardia: Status: Acute (2) Cardiomyopathy: Status: Acute (3) Tachyarrhythmia: Status: Acute Plan From the ER patient was reported to have episode of VT. So far on telemetry he has not had another episode of ventricular tachycardia in the ICU. Given his newly found low LV systolic function and ventricular tachycardia episode, will recommend coronary angiogram with possible percutaneous coronary intervention. I had a discussion with the patient regarding risks and benefits of the procedure. He understands the risks and benefits and wants to proceed with the procedure. N.p.o. past midnight. Continue current medications. If coronary arteries are normal, we will have him on outpatient event monitor and follow-up with cardiology. Thank you for involving us with care of this patient. We will continue to follow. Please call with questions. Coding Level of Care Code Acute Preform Machine Operator for Chg Fwd Diagnoses Ventricular tachycardia I47.2 Cardiomyopathy I42.9 Tachyarrhythmia R00.0
--- NOTE | 2021-04-27 11:43 | PM.PN ---
Subjective Subjective: There is plan plan to do angiogram secondary to low EF, overnight patient has been in sinus rhythm heart rate between 60 to 80s, I did not see any recurrence of V. tach SVT or MAT Telemetry reviewed, case discussed with Dr. Negron TSH normal, no severe electrolyte imbalance potassium 3.5, magnesium 2.4 Troponin without significant delta Patient is endorsing feeling better this morning, he is very active for his age Influenza negative, PCR negative for Covid Vitals/I&O/Wt Last Vital Signs Temp 96.4 F L 04/27/21 04:00 Pulse 74 04/27/21 10:08 Resp 16 04/27/21 10:08 BP 125/95 04/27/21 09:00 Pulse Ox 97 04/27/21 10:08 04/26/21 04/27/21 04/27/21 22:59 06:59 14:59 Intake Total 550 / 550 400 / 950 300 / 300 Output Total 300 / 300 Balance 550 / 550 100 / 650 300 / 300 Weight last 48 hrs Weight 96.303 kg Weight 96.615 kg Physical Exam Narrative: Euvolemic Very pleasant S1, S2 Abdomen soft Saturating well on room air Nonfocal neuro exam No audible stridor or wheezing EOMI, PERRLA Data : 04/27/21 04:04 04/27/21 04:04 A&P Assessment and plan (1) Tachyarrhythmia: Status: Acute (2) Hypokalemia: Status: Acute (3) Cardiomyopathy: Status: Acute (4) Psoriasis: Status: Acute Plan Symptomatic palpitations Tachyarrhythmia There was concern for V. tach however I do not have strips to review Overnight telemetry showed sinus rhythm heart rate between 60 to 80s TSH 6.6, PE less likely, D-dimer 0.4 Potassium 3.5 Magnesium 2.4 Troponin without significant delta No active chest pain Echo showed EF 40% There is plan to do an coronary angiogram tomorrow morning We will keep him n.p.o. after midnight appreciate cardiology recommendations Continue metoprolol for now Psoriasis arthritis without acute flare Patient is full code Cardiac diet now, n.p.o. after midnight DVT prophylaxis on board Electrolyte, hypokalemia: Repleted Attestations Medical Necessity Statement*: Continue hospitalization, patient can be transferred out of ICU to CSU Time Spent in Patient Care: 30mins Coding Level of Care Code Acute Phosphorus Processing Supervisor for g Fwd Diagnoses Tachyarrhythmia R00.0 Hypokalemia E87.6 Cardiomyopathy I42.9 Psoriasis L40.9
--- NOTE | 2021-04-27 11:57 | PC.CHAP ---
Pastoral Care Encounter/Spiritual Assessment Type of Contact [] Declined scada operator visit [] Patient/Family/Request visit [] Outpatient visit [] Follow-up visit [] Physician referral [] Code/Alert [x] Routine visit [] Staff referral [] Actively dying [] Patient sleeping [x] Family support [] [] Out of room [] Palliative care [] [] Receiving care in room [] Pre-surgical visit [] Trauma [] Long length of stay [x] ICU visit [] Other: Relational/Emotional Strength [] Patient feels connected with others/family/visitors/staff [] Distress [] Loneliness/isolation [] Abandonment Spirituality of Patient [] Person of Kaley [] Attends Presybeterian of their Kaley [] Believes in Prayer [] Reads Bible or Sabianism materials [] There are Spiritual issues to be addressed Pediatric Dermatologist Interventions [x] Prayer [x] Active listening [x] Non-anxious presence [x] Spiritual/emotional support [] Crisis/trauma care [] Spiritual counseling [] Bereavement support [] Provided bereavement packet [] Provided Bible/devotional materials [] Provided toy/stuffed animal, coloring book to patient or family member [] Provided Communion [] Anointing/[place] [] Salvation [x] Completed spiritual assessment [] Other: Impact on Illness or Injury [] Angry [] Fearful [] Anxious [] Often cries [] Exhaustion [] Unable to work [] Unable to attend christianity [] Unable to walk/stand [] Unable to read [] Unable to drive [] Unable to eat/drink [] Unable to sleep [] Unable to be with family [] Patient intubated [] Other: Summary big family support.. expected to be moved to cardiac stepdown Time spent with patient 10 min
[2021-04-27] MEDS: potassium chloride ER 20 mEq Tablet 40 MEQ PO (13:35)
[2021-04-27] MEDS: HYDROcodone-acetaminophen 10-325 mg Tablet 1 TAB PO (15:28)
[2021-04-27] MEDS: pantoprazole DR 40 mg Tablet PO (20:08)
[2021-04-27] MEDS: atorvastatin 40 mg Tablet PO (20:08)
[2021-04-28] VITALS (31 sets, daily range): BP systolic 104–140; BP diastolic 76–95; PULSE 72–115; RESP 4–24; TEMP 36.8; O2SAT 92–99
[2021-04-28 02:52] LABS: Basophils # 0.1 10^3/uL (0.0-0.1); Basophils % 0.7 %; Eosinophils # 0.2 10^3/uL (0.0-0.8); Eosinophils % 2.5 %; Hematocrit 37.9 % (42.0-52.0); Hemoglobin 12.1 g/dL (11.7-16.6); Lymphocytes # 1.8 10^3/uL (0.8-4.8); Lymphocytes % 25.2 %; Mean Corpuscular HGB Conc 31.9 g/dL (30.0-36.0); Mean Corpuscular Hemoglobin 29.2 pg (28.0-34.0); Mean Corpuscular Volume 91.5 fl (80-94); Mean Platelet Volume 10.3 fL (7.4-10.4); Monocytes % 13.6 %; Neutrophils # 4.18 10^3/uL (1.8-7.7); Neutrophils % 57.7 %; Nucleated Red Blood Cells % 0 %; Platelet Count 306 10^3/cmm (130-400); Red Blood Count 4.14 10^6/uL (4.1-5.3); Red Cell Distribution Width 14.5 % (12.1-15.1); White Blood Count 7.2 10^3/uL (4.0-10.0)
[2021-04-28 03:19] LABS: Alanine Aminotransferase 29 U/L (0-41); Albumin Level 4.3 g/dL (3.5-5.2); Alkaline Phosphatase 67 IU/L (40-130); Anion Gap 16.2 (5-19); Aspartate Amino Transferase 35 U/L (0-40); Blood Urea Nitrogen 20 mg/dL (8-23); Calcium 9.4 mg/dL (8.5-10.5); Carbon Dioxide 25 mmol/L (22-29); Chloride 98 mmol/L (98-107); Globulin 2.9 g/dL (1.3-4.6); Glucose 92 mg/dL (65-115); Osmolality Calculated 284 mOsm/kg (285-295); Potassium 3.2 mmol/L (3.5-5.1); Sodium 136 mmol/L (136-145); Total Bilirubin 0.2 mg/dL (0.15-1.2); Total Protein 7.2 g/dL (6.6-8.7)
[2021-04-28] MEDS: duloxetine 60 mg Capsule PO (06:49)
[2021-04-28] MEDS: predniSONE 5 mg Tablet PO (06:49)
[2021-04-28] MEDS: lidocaine 1% 5 ML in potassium chloride premix 100 ML 25 ML IV (07:49)
--- NOTE | 2021-04-28 07:55 | XACV_ITS ---
Exam Room: [facility] Ht: 168 cm Wt: 96 kg BSA: 2.15 m2 Gender: Male : 1960 Any Known Allergies: Other Exam Priority: Routine Procedure(s): Procedure Description: Diagnostic procedure Procedure Description: Left Heart Catheterization Procedure Description: Left ventriculography Procedure Description: Coronary Angiography Diagnostic Cath Status: Urgent Diagnostic Findings * Left Main has no disease. * Circumflex has no disease. * Right Coronary Artery has no disease. * Proximal Left Anterior Descending: luminal irregularities 20% stenosis, SAMMY: 3 flow. * Coronary angiography shows right dominance. Conclusions 1. Nonobstructive coronary artery disease. 2. Normal left ventricular systolic function. Ejection fraction of 55%. Recommendations * Aggressive risk factor management. * Outpatient cardiology follow-up in 2 to 4 weeks. Interventional RX Recommendation: medical therapy and/or counseling Diagnostic RX Recommendation: medical therapy and/or counseling Anticoagulation: Heparin Ventriculography Ejection Fraction: 55.0 % Pressures Phase:Rest AO : 103 / 77 ( 85 ) @ 10:08:00 AM 122 / 84 ( 96 ) @ 10:08:00 AM 118 / 83 ( 95 ) @ 10:17:00 AM 113 / 79 ( 92 ) @ 10:17:00 AM LV : 150 / 1 / 19 @ 10:16:00 AM 137 / 3 / 22 @ 10:17:00 AM 153 / -3 / 18 @ 10:17:00 AM Valves Phase:DefaultPhase AV : 40.0 @ 9:23:52 AM AV Mean Gradient: 26.0 @ 9:23:52 AM Clinical Evaluation EBL: 5mL-10mL Procedural Details Procedure Consent Obtained. Pre-Procedure Time Out. Identified patient by full name and date of as verbalized by the patient/guarantor. Does the consent match the physician's order: Yes. Accurate & Complete Informed Consent: Yes. Inpatient/Outpatient History & Physical on Chart: Yes. If H&P is completed, is and addenduem needed: No; If yes, is the addendum complete: N/A. Visualize and Verify Site with Patient/Guarantor: N/A. Relevant Radiology Images available: N/A. Pre-op teaching completed and patient verbalized understanding. The risks, benefits, and alternatives of sedation and/or procedure were discussed by physician. The patient agrees to continue. Procedure started. [facility] Clinical Fraility Score: 3: Managing Well. Cotton Seed Culler Indications: LV Dysfunction, vtach. Chest Pain Symptom Assessment: Atypical Angina. Cardiovascular Instability: No. Correct patient, site and procedure confirmed by cath team. IV Fluids: 0.9% NaCl at KVO. 0 mL infused prior to lab manager. Pre Procedural Pulses: bilateral radial was 3+. Oxygen started at 2liters/min via nasal canula. right groin was prepped with chloroprep then draped in the usual sterile fashion. right radial was prepped with chloroprep then draped in the usual sterile fashion. Baseline sample Acquired. HR: 88 BPM. Physician arrived. Equipment: 6F - Radial. Cardiac Cath Pack. ACIST Manifold Kit Model BT 2000. Heparinized Saline (2 units/mL), 1000 mL bag. A 22 gauge IV was started in the right anticubital using aseptic technique. Physician scrubbed in. Immediate Pre-Procedure Time Out. Correct Patient: Yes; Correct Procedure: Yes; Correct Site: Yes; Correct Patient Position: Yes; Correct Supplies: Yes; Dried Flammable Prep: Yes; Blood Products Available: N/A;. Lidocaine 1% infiltrated to the right radial. A 5 rwandan TIG catheter in over wire. Catheter redirected to the RCA. Multiple views taken of left coronary artery. Multiple views taken of right coronary artery. Catheter out. A 5 rwandan Angled Pig catheter in over wire. EDP Sample taken: LV 150/1,19; HR: 100 BPM; SpO2: 97%. LV gram performed in HYMAN @ 10 mL/second for a total of 30 mL. EDP Sample taken: LV 137/3,22; HR: 95 BPM; SpO2: 96%. Pullback taken: LV 153/-4,18; AO 118/83(95); Mean: 26mmHg, Peak to Peak: 40mmHg, SEP: 12sec/min; HR: 98 BPM; SpO2: 95%. Catheter out. Physician scrubbed out. A TR Band was successful obtaining hemostatsis at the Right Radial artery insertion site. TR band placed. Hemostasis obtained. Post Procedure: Pulses reassessed and unchanged. PERRLA. Strong, equal hand steam box hand bilaterally. No VTE prophylaxis required. Medication's Wasted: Lidocaine 1% = 18 mL. Medication's Wasted: Heparin = 1000 units. Medication's Wasted: Nitro = 49.8 mg. Total IV fluids: 50 mL. Contrast type used: Omnipaque 300 mg/mL, 150 mL bottle. Post-op diagnosis: non obstructive CAD. Complications: none. Estimated blood loss: 5mL-10mL. Responsiveness - Normal response to verbal stimuli; alert and oriented, PERRLA. Airway - Unaffected, no intervention required; spontaneous ventilation. Circulation: W/N/L, pulses unchanged. Nausea/Vomiting: No. Procedure completed. Patient transferred by wheelchair to 1st floor. Vital chart was stopped. Access Site Site: Right Radial artery Sheath Size: 6 Fr Hemostasis Method: TR Band Hemostasis Success: Successful Procedure Medications Start: 8:57 AM Stop: 8:57 AM Medication: Versed Amount: 1 mg Route: I.V. Start: 8:57 AM Stop: 8:57 AM Medication: Fentanyl Amount: 50 mcg Route: I.V. Start: 9:02 AM Stop: 9:02 AM Medication: Versed Amount: 1 mg Route: I.V. Start: 9:03 AM Stop: 9:03 AM Medication: Fentanyl Amount: 25 mcg Route: I.V. Start: 9:05 AM Stop: 9:05 AM Medication: Versed Amount: 1 mg Route: I.V. Start: 9:06 AM Stop: 9:06 AM Medication: Nitrogylcerin Amount: 200 mcg Route: I.A. Start: 9:13 AM Stop: 9:13 AM Medication: Heparin Amount: 5000 units Route: I.V. Start: 9:13 AM Stop: 9:13 AM Medication: Heparin Amount: 5000 units Route: I.V. Start: 9:13 AM Stop: 9:13 AM Medication: Versed Amount: 1 mg Route: I.V. Start: 9:13 AM Stop: 9:13 AM Medication: Fentanyl Amount: 25 mcg Route: I.V. I, the attending physician, have reviewed and verified all procedure medications. Yes, all medications given per verbal order History/Risk Factors Hypertension: Yes Dyslipidemia: No Peripheral Arterial Disease (PAD): No Myocardial Infarction (DC): No Obesity: No Renal Disease: No Prior Interventions PCI: No CABG: No Valve Surgery: No Report Signatures Finalized by Davis Negron MD on 04/28/2021 09:42 AM
[2021-04-28] MEDS: chlorthalidone 25 mg Tablet PO (08:05)
--- NOTE | 2021-04-28 08:57 | W.PM.OPSUD ---
Surgery/Procedure H&P Update DATE OF PROCEDURE: April 28, 2021 DATE H&P PERFORMED: 04/27/21 H&P UPDATE INFORMATION: I have reviewed H&P completed within last 30 days, I have examined patient prior to procedure and No changes to prior documentation PREOP DIAGNOSIS: LV dysfunction/Ventricular tachycardia PRIMARY INDICATION FOR PROCEDURE: LV dysfunction/Ventricular tachycardia PLANNED PROCEDURE: Left heart cath with possible percutaneous coronary intervention PATIENT REASSESSED PRIOR TO SEDATION, WITH NO CHANGE NOTED: Yes PHYSICAL EXAM: alert, oriented x 3, clear to auscultation bilaterally and regular rate & rhythm AIRWAY EVAL/ANESTHESIA PLAN: normal airway, ASA III, Monitored Anesthesia, Local Anesthesia, Risks, benefits & alternatives of sedation and/or procedure discussed and Patient agrees to continue as planned
--- NOTE | 2021-04-28 09:13 | PC.NURSE ---
to cardiac cath via w/c at 0830
--- NOTE | 2021-04-28 09:37 | PC.NURSE ---
return from cardiac center medical and lab director via w/c.report received.pt is alert and awake.sr on monitor.denies pain.right wrist with tr band on and inflated.right hand is warm to touch and with brisk capillary refill.palpable radial pulse noted distal to tr band.no hematoma noted.instructed in activity restrictions s/p radial artery procedure.instructed to notify staff for any bleeding,pain,numbness..or for any concerns at all.pt verb understanding.
--- NOTE | 2021-04-28 10:46 | PM.DCS ---
Discharge Providers Date of Admission: 04/26/21 21:05 Date of Discharge: April 28, 2021 Attending Provider at Admission: Freddie Gonzalez Attending Provider at Discharge: Madi Park MD Primary Care Provider: Dameon Perrin DO Diagnoses at Discharge Discharge Diagnosis (1) Ventricular tachycardia: Status: Acute (2) Cardiomyopathy: Status: Acute (3) Tachyarrhythmia: Status: Acute Reason for Visit Reason for Visit: High Blood Pressure\Dizzy Hospital Course Hospital Course This note was done by Dr Ramon Sandoval 61-year-old gentleman with history of psoriatic arthritis, hypertension, possible COPD, reports recently has been doing well apart from some mild lower back pain, and has started experiencing symptoms of lightheadedness, at one point having to sit down because he would felt like he was going to faint, in ER found to have episodes of tachycardia up to 200 bpm. He received electrolyte replacement for K and Mg. Mild improvement noted but still with episodes of tachycardia and lightheadedness when tried to get up to urinate. He denies chest pain or pressure. He reports he was recently started on a new medication for his blood pressure in addition to amlodipine and propranolol which he had been taking for a long time Hospital course Patient was admitted to the ICU for concern of V. tach, since his admission he remained in sinus rhythm, heart rate between 60 to 70s, hemodynamically stable, his electrolytes were replenished. He did experience any chest pain. Echo showed EF 40%. Decision was made to do cardiac cath. Coronary angiogram was unremarkable, EF was normal above 40% as per Dr. Negron. He recommended event monitor and discharging patient home on 04/28 after his angiogram. I have added metoprolol along magnesium supplementation. Potassium was 3.2, prescribed potassium as well. Patient remained hemodynamically stable throughout his hospitalization. D-dimer 0.4. Covid negative, influenza negative. Kindly see cath report for further details. Right radial artery was accessed. No complications post cardiac cath. Physical Exam Narrative: Euvolemic Very pleasant S1, S2 Abdomen soft Saturating well on room air Nonfocal neuro exam No audible stridor or wheezing EOMI, PERRLA Discharge Data Studies Completed and Pending Completed Studies During Hospitalization Category Date Time Status CT head wo con* [id number] Urgent Cat Scan 04/26/21 18:35 Completed PRESIDENT AND CHIEF COMMERCIAL OFFICER request for service Routine Exams 04/28/21 07:55 Completed XR chest 1V portable [id number] Urgent Exams 04/26/21 18:35 Completed CV. echo complete* [id number] Routine Ultrasound 04/26/21 22:47 Completed Pending at discharge Category Date Time Status Sestamibi Stress Test Request Routine Exams 04/27/21 10:43 Stop Req Complete Blood Count w/Auto AM LABS Lab 04/29/21 04:00 Ordered Comprehensive Metabolic Panel AM LABS Lab 04/29/21 04:00 Ordered Magnesium AM LABS Lab 04/29/21 04:00 Ordered Radiology Impressions Chest X-Ray 04/26/21 18:35 IMPRESSION: 1. No acute cardiopulmonary process. 2. Incidental/nonacute findings are listed in the report. Head CT 04/26/21 18:35 IMPRESSION: 1. No acute abnormality of the brain. 2. Incidental/nonacute findings are listed in the report. Laboratory Results WBC 7.2 10^3/uL (4.0-10.0) 04/28/21 02:17 RBC 4.14 10^6/uL (4.1-5.3) 04/28/21 02:17 Hgb 12.1 g/dL (11.7-16.6) 04/28/21 02:17 Hct 37.9 % (42.0-52.0) L 04/28/21 02:17 MCV 91.5 fl (80-94) 04/28/21 02:17 MCH 29.2 pg (28.0-34.0) 04/28/21 02:17 MCHC 31.9 g/dL (30.0-36.0) 04/28/21 02:17 RDW 14.5 % (12.1-15.1) 04/28/21 02:17 Plt Count 306 10^3/cmm (130-400) 04/28/21 02:17 MPV 10.3 fL (7.4-10.4) 04/28/21 02:17 Neut % (Auto) 57.7 % 04/28/21 02:17 Lymph % (Auto) 25.2 % 04/28/21 02:17 [place] % (Auto) 13.6 % 04/28/21 02:17 Eos % (Auto) 2.5 % 04/28/21 02:17 Baso % (Auto) 0.7 % 04/28/21 02:17 Neut # (Auto) 4.18 10^3/uL (1.8-7.7) 04/28/21 02:17 Lymph # (Auto) 1.8 10^3/uL (0.8-4.8) 04/28/21 02:17 [place] # (Auto) 1.0 10^3/uL (0.2-0.9) H 04/28/21 02:17 Eos # (Auto) 0.2 10^3/uL (0.0-0.8) 04/28/21 02:17 Baso # (Auto) 0.1 10^3/uL (0.0-0.1) 04/28/21 02:17 Nucleated RBC % (auto) 0 % 04/28/21 02:17 Nucleated RBCs # 0.0 /100WBC 04/28/21 02:17 D-Dimer 0.47 ug/mIFEU (0-0.59) 04/26/21 21:29 Sodium 136 mmol/L (136-145) 04/28/21 02:17 Potassium 3.2 mmol/L (3.5-5.1) L 04/28/21 02:17 Chloride 98 mmol/L (98-107) 04/28/21 02:17 Carbon Dioxide 25 mmol/L (22-29) 04/28/21 02:17 Anion Gap 16.2 (5-19) 04/28/21 02:17 BUN 20 mg/dL (8-23) 04/28/21 02:17 Creatinine 0.8 mg/dL (0.7-1.2) 04/28/21 02:17 GFR Calculation 98.0 mL/min (90-130) 04/28/21 02:17 Glucose 92 mg/dL (65-115) 04/28/21 02:17 Calculated Osmolality 284 mOsm/kg (285-295) L 04/28/21 02:17 Calcium 9.4 mg/dL (8.5-10.5) 04/28/21 02:17 Magnesium 2.0 mg/dL (1.7-2.3) 04/28/21 02:17 Total Bilirubin 0.2 mg/dL (0.15-1.2) 04/28/21 02:17 AST 35 U/L (0-40) 04/28/21 02:17 ALT 29 U/L (0-41) 04/28/21 02:17 Alkaline Phosphatase 67 IU/L (40-130) 04/28/21 02:17 Troponin T Baseline 18 ng/L (0-15) H 04/26/21 18:37 Troponin T 120 Minute 19.01 ng/L (0-15) H 04/26/21 20:19 Delta Troponin T 1.01 ABS# (0-10) 04/26/21 20:19 NT-Pro-B Natriuret Pep 45 pg/mL (0-125) 04/26/21 18:37 Total Protein 7.2 g/dL (6.6-8.7) 04/28/21 02:17 Albumin 4.3 g/dL (3.5-5.2) 04/28/21 02:17 Globulin 2.9 g/dL (1.3-4.6) 04/28/21 02:17 Lipase 54 U/L (13-60) 04/26/21 18:37 TSH 0.65 uIU/mL (0.27-4.20) 04/26/21 18:37 Influenza Type A Ag Negative (Negative) 04/26/21 18:45 Influenza Type B Ag Negative (Negative) 04/26/21 18:45 SARS-CoV-2 Ag (Rapid) Negative (Negative) 04/26/21 18:45 Vitals Last Vital Signs Temp 98.3 F 04/28/21 07:51 Pulse 102 H 04/28/21 08:33 Resp 16 04/28/21 08:33 BP 116/95 04/28/21 07:51 Pulse Ox 99 04/28/21 08:33 Discharge Plan Discharge Patient Disposition: Home Condition: Stable Prescriptions: New metoprolol tartrate 25 mg tablet 12.5 mg PO BID Qty: 60 3RF potassium chloride 20 mEq tablet extended release 20 meq PO DAILY Qty: 7 0RF magnesium 200 mg tablet 200 mg PO DAILY Qty: 60 1RF Continued duloxetine 60 mg capsule, delayed rel sprinkle 60 mg PO QAM 0RF amlodipine 10 mg tablet 10 mg PO QAM 0RF atorvastatin 40 mg tablet 40 mg PO BEDTIME 0RF zolpidem 10 mg tablet 10 mg PO BEDTIME 0RF hydrocodone-acetaminophen 10-325 mg tablet 1 tab PO QID PRN (Reason: Pain) 0RF Label Comments: Dr Perrin prescribes leflunomide 20 mg tablet 20 mg PO DAILY Qty: 90 1RF alprazolam 0.5 mg tablet 0.5 mg PO TID PRN (Reason: Anxiety) 0RF pantoprazole 40 mg tablet,delayed release (DR/EC) 40 mg PO BEDTIME 0RF prednisone 5 mg tablet 5 mg PO QAM 0RF albuterol sulfate [ProAir HFA] 90 mcg/actuation HFA aerosol inhaler 1 inh inhalation Q6H PRN (Reason: shortness of breath or wheezing) Qty: 6.7 1RF Xeljanz 5 mg tablet 5 mg PO BID 0RF chlorthalidone 25 mg tablet 25 mg PO DAILY 0RF Acidophilus Capsule 10 mg PO DAILY 0RF Discontinued propranolol 60 mg tablet 60 mg PO DAILY 0RF Referrals: Davis Negron M.D [Physician] - 06/23/21 3:30 pm Brunilda Castanon FNP [Nurse Practitioner] - 05/05/21 9:30 am Dameon Perrin DO [Primary Care Provider] - 05/04/21 10:15 am Discharge Diet: Diabetic Discharge Activity: Increase activity as tolerated Patient Instructions: Metoprolol (By mouth), Potassium Chloride (By mouth) (K-Dur, K-Angelique, K-Tab, Seng Mur), Magnesium Oxide (By mouth) (Mag-Ox 400, [facility]..., Syncope, Supraventricular Tachycardia (DC), Opioid Safety, Post Angiogram Home Care Instructions Activity Restrictions/Additional Instructions: Upon Discharge, Please go to [facility] on the second floor of the [facility] to be fitted with an Event Monitor Discharge Attestations Time Spent in Discharge Care*: less than 30 min Status at Discharge: Cognitive status at discharge: cognitively intact, Behavioral status at discharge: cooperative, Quality Metrics Clinical Quality Measures [ No reported AMI, CVA or VTE this stay] Coding Level of Care Code Acute Chg FW DC note Diagnoses Ventricular tachycardia I47.2 Cardiomyopathy I42.9 Tachyarrhythmia R00.0
--- NOTE | 2021-04-28 11:12 | P.PN_ITS ---
Subjective Subjective: Patient is doing well. He underwent coronary angiogram today that did not reveal significant coronary artery disease. LV systolic function on LV gram was normal. Vitals/I&O/Wt Last Vital Signs Temp 98.3 F 04/28/21 07:51 Pulse 102 H 04/28/21 08:33 Resp 16 04/28/21 08:33 BP 116/95 04/28/21 07:51 Pulse Ox 99 04/28/21 08:33 04/27/21 04/28/21 04/28/21 22:59 06:59 14:59 Intake Total 240 / 840 Output Total 200 / 200 900 / 1100 Balance 40 / 640 -900 / -260 Weight last 48 hrs Weight 211 lb 1.6 oz Weight 212 lb 5 oz Weight 213 lb Physical Exam Narrative: GENERAL: Patient is alert, awake and oriented x3. [] NECK: No jugular vein distension. [] HEENT: No cyanosis. No icterus. No pallor. [] HEART: Regular S1 and S2. No murmur, rub or gallop. [] LUNGS: Clear to auscultate bilaterally. [] ABDOMEN: Soft, nontender and nondistended. Positive bowel sounds. No guarding, rebound or tenderness. [] CENTRAL NERVOUS SYSTEM: Grossly nonfocal. [] EXTREMITIES: Lower extremities with no edema bilaterally. Pulses palpable in the lower extremities, both dorsalis pedis and posterior tibial. [] Data : 04/28/21 02:17 04/28/21 02:17 A&P Assessment and plan (1) Ventricular tachycardia: Status: Acute (2) Cardiomyopathy: Status: Acute (3) Tachyarrhythmia: Status: Acute Plan From the ER patient was reported to have episode of VT. So far on telemetry he has not had another episode of ventricular tachycardia in the ICU. Given his newly found low LV systolic function and ventricular tachycardia episode, patient underwent coronary angiogram. It showed no significant coronary artery disease and LV systolic function was normal on LV gram. Strict blood pressure control. Outpatient event monitor to rule out further arrhythmias Thank you for involving us with care of this patient. Patient is stable for discharge from cardiology standpoint. Please call with questions. Attestations Medical Necessity Statement*: Care expected to cross 2 midnights Coding Level of Care Code Acute Engineering Scientist for Adrienne Webster Diagnoses Ventricular tachycardia I47.2 Cardiomyopathy I42.9 Tachyarrhythmia R00.0
--- NOTE | 2021-04-28 13:40 | PC.NURSE ---
tr band slowly deflated and eventually removed at 1300.right hand remains warm to touch and with brisk capillary refill.no hematoma noted.palpable radial pulse noted.site dressed with 2x2 gauze and secured with biocclusive drsg.instructed in activity restrictions,and instructed to notify staff for any bleeding,pain,numbness..or for any concerns at all.pt verb understanding of instructions.
[2021-04-28] MEDS: metoprolol tartrate 25 mg Tablet PO (14:01)
--- NOTE | 2021-04-28 14:26 | PC.NURSE ---
discharge instructions given and explained.pt and spouse verb understanding of instructions.discharged via w/c to [facility] to have event monitor placed,at 1400
== END 2021-04-28 14:00 | disposition home or self-care (01) ==
LOC: ER 21:37 → ICU 21:39 → CSU 04-27 16:32
PROVIDERS: Emergency Medicine; Internal Medicine; Admitting Provider Internal Medicine; Emergency Provider Emergency Medicine; PCP Internal Medicine; Visit Provider Internal Medicine
DX: I47.2 Ventricular tachycardia (principal); I42.9 Cardiomyopathy, unspecified; L40.59 Other psoriatic arthropathy; I10 Essential (primary) hypertension; I25.10 Atherosclerotic heart disease of native coronary artery without angina pectoris; L40.9 Psoriasis, unspecified; M79.7 Fibromyalgia; Z79.899 Other long term (current) drug therapy
CPT/HCPCS: 36415; 70450; 71045; 80053; 83690; 83735; 83880; 84132; 84443; 84484; 85025; 85378; 87426; 87804; 93005; 93306; 93452; 93458; 96365; 96367; 96372; 99285; C1769; C1887; C1894; G0378; J1644; J1650; J2250; J3010; J3475; J3480; J3490; J7512; Q9967

== ENCOUNTER → 2021-04-28 14:24 | Outpatient (BNVA) | payer MEDICARE, SELFPAY | PROVIDERS: PCP Internal Medicine; Visit Provider Internal Medicine | DX: I47.2 Ventricular tachycardia (principal) ==

== ENCOUNTER → 2021-05-09 10:11 | Outpatient (BNVA) | payer MEDICARE, SELFPAY | PROVIDERS: PCP Internal Medicine; Visit Provider Nurse Practitioner Family | DX: I47.2 Ventricular tachycardia (principal) | CPT/HCPCS: 80048; 99213; 99214 ==

== ENCOUNTER 2021-06-04 13:22 | Emergency (ER) | payer MEDICARE, SELFPAY ==
--- NOTE | 2021-06-04 13:32 | XRR_ITS ---
PROCEDURE INFORMATION: Exam: XR Right Hip Exam date and time: 06/04/2021 1:49 PM Age: 60 years old Clinical indication: Injury or trauma; Blunt trauma (contusions or hematomas); Right; Patient HX: C/O worsening R hip pain after ground level fall 3 days ago TECHNIQUE: Imaging protocol: XR Right hip. Views: 1 view hip with pelvis when performed. COMPARISON: CR Lumbar Spine 2-3 views* [id number] 04/17/2018 11:46 AM FINDINGS: Bones/joints: Unremarkable. No acute fracture or dislocation. Soft tissues: Unremarkable. XR/XR hip RT 2-3V wo/w pel* [id number] IMPRESSION: No acute findings.
[2021-06-04 13:34] VITALS: BP 126/76; PULSE 78; RESP 20; TEMP 36.7; O2SAT 94; BMI 37.8
--- NOTE | 2021-06-04 13:35 | W.ED.FALL ---
HPI - Fall General: Chief Complaint: Fall Stated Complaint: R HIP PAIN Time Seen by Provider: 06/04/21 13:27 Source: patient Mode of arrival: EMS Limitations: no limitations History of Present Illness: This patient presents to our emergency department because of increasing right hip and right pelvis pain. He apparently had a slip and ground-level fall on Sunday. He states that he was carrying a pot and fell awkwardly predominantly landing on his right hip and right side. He states that this occurred due to a slick spot on his back deck. He did not hit his head or suffer loss of consciousness. He states that he was able to get up and engage in most of his activities other than having residual soreness however over the last 2 days in particular today has had increasing pain and discomfort when he attempted to move his right hip. He denies any weakness or numbness in that extremity. He denies any other injury at this time. He is adamant that it was not a syncopal episode. He states he was fully alert awake and aware had no palpitations chest pain shortness of breath etc. MD complaint: fall Fall from: standing Fall witnessed: no Place fall occurred: home Loss of consciousness: None Context: tripped/slipped Location of injury: pelvis Location of injury - extremities: Right: thigh Severity: moderate Quality: aching Associated symptoms-after fall: Reports no associated symptoms; Denies abdominal pain, chest pain, headache(s) or neck pain Review of Systems Const: Denies: fever(s), chills or body aches Eyes: Denies: change in vision ENMT: Denies: throat pain or odynophagia Card: Denies: chest pain, palpitations, syncope, pre-syncope or dyspnea on exertion Resp: Denies: dyspnea, productive cough or non-productive cough GI: Denies: abdominal pain, nausea, vomiting or hematemesis : Denies: flank pain, difficulty urinating or dysuria Musc: Reports: extremity pain and joint pain; Denies: neck pain or back pain Skin/Breast: Denies: rash or pruritus Neuro: Denies: headache(s), numbness in extremities, weakness in extremities, sensory changes or lack of coordination Endo: Denies: polyuria or polydipsia Neri/Lymph: Denies: easy bruising or easy bleeding PFS ED PFSH: Medical History Cardiomyopathy Cervical spondylosis COPD (chronic obstructive pulmonary disease) Current chronic use of systemic steroids Dyspnea Fever Fibromyalgia GERD (gastroesophageal reflux disease) High risk medication use Hypoxia Immunization counseling Immunosuppression Lumbosacral spondylosis with radiculopathy Posterior tibial tendon dysfunction, bilateral Psoriasis Psoriatic arthritis Surgical History History of appendectomy History of ear, nose, and throat (ENT) surgery History of repair of anterior cruciate ligament of right knee Hx of hemorrhoidectomy Family History Denies family history of Diabetes Cancer Stroke Social History Smoking and tobacco status: never smoked Alcohol intake: never Lives independently: No Household members: spouse Marital status: Current occupational status: disabled History of recent travel: No Physical Exam Narrative: EXAM NARRATIVE: Patient is alert no acute distress Const: COMMON NORMALS: no acute distress, average body habitus, patient oriented x3 and alert HENMT: COMMON NORMALS: normocephalic, atraumatic, moist oral mucous membranes and oropharynx normal HEAD & SCALP: normocephalic and atraumatic Eye: COMMON NORMALS: Equal, round and reactive pupils present, EOMs intact bilaterally and conjunctivae normal CONJUNCTIVA: Yes conjunctivae normal PUPIL: Yes Equal, round and reactive pupils present Neck/C-Spine: COMMON NORMALS: full ROM, no JVD, Thyroid normal and No carotid bruits THYROID: Thyroid normal CERVICAL SPINE: Yes cervical ROM normal, No pain with cervical ROM, No Cervical spine tenderness and No step off deformity Lymph: LYMPHATIC: no lymphadenopathy noted Chest: COMMONS NORMALS: normal inspection of the chest and normal palpation of entire chest wall Resp: COMMON NORMALS: normal respiratory effort, No retractions, No use of accessory muscles and clear to auscultation bilaterally AUSCULTATION: clear to auscultation bilaterally Cardio: COMMON NORMALS: no JVD, regular rate, regular rhythm, No murmurs present (Cardio) and Peripheral pulses 2+ throughout RATE: regular rate RHYTHM: regular rhythm PERIPHERAL PULSES: Peripheral pulses 2+ throughout GI: COMMON NORMALS: Normal to inspection, nondistended, normoactive bowel sounds present, Soft to palpation and non-tender PALPATION: Yes Soft to palpation : COMMON NORMALS: Yes no CVA tenderness BLADDER/KIDNEY EXAM: Yes no CVA tenderness Back/Pelvis: COMMON NORMALS: no CVA tenderness LUMBAR SPINE/LOWER BACK: No lumbar spinal tenderness and No paraspinal muscle tenderness PELVIS: Yes no pain with anterior-posterior compression, Yes no pain with lateral compression and No tenderness over symphysis pubis Extremity: GENERAL: Yes normal exam except as noted RIGHT LOWER EXTREMITY: Yes hip joint Right hip: Yes palpation, No knee joint and No foot & digits Neuro: COMMON NORMALS: patient oriented x3, moves all extremities, no focal motor deficits and no sensory deficits noted SENSORIUM/ORIENTATION: Yes alert SPEECH: speech normal Course Reevaluation(s): Reevaluation #1: Plain films of hip and pelvis are reassuring. He was then reexamined to include rotating him so that we can get a better back exam now that we know his hip and pelvis are stable. He does have some midline tenderness in the lower lumbar region but he has some tenderness over the right posterior superior iliac spine region as well. Movement at the hip does not exacerbate his symptoms. I think it is reasonable for us to get a set of plain lumbar films as well now that we can safely move him to ensure that there is no other issues at play. Time: 17:09 Reevaluation #2: CT lumbar spine is reassuring for no evidence of acute process. He does have significant chronic findings as outlined in the radiology report. His findings today are consistent with soft tissue injury spasm and probably some sacroiliac dysfunction as result of his fall. I discussed expected course with both he and his spouse and treatment recommendations. Vital Signs: Vital signs: Vital Signs Temperature 98.0 F 06/04/21 13:34 Pulse Rate 65 06/04/21 14:06 Respiratory Rate 16 06/04/21 14:06 Blood Pressure 127/89 06/04/21 14:06 Pulse Oximetry 91 06/04/21 14:06 MDM - Fall Medical Decision Making Soft tissuePatient with a ground-level fall 3 days prior to arrival with increasing right hip and lower back pain. He was evaluated and found to have some areas of soft tissue as well as bony tenderness and therefore plain films and CT scan was obtained. These are all reassuring for no evidence of acute findings. Consistent with 2 and sacroiliac dysfunction due to his ground-level fall without any evidence of fracture or other ongoing emergency medical condition. He will be discharged on physical modalities modalities of ice massage, continuing activities and stretching as well as a muscle relaxant. Return precautions were also discussed with both he and spouse. Lab Data Radiology Impressions Hip/Pelvis X-Ray 06/04/21 13:32 IMPRESSION: No acute findings. Lumbar Spine CT 06/04/21 15:22 IMPRESSION: No acute lumbar spine fracture subluxation. Other findings as above. Discharge Plan Discharge Patient Disposition: Home Clinical Impression: Fall from ground level, Back pain, lumbosacral Condition: Stable Prescriptions: New carisoprodol [Soma] 350 mg tablet 350 mg PO BID PRN (Reason: muscle pain) Qty: 20 0RF No Action duloxetine 60 mg capsule, delayed rel sprinkle 60 mg PO QAM 0RF amlodipine 10 mg tablet 10 mg PO QAM 0RF atorvastatin 40 mg tablet 40 mg PO BEDTIME 0RF zolpidem 10 mg tablet 10 mg PO BEDTIME 0RF hydrocodone-acetaminophen 10-325 mg tablet 1 tab PO QID PRN (Reason: Pain) 0RF Label Comments: Dr Perrin prescribes leflunomide 20 mg tablet 20 mg PO DAILY Qty: 90 1RF Xeljanz 5 mg tablet 5 mg PO BID Qty: 30 2RF alprazolam 0.5 mg tablet 0.5 mg PO TID PRN (Reason: Anxiety) 0RF pantoprazole 40 mg tablet,delayed release (/EC) 40 mg PO BEDTIME 0RF prednisone 5 mg tablet 5 mg PO QAM 0RF albuterol sulfate [ProAir HFA] 90 mcg/actuation HFA aerosol inhaler 1 inh inhalation Q6H PRN (Reason: shortness of breath or wheezing) Qty: 6.7 1RF chlorthalidone 25 mg tablet 25 mg PO DAILY 0RF Acidophilus Capsule 10 mg PO DAILY 0RF metoprolol tartrate 25 mg tablet 12.5 mg PO BID Qty: 60 3RF potassium chloride 20 mEq tablet extended release 20 meq PO DAILY Qty: 7 0RF magnesium 200 mg tablet 200 mg PO DAILY Qty: 60 1RF Discharge Orders: Discharge ED (Routine); Ordered 06/04/21 Ordered By: Francisco Morelos Referrals: Dameon Perrin DO [Primary Care Provider] - Discharge Diet: Usual diet Discharge Activity: Increase activity as tolerated Patient Instructions: Opioid Safety Activity Restrictions/Additional Instructions: Continue to use cool pack on your lower back for 10 to 15 minutes 3-4 times daily to help with your pain. Continue to do light stretching activities and also try to attempt to resume activities of daily living as you tolerate them. If you have increasing pain, loss of bowel or bladder control, weakness, any other concerns return to this or the nearest emergency department for reevaluation. Coding Level of Care Code ED Office Machinery Or Equipment Installer for Adrienne Fwwilton Exam Comprehensive
[2021-06-04 14:06] VITALS: BP 127/89; PULSE 65; RESP 16; O2SAT 91
--- NOTE | 2021-06-04 15:22 | CTR_ITS ---
PROCEDURE INFORMATION: Exam: CT Lumbar Spine Without Contrast Exam date and time: 06/04/2021 3:44 PM Age: 60 years old Clinical indication: Injury or trauma; Blunt trauma (contusions or hematomas); Patient HX: C/O lbp, R hip pain after fall 3 days ago; Additional info: Fall with midline lumbar tenderenss TECHNIQUE: Imaging protocol: Computed tomography images of the lumbar spine without contrast. Radiation optimization: All CT scans at this facility use at least one of these dose optimization techniques: automated exposure control; mA and/or kV adjustment per patient size (includes targeted exams where dose is matched to clinical indication); or iterative reconstruction. COMPARISON: CR Lumbar Spine 2-3 views* [id number] 04/17/2018 11:46 AM RADIATION DOSE METRICS: Total DLP (mGy-cm): 2031. FINDINGS: Vertebrae: Multilevel endplate osteophytes and facet arthropathy are noted. No acute spine fracture or subluxation. L1-L2: No significant disc protrusion. No severe spinal canal stenosis. No significant neural foraminal narrowing. L2-L3: No significant disc protrusion. No severe spinal canal stenosis. No significant neural foraminal narrowing. L3-L4: No significant disc protrusion. No severe spinal canal stenosis. No significant neural foraminal narrowing. L4-L5: Mild disc space narrowing and vacuum phenomenon. No significant central disc protrusion. No severe spinal canal stenosis. There is far lateral disc bulge on the right. Combination of disc osteophyte and facet hypertrophic elements may result in encroachment on the exiting nerve root. L5-S1: Moderate Central disc protrusion measuring about 7 mm with moderate central spinal canal stenosis. No significant neural foraminal narrowing. Soft tissues: Unremarkable. CT/CT lumbar spine wo con* [id number] IMPRESSION: No acute lumbar spine fracture subluxation. Other findings as above.
[2021-06-04 17:54] VITALS: BP 113/72; PULSE 70; RESP 14; O2SAT 92
== END 2021-06-04 17:51 | disposition home or self-care (01) ==
PROVIDERS: Emergency Provider Emergency Medicine; PCP Internal Medicine
DX: M25.551 Pain in right hip (principal); M54.50 Low back pain, unspecified; W01.0XXA Fall on same level from slipping, tripping and stumbling without subsequent striking against object, initial encounter
CPT/HCPCS: 72131; 73502; 99283

== ENCOUNTER 2021-06-05 10:38 | Emergency (ER) | payer MEDICARE, SELFPAY ==
[2021-06-05 10:58] VITALS: BP 146/82; PULSE 68; RESP 18; O2SAT 98; BMI 38.2
--- NOTE | 2021-06-05 11:01 | W.ED.BACK ---
HPI - Back Pain/Injury General: Chief Complaint: General Medical Stated Complaint: RIGHT HIP PAIN S/P FALL Time Seen by Provider: 06/05/21 10:39 History of Present Illness: 60-year-old male presents with right hip/low back pain from a fall 4 days ago. He was seen yesterday with a negative lumbar CT along with a negative hip x-ray. Patient was given hydrocodone 11/14/2024 and Soma yesterday. patient presents due to severe pain in that area today. Family reports that he was laying on the floor in pain and would not get up. Patient reports he was on the toilet and had difficulty getting up due to the pain and discomfort. Patient states that he needs something stronger for pain medicine. He reports no new fall or new injury. Patient denies any numbness, tingling, bowel or bladder issues. Family reports that they need something done because they cannot take care of him at home. Associated symptoms: Deny abdominal pain, chills, fever(s), nausea or vomiting Review of Systems Const: Denies: fever(s) or chills Card: Denies: chest pain or palpitations Resp: Denies: dyspnea or productive cough GI: Denies: abdominal pain, nausea or vomiting : Denies: flank pain or difficulty urinating Musc: Reports: other (Please see HPI) Skin/Breast: Denies: rash Neuro: Denies: headache(s), numbness in extremities or weakness in extremities PFSH ED PFSH: Medical History Cardiomyopathy Cervical spondylosis COPD (chronic obstructive pulmonary disease) Current chronic use of systemic steroids Dyspnea Fever Fibromyalgia GERD (gastroesophageal reflux disease) High risk medication use Hypoxia Immunization counseling Immunosuppression Lumbosacral spondylosis with radiculopathy Posterior tibial tendon dysfunction, bilateral Psoriasis Psoriatic arthritis Surgical History History of appendectomy History of ear, nose, and throat (ENT) surgery History of repair of anterior cruciate ligament of right knee Hx of hemorrhoidectomy Family History Denies family history of Diabetes Cancer Stroke Social History Smoking and tobacco status: never smoked Alcohol intake: never Lives independently: No Household members: spouse Marital status: Current occupational status: disabled History of recent travel: No Physical Exam Const: COMMON NORMALS: patient oriented x3 GENERAL APPEARANCE: disheveled and appears older than stated age HENMT: COMMON NORMALS: normocephalic and atraumatic HEAD & SCALP: normocephalic and atraumatic Resp: COMMON NORMALS: normal respiratory effort and No retractions Cardio: COMMON NORMALS: regular rate, regular rhythm and Peripheral pulses 2+ throughout RATE: regular rate RHYTHM: regular rhythm PERIPHERAL PULSES: Peripheral pulses 2+ throughout GI: INSPECTION: No abdominal distension and Yes central obesity Neuro: COMMON NORMALS: patient oriented x3 and no focal motor deficits Skin: COMMON NORMALS: no rashes or lesions noted GENERAL SKIN EXAM: no rashes or lesions noted Course Vital Signs: Vital signs: Vital Signs Pulse Rate 68 06/05/21 10:58 Respiratory Rate 18 06/05/21 10:58 Blood Pressure 146/82 06/05/21 10:58 Pulse Oximetry 98 06/05/21 10:58 MDM - Back Pain/Injury Medical Decision Making Patient CT and x-ray from yesterday were reviewed and shows no acute pathology. Patient was given some ketamine and Norflex for continued complaint of pain. I went ahead and check labs. Patient does have several labs that would be consistent with may be some mild dehydration or medication reaction along with an elevated CPK indicating some mild muscle injury. Patient is given a liter of IV fluids oral potassium. This into the ketamine and Norflex. Patient's family reports that he has fibromyalgia and currently takes hydrocodone 11/14/2024 for his arthritis. I suspect that this is giving him issues. Control was pursued with a high dose of hydrocodone is already on. Discussed with him the need for the primary care provider as there is nothing that would be indication for admission at this time especially in light of abnormal CT yesterday. That at this time I do not feel there is any indication to repeat it. Discussed with him that he can continue his current pain medicine, follow-up tomorrow with his primary care provider since he already has an appointment scheduled to consider physical therapy and possible outpatient MRI and orthopedic consult. Patient will be given a small dose of fentanyl just prior to discharge to help with his pain to get home and take his home pain medications. Patient was stable upon discharge Labs : 06/05/21 10:50 04/24/22 10:50 Laboratory Results WBC 8.4 10^3/uL (4.0-10.0) 06/05/21 10:50 RBC 4.13 10^6/uL (4.1-5.3) 06/05/21 10:50 Hgb 11.9 g/dL (11.7-16.6) 06/05/21 10:50 Hct 37.1 % (42.0-52.0) L 06/05/21 10:50 MCV 89.8 fl (80-94) 06/05/21 10:50 MCH 28.8 pg (28.0-34.0) 06/05/21 10:50 MCHC 32.1 g/dL (30.0-36.0) 06/05/21 10:50 RDW 14.7 % (12.1-15.1) 06/05/21 10:50 Plt Count 417 10^3/cmm (130-400) H 06/05/21 10:50 MPV 9.3 fL (7.4-10.4) 06/05/21 10:50 Neut % (Auto) 64.9 % 06/05/21 10:50 Lymph % (Auto) 23.5 % 06/05/21 10:50 [place] % (Auto) 7.2 % 06/05/21 10:50 Eos % (Auto) 3.5 % 06/05/21 10:50 Baso % (Auto) 0.5 % 06/05/21 10:50 Neut # (Auto) 5.44 10^3/uL (1.8-7.7) 06/05/21 10:50 Lymph # (Auto) 2.0 10^3/uL (0.8-4.8) 06/05/21 10:50 [place] # (Auto) 0.6 10^3/uL (0.2-0.9) 06/05/21 10:50 Eos # (Auto) 0.3 10^3/uL (0.0-0.8) 06/05/21 10:50 Baso # (Auto) 0.0 10^3/uL (0.0-0.1) 06/05/21 10:50 Nucleated RBC % (auto) 0 % 06/05/21 10:50 Nucleated RBCs # 0.0 /100WBC 06/05/21 10:50 Sodium 130 mmol/L (136-145) L 06/05/21 10:50 Potassium 3.3 mmol/L (3.5-5.1) L 06/05/21 10:50 Chloride 90 mmol/L (98-107) L 06/05/21 10:50 Carbon Dioxide 26 mmol/L (22-29) 06/05/21 10:50 Anion Gap 17.3 (5-19) 06/05/21 10:50 BUN 13 mg/dL (8-23) 06/05/21 10:50 Creatinine 0.9 mg/dL (0.7-1.2) 06/05/21 10:50 GFR Calculation 85.5 mL/min (90-130) L 06/05/21 10:50 Glucose 132 mg/dL (65-115) H 06/05/21 10:50 Calculated Osmolality 272 mOsm/kg (285-295) L 06/05/21 10:50 Lactate 2.4 mmol/L (0.5-2.2) H 06/05/21 13:35 Calcium 9.9 mg/dL (8.5-10.5) 06/05/21 10:50 Total Bilirubin 0.4 mg/dL (0.15-1.2) 06/05/21 10:50 AST 35 U/L (0-40) 06/05/21 10:50 ALT 35 U/L (0-41) 06/05/21 10:50 Alkaline Phosphatase 68 IU/L (40-130) 06/05/21 10:50 Creatine Kinase 397 U/L (39-308) H* 06/05/21 10:50 Total Protein 7.9 g/dL (6.6-8.7) 06/05/21 10:50 Albumin 4.5 g/dL (3.5-5.2) 06/05/21 10:50 Globulin 3.4 g/dL (1.3-4.6) 06/05/21 10:50 Urine Color Yellow (Yellow) 06/05/21 13:35 Urine Appearance Clear (CLEAR) 06/05/21 13:35 Urine pH 8 (5-7) H 06/05/21 13:35 Ur Specific [place] 1.015 (1.005-1.030) 06/05/21 13:35 Urine Protein Neg (Negative) 06/05/21 13:35 Urine Glucose (UA) Norm (Normal) 06/05/21 13:35 Urine Ketones Negative (Negative) 06/05/21 13:35 Urine Blood Neg (Negative) 06/05/21 13:35 Urine Nitrate Negative (Negative) 06/05/21 13:35 Urine Bilirubin Neg (Negative) 06/05/21 13:35 Prot Sulfosalicylic Acd Negative (Negative) 06/05/21 13:35 Urine Urobilinogen Norm mg/dL (Negative) 06/05/21 13:35 Ur Leukocyte Esterase Negative (Negative) 06/05/21 13:35 Discharge Plan Discharge Patient Disposition: Home Clinical Impression: Back pain, lumbosacral, Fall from ground level, Arthralgia of hip, right Condition: Stable Prescriptions: No Action duloxetine 60 mg capsule, delayed rel sprinkle 60 mg PO QAM 0RF amlodipine 10 mg tablet 10 mg PO QAM 0RF atorvastatin 40 mg tablet 40 mg PO BEDTIME 0RF zolpidem 10 mg tablet 10 mg PO BEDTIME 0RF hydrocodone-acetaminophen 10-325 mg tablet 1 tab PO QID PRN (Reason: Pain) 0RF Label Comments: Dr Perrin prescribes leflunomide 20 mg tablet 20 mg PO DAILY Qty: 90 1RF Xeljanz 5 mg tablet 5 mg PO BID Qty: 30 2RF alprazolam 0.5 mg tablet 0.5 mg PO TID PRN (Reason: Anxiety) 0RF pantoprazole 40 mg tablet,delayed release (/EC) 40 mg PO BEDTIME 0RF prednisone 5 mg tablet 5 mg PO QAM 0RF albuterol sulfate [ProAir HFA] 90 mcg/actuation HFA aerosol inhaler 1 inh inhalation Q6H PRN (Reason: shortness of breath or wheezing) Qty: 6.7 1RF chlorthalidone 25 mg tablet 25 mg PO DAILY 0RF Acidophilus Capsule 10 mg PO DAILY 0RF metoprolol tartrate 25 mg tablet 12.5 mg PO BID Qty: 60 3RF potassium chloride 20 mEq tablet extended release 20 meq PO DAILY Qty: 7 0RF magnesium 200 mg tablet 200 mg PO DAILY Qty: 60 1RF Soma 350 mg tablet 350 mg PO BID PRN (Reason: muscle pain) Qty: 20 0RF Discharge Orders: Discharge ED (Routine); Ordered 06/05/21 Ordered By: Nathen Benton Referrals: Dameon Perrin DO [Primary Care Provider] - Discharge Diet: Usual diet Discharge Activity: Increase activity as tolerated Patient Instructions: Hip Contusion (ED), Opioid Safety Activity Restrictions/Additional Instructions: Follow-up with your primary care provider tomorrow for further outpatient evaluation with possible MRI or orthopedic consult 4% topical lidocaine with menthol use as directed on package Voltaren/diclofenac cream use as directed on package Coding Level of Care Code ED Residential Manager for Chg Fwd Exam Detailed
[2021-06-05] MEDS: sodium chloride 0.9% 100 mL Bag IVP (12:00)
[2021-06-05 13:44] LABS: Basophils % 0.5 %; Eosinophils # 0.3 10^3/uL (0.0-0.8); Eosinophils % 3.5 %; Hematocrit 37.1 % (42.0-52.0); Hemoglobin 11.9 g/dL (11.7-16.6); Lymphocytes % 23.5 %; Mean Corpuscular HGB Conc 32.1 g/dL (30.0-36.0); Mean Corpuscular Hemoglobin 28.8 pg (28.0-34.0); Mean Corpuscular Volume 89.8 fl (80-94); Mean Platelet Volume 9.3 fL (7.4-10.4); Monocytes # 0.6 10^3/uL (0.2-0.9); Monocytes % 7.2 %; Neutrophils # 5.44 10^3/uL (1.8-7.7); Neutrophils % 64.9 %; Nucleated Red Blood Cells % 0 %; Platelet Count 417 10^3/cmm (130-400); Red Blood Count 4.13 10^6/uL (4.1-5.3); Red Cell Distribution Width 14.7 % (12.1-15.1); White Blood Count 8.4 10^3/uL (4.0-10.0)
[2021-06-05 13:54] LABS: Add Urine Microscopic? NO; Charge for UA Resulting for Rev
[2021-06-05 13:59] LABS: Alanine Aminotransferase 35 U/L (0-41); Albumin Level 4.5 g/dL (3.5-5.2); Alkaline Phosphatase 68 IU/L (40-130); Anion Gap 17.3 (5-19); Aspartate Amino Transferase 35 U/L (0-40); Blood Urea Nitrogen 13 mg/dL (8-23); Calcium 9.9 mg/dL (8.5-10.5); Carbon Dioxide 26 mmol/L (22-29); Chloride 90 mmol/L (98-107); Globulin 3.4 g/dL (1.3-4.6); Glomerular Filtration Rate 85.5 mL/min (90-130); Glucose 132 mg/dL (65-115); Osmolality Calculated 272 mOsm/kg (285-295); Potassium 3.3 mmol/L (3.5-5.1); Sodium 130 mmol/L (136-145); Total Bilirubin 0.4 mg/dL (0.15-1.2); Total Protein 7.9 g/dL (6.6-8.7)
[2021-06-05 14:06] LABS: Creatine Phosphokinase 397 U/L (39-308)
[2021-06-05 14:19] LABS: Bilirubin Urine Neg (Negative); Blood Urine Neg (Negative); Glucose Urine UA Norm (Normal); Ketones Urine Negative (Negative); Leukocyte Esterase Urine Negative (Negative); Nitrate Urine Negative (Negative); Protein Urine Neg (Negative); Specific Gravity, Urine 1.015 (1.005-1.030); Sulfosalicylic Acid Urine Negative (Negative); Urine Appearance Clear (CLEAR); Urine Color Yellow (Yellow); Urobilinogen Urine Norm (Negative); pH Urine 8 (5-7)
[2021-06-05 14:21] LABS: Lactate (Lactic Acid level) 2.4 mmol/L (0.5-2.2)
[2021-06-05] MEDS: orphenadrine 30 mg/mL Inj 2 mL 60 MG IVP (14:52)
[2021-06-05] MEDS: potassium chloride ER 20 mEq Tablet 40 MEQ PO (14:58)
[2021-06-05] MEDS: sodium chloride 0.9% 1,000 ML 999 ML IV (14:58)
[2021-06-05 16:40] VITALS: RESP 14
[2021-06-05] MEDS: fentaNYL 50 mcg/mL INJ 2mL 100 MCG IVP (16:40)
[2021-06-05 16:55] VITALS: BP 149/99; PULSE 94; RESP 14; TEMP 36.6; O2SAT 97
[2021-06-05 16:57] VITALS: BP 149/99; PULSE 94; RESP 14; TEMP 36.6; O2SAT 97
== END 2021-06-05 16:58 | disposition home or self-care (01) ==
PROVIDERS: Emergency Provider Student in an Organized Health Care Education/Training Program; PCP Internal Medicine
DX: M25.551 Pain in right hip (principal); M54.50 Low back pain, unspecified; W18.30XA Fall on same level, unspecified, initial encounter; M79.7 Fibromyalgia; R74.8 Abnormal levels of other serum enzymes; R79.9 Abnormal finding of blood chemistry, unspecified; Z79.891 Long term (current) use of opiate analgesic
CPT/HCPCS: 80053; 81003; 82550; 83605; 85025; 96361; 96374; 96375; 99284; J2360; J3010; J3490; J7030

== ENCOUNTER 2021-07-08 10:22 | Outpatient (CLI) | payer MEDICARE, SELFPAY ==
--- NOTE | 2021-07-08 10:43 | USCV_ITS ---
Jame Ross Age: 60 Gender: M : 1960 Exam Date: 07/08/2021 10:51 Ordering Phys: Dameon Perrin DO Technologist: Fabian Montiel Rehabilitation Services Director Exam Location: [facility] – [place] Indication: claudication RIGHT LEFT Brachial 121.00 mmHg Brachial 121.00 mmHg Pressure (mmHg) Waveform Pressure (mmHg) Waveform 157.00 HEALTH EDUCATION DIRECTOR 157.00 153.00 DPA 142.00 1.26 Ankle/Brachial Index 1.17 115.00 Pre-Exercise Toe Pressure 94.00 0.95 Pre-Exercise Toe/Brachial Index 0.78 FINDINGS Normal resting ABIs bilaterally Normal resting TBIs bilaterally CONCLUSIONS No evidence of any significant arterial obstruction, based on the above findings. Dr Hilton Fontanez MD [facility] (Electronically Signed) Final Date: 08 Jul 2021 14:48 S
== END 2021-07-08 10:23 | disposition home or self-care (01) ==
PROVIDERS: PCP Internal Medicine; Visit Provider Internal Medicine
DX: I73.9 Peripheral vascular disease, unspecified (principal)
CPT/HCPCS: 93922

== ENCOUNTER → 2021-07-18 14:45 | Outpatient (BNVA) | payer MEDICARE, SELFPAY | PROVIDERS: PCP Internal Medicine; Visit Provider Internal Medicine Rheumatology | DX: L40.59 Other psoriatic arthropathy (principal); Z79.899 Other long term (current) drug therapy; Z71.89 Other specified counseling; K21.9 Gastro-esophageal reflux disease without esophagitis | CPT/HCPCS: 99214 ==

== ENCOUNTER 2021-11-10 08:23 | Inpatient (IN) | payer MEDICARE, SELFPAY ==
[2021-11-10] VITALS (17 sets, daily range): BP systolic 98–180; BP diastolic 63–122; PULSE 76–115; RESP 15–22; TEMP 36.6–37; O2SAT 90–99; BMI 34.9
--- NOTE | 2021-11-10 08:29 | ECG_ITS ---
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 Measurements Intervals [place] Rate: 104 P: 48 DC: 150 QRS: -5 QRSD: 97 T: 32 QT: 362 QTc: 477 Interpretive Statements SINUS TACHYCARDIA WITH FREQUENT SUPRAVENTRICULAR PREMATURE COMPLEXES ABNORMAL RHYTHM ECG Compared to ECG 04/26/2021 20:52:34 Atrial premature complex(es) no longer present Electronically Signed On 11-10-2021 20:35:24 CDT by Hilton Fontanez M.D. [id number]
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
[2021-11-10 09:02] LABS: Basophils # 0.1 10^3/uL (0.0-0.1); Basophils % 0.7 %; Eosinophils # 0.5 10^3/uL (0.0-0.8); Eosinophils % 6.5 %; Hematocrit 39.4 % (42.0-52.0); Hemoglobin 12.3 g/dL (11.7-16.6); Lymphocytes # 1.6 10^3/uL (0.8-4.8); Mean Corpuscular HGB Conc 31.2 g/dL (30.0-36.0); Mean Corpuscular Hemoglobin 29.2 pg (28.0-34.0); Mean Corpuscular Volume 93.6 fl (80-94); Mean Platelet Volume 9.7 fL (7.4-10.4); Monocytes # 1.2 10^3/uL (0.2-0.9); Neutrophils # 3.92 10^3/uL (1.8-7.7); Neutrophils % 54.7 %; Nucleated Red Blood Cells % 0 %; Platelet Count 321 10^3/cmm (130-400); Red Blood Count 4.21 10^6/uL (4.1-5.3); Red Cell Distribution Width 15.6 % (12.1-15.1); White Blood Count 7.2 10^3/uL (4.0-10.0)
--- NOTE | 2021-11-10 09:17 | PC.PHAR ---
PT UNABLE TO VERIFY MEDICATIONS DUE TO AMS- UNABLE TO CONTACT PT - CALLED THREE PHARMACIES TO VERIFY LAST FILLED AND DAY SUPPLY- MEDICATIONS VERIFIED USING EXTERNAL MED LIST LAST FILLED/DS
[2021-11-10 09:31] LABS: Acetaminophen < 5.0 ug/mL (10-30); Alanine Aminotransferase 37 U/L (0-41); Albumin Level 4.4 g/dL (3.5-5.2); Alcohol Level < 10 mg/dL (0-10); Alkaline Phosphatase 76 U/L (40-130); Anion Gap 17.4 (5-19); Aspartate Amino Transferase 45 U/L (0-40); Blood Urea Nitrogen 9 mg/dL (8-23); Calcium 9.4 mg/dL (8.5-10.5); Carbon Dioxide 24 mmol/L (22-29); Chloride 99 mmol/L (98-107); Globulin 2.8 g/dL (1.3-4.6); Glomerular Filtration Rate 85.2 mL/min (90-130); Glucose 139 mg/dL (65-115); Osmolality Calculated 285 mOsm/kg (285-295); Potassium 3.4 mmol/L (3.5-5.1); Salicylate 1.7 mg/dL (3-10); Sodium 137 mmol/L (136-145); Total Bilirubin 0.6 mg/dL (0.15-1.2); Total Protein 7.2 g/dL (6.6-8.7)
--- NOTE | 2021-11-10 09:55 | CT_ITS ---
WS: [id number] CT HEAD NONCONTRAST HISTORY: delirium TECHNIQUE: Contiguous axial imaging performed through the brain in 2.5 mm imaging. Bone and soft tiss ue windows. Sagittal and coronal reformats reviewed. All CT scans at [facility] use at least one of these dose optimization techniques: automated exposure control; mA and/or kV adjustment per pa tient size (includes targeted exams where dose is matched to clinical indication); or iterative recon struction. DLP: 1153.28 mGy.cm COMPARISON: 04/26/2021 No acute intracranial hemorrhage, midline shift or mass effect. No atrophy or prior infarcts or herniation. Ventricles: Normal size with no hydrocephalus. Paranasal sinuses: As visualized are clear. Mastoid air cells: Well pneumatized. Calvarium and scalp: Skull is intact with no soft tissue edema or swelling. CT/CT head wo con* [id number] IMPRESSION: Negative head CT. Stable since 04/26/2021.
--- NOTE | 2021-11-10 09:55 | PC.NURSE ---
pt resting in bed, calm and cooperative. brought pt a water. offered food, pt declined
--- NOTE | 2021-11-10 10:34 | PC.NURSE ---
accompanied pt to and from CT. returned to bed. Licensed Real Estate Broker at bedside with a Bible per patient request. pt remains cheerful, calm, and cooperative
[2021-11-10 10:51] LABS: Amphetamines Screen Urine Negative (Negative); Barbiturates Screen Urine Negative (Negative); Benzodiazepines Screen Urine Negative (Negative); Cocaine Screen Urine Negative (Negative); Opiate Screen Urine Positive (Negative); PCP Screen Urine Negative (Negative); THC Screen Urine Positive (Negative)
[2021-11-10] MEDS: amlodipine 10 mg Tablet PO (10:58)
[2021-11-10] MEDS: metoprolol succinate ER (24 HR) 25 mg Tablet PO (10:58)
[2021-11-10] MEDS: LORazepam 2 mg Tablet PO (11:01)
[2021-11-10] MEDS: OLANZapine 10 mg ODT PO (11:02)
[2021-11-10] MEDS: labetalol 5 mg/mL SDV 20mL 10 MG IVP (11:14)
--- NOTE | 2021-11-10 11:25 | PC.NURSE ---
Addendum entered by Mackenzie Hernandez RN 11/10/21 11:28: Requested pt to return to bed and educated pt on fall risk due to VS equipment. educated pt on importance of VS monitoring. pt verbalized understanding and returned to bed. Original Note: pt standing in doorway. pt noted have increased anger and demanding staff to medicate him and tie me down. pt reports he is upset because he just found out his grandfather is Yinka and nobody is listening to his story. pt able to be verbally redirected
--- NOTE | 2021-11-10 11:57 | PC.NURSE ---
pt laying in bed asleep. oxygen 86-88% on RA. placed pt on 2 L/NC while asleep
--- NOTE | 2021-11-10 12:51 | PC.NURSE ---
attempted to call report to [facility], was reported that there is not a bed available until they have discharges.
--- NOTE | 2021-11-10 13:33 | PC.NURSE ---
pt still sleeping. pt oxygen was improved, returned pt to room air. oxygen level remains above 90% on room air.
[2021-11-11 06:00] VITALS: BP 136/86; PULSE 86; RESP 17; TEMP 37; O2SAT 98
--- NOTE | 2021-11-11 08:35 | P.NPUHP_ITS ---
Providers/Chief Complaint Admitting Physician: Thaddeus Bennett MD Primary Care Provider: Dameon Perrin DO Chief Complaint: 96 HPI NPU History of Present Illness Jame Ross is a 61 year old white male who was placed on a 96-hour hold by [facility]'s department out of concern from the family stating that he was making poor decisions. The patient was admitted to the neuropsychiatric unit on a 96-hour hold for definitive treatment. Patient had reported no significant psychiatric history but states that over the past week he has required significantly less sleep without being tired. He reports that his family has been concerned about his new behavior and believes. The patient described in some detail that 3 days prior to admission, he had been urged through a tiny voice in his head to pick remover to homeless man near the [facility] in [place] and helps them on their journey. He reports that without any influence from these 2 men, he decided to take them home and proceeded to take his with him and drive nonstop to [facility] where one of his passengers were awaiting a family member to meet them there from [place]. The patient reports that he had a hotel room with his and he was awoken in the middle of the night having been in bed by his family members who proceeded to pick him and his up and take him back to his home in [place]. He reports that he has been writing and thinking more. He reports no thoughts of hurting himself or others. He admits that he has been having thoughts and behaviors that would be out of character for his family members. He states that his has been concerned that he has not been himself. He denies any depressed mood. He does admit to being more alevism recently. He had indicated that on his way to his destination in [place] he had apparently ran out of gas and was praying for his car to start. The patient did report that he does believe in God and states that miracles do happen. He did admit though that it was gasoline that was necessary to get the automobile working again. He had reported that he had recently felt that prayer had allowed him to get off of medications that he had previously needed for his medical illness. Psychiatric history: Patient denies any prior psychiatric inpatient or outpatient treatment. Medical History: psoriatic arthritis, gastroesophageal reflux disease, history of cardiomyopathy history of COPD Allergies: no known drug allergies Surgeries: Appendectomy, hemorrhoidectomy, knee surgery, history of unspecified ear nose and throat surgery Medications: None currently Drug and alcohol history: He had reported a past history of alcohol use, Family Psychiatric History: none reported Social history: The patient reports having lived in [place] with his of several years. He reports that he has been on disability for his psoriatic arthritis, he reports being a alevism person and states that he has been studying the [employer] for many years. He reports having graduated from high school and has 3 children who he describes being close with that live nearby. He denies any history of sexual physical or emotional abuse. He reports that his mother is still alive and appears to live with him. Meds NPU Home Medications Medication Instructions Recorded Confirmed Last Taken Type amlodipine 10 mg tablet 10 mg PO QAM 03/11/19 11/10/21 04/26/21 History atorvastatin 40 mg tablet 40 mg PO BEDTIME 03/11/19 11/10/21 04/25/21 History duloxetine 60 mg capsule,delayed 60 mg PO QAM 03/11/19 11/10/21 04/26/21 History release sprinkle zolpidem 10 mg tablet 10 mg PO BEDTIME 03/25/19 11/10/21 04/25/21 History hydrocodone 10 mg-acetaminophen 1 tab PO QID PRN Pain 05/27/19 11/10/21 Unknown History 325 mg tablet pantoprazole 40 mg tablet,delayed 40 mg PO BEDTIME PRN Stomach Upset 01/31/21 11/10/21 04/25/21 History release albuterol sulfate 90 mcg/actuation 1 inh inhalation Q6H PRN shortness 02/01/21 11/10/21 Unknown Rx aerosol inhaler (ProAir HFA) of breath or wheezing #6.7 grams Lactobacillus acidophilus 10 mg PO DAILY 04/26/21 11/10/21 04/26/21 History (Acidophilus capsule) tofacitinib 5 mg tablet (Xeljanz) 5 mg PO BID #60 tabs 07/18/21 11/10/21 Unknown Rx aspirin 81 mg capsule 81 mg PO DAILY 11/10/21 11/10/21 Unknown History leflunomide 20 mg tablet 20 mg PO DAILY 11/10/21 11/10/21 Unknown History metoprolol tartrate 25 mg tablet 25 mg PO BID 11/10/21 11/10/21 Unknown History Allergies Allergy/AdvReac Type Severity Reaction Status Date / Time No Known Allergies Allergy Verified 07/18/21 15:21 PFS NPU PFS: Medical History (Updated 11/11/21 @ 09:43 by Thaddeus Bennett MD) Cardiomyopathy Cervical spondylosis COPD (chronic obstructive pulmonary disease) Current chronic use of systemic steroids Dyspnea Fever Fibromyalgia GERD (gastroesophageal reflux disease) High risk medication use Hypoxia Immunization counseling Immunosuppression Lumbosacral spondylosis with radiculopathy Posterior tibial tendon dysfunction, bilateral Psoriasis Psoriatic arthritis Surgical History History of appendectomy History of ear, nose, and throat (ENT) surgery History of repair of anterior cruciate ligament of right knee Hx of hemorrhoidectomy Family History Denies family history of Diabetes Cancer Stroke Social History Smoking and tobacco status: never smoked Alcohol intake: never Lives independently: No Household members: spouse Marital status: Current occupational status: disabled History of recent travel: No Mental Status Exam MSE Comments: The patient is a pleasant white male who was alert and oriented to person place and time. His gait appeared within normal limits. His hygiene appeared fair. He did not appear to have any evidence of pressured speech it was normal in regards to rate rhythm and prosody. There was no evidence of any abnormal involuntary motor movements tics or tremors appreciated. His mood was described as good. His affect appeared slightly elevated given the situation. He he had showed evidence of overvalued ideas and some alevism grandiosity. He had endorsed ideas that prayer could solve all of his medical issues. His attention appeared poor as he was unable to spell world backwards on examination. He was able to recall past 3 presidents without difficulty. His registration was intact. His recent and remote memory appeared fair. His insight was poor his judgment was poor his impulse control appeared poor as well. Vitals/I&O/Wt Last Vital Signs Temp 98.6 F 11/11/21 06:00 Pulse 86 11/11/21 06:00 Resp 17 09/30/22 06:00 BP 136/86 11/11/21 06:00 Pulse Ox 98 11/11/21 06:00 O2 Del Method 11/11/21 06:00 Weight last 48 hrs Weight 95.254 kg Data NPU : 11/10/21 08:56 11/10/21 08:56 A&P Assessment and plan (1) Manic behavior: (2) Impulse control disorder: (3) Psychotic disorder: Plan This is a 61-year-old white male with an unknown history of psychiatric illness currently involuntarily hospitalized due to a recent change in behavior with hyperreligiosity and recent unusual behavior with some evidence of decreased n eed for sleep. 1.? Continue current medications- will gather further information from primary and restart several medications that patient agreeable to start (hasnt taken since may per patient) 2.? Encourage individual, group and milieu therapy 3.? Continue q-15 minute check for safety Involuntary Hold Information 96 Hour Hold: 96 Hour Involuntary Admission: Yes Attestations NPU Medical Necessity Statement*: Inpatient hospitalization is medically necessary and the clinically appropriate intervention at this time. We will monitor medications and make changes as indicated. Patient will be in the hospital for over two midnights. Likely length of stay is five to seven days. Coding Level of Care Code New Pt Acute Occupational Therapy Manager for Adrienne Fwwilton Patient Type New History Problem Focused Exam Problem Focused Medical Decision Making Straight Forward Diagnoses Manic behavior F30.10 Impulse control disorder F63.9 Psychotic disorder F29
--- NOTE | 2021-11-11 11:25 | PC.NURSE ---
Behavioral assessment Patient smiling and jovial this morning. Patient denies AH/VH and SI/HI. Patient very pleasant and states, I'm here because of the trip I took. Patient states his family brought him here because he was acting differently than his normal self. He says he is hearing God speak to him and feels within himself when he is supposed to do something and that he is a totally different person than before. Patient states he is not mad in the least that his family feels the way they do because, he says, I would've done the same thing. Patient recounts the day he took his trip to be the best day of his life. He then began to ramble and change topics quickly. He went from talking about his trip, to his mother's , to when he was younger in a span of 5 minutes without any tangible connections linking the stories. No distress noted.
[2021-11-11 14:00] VITALS: BP 146/91; PULSE 113; RESP 18; TEMP 36.9; O2SAT 96
[2021-11-11 20:46] VITALS: BP 160/111; PULSE 110; RESP 14; TEMP 36.9; O2SAT 97
[2021-11-12 05:53] VITALS: BP 127/88; PULSE 108; RESP 16; TEMP 36.4; O2SAT 97
[2021-11-12] MEDS: aspirin 81 mg EC Tablet PO (08:55)
--- NOTE | 2021-11-12 10:45 | PC.NURSE ---
Pt refused to take his metroprolol this morning, he stated that he had already been 3 days without it and didn't see the need in taking it. Pt did take his aspirin dose this morning.
[2021-11-12] MEDS: diphenhydrAMINE 50 mg Capsule PO (12:01)
[2021-11-12] MEDS: haloperidol 5 mg Tablet PO (12:01)
[2021-11-12] MEDS: LORazepam 2 mg Tablet PO (12:01)
[2021-11-12] MEDS: metoprolol tartrate 25 mg Tablet PO (12:03)
[2021-11-12] MEDS: nicotine 2 mg Gum BUCCAL (12:30)
[2021-11-12 14:00] VITALS: BP 130/86; PULSE 103; RESP 18; TEMP 36.6; O2SAT 97
--- NOTE | 2021-11-12 19:26 | W.PM.NPUPNS ---
Subjective NPU Subjective: Patient is a 61-year-old white male admitted with recent decreased need for sleep unusual impulsive behavior and psychotic symptoms in a 96-hour hold. Patient had refused any medications at this time to help. He reports that he is in the process of transforming into something different. He appeared to walk around the milieu often engaging with other patients and introducing his amish beliefs upon others on the milieu. He [place] that he had been a receipt of a gift from God. He reports that he was just beginning and acknowledged that his actions of driving all night to [place] was viewed as unusual to his family members. Mental Status Exam MSE Comments: The patient is a pleasant white male who was alert and oriented to person place and time. His gait appeared within normal limits. His hygiene appeared fair. He did not appear to have any evidence of pressured speech it was normal in regards to rate rhythm and prosody. There was no evidence of any abnormal involuntary motor movements tics or tremors appreciated. His mood was described as good. His affect appeared slightly elevated given the situation. He he had showed evidence of overvalued ideas and significant amish grandiosity and clear ideas of reference. He had endorsed ideas that prayer could solve all of his medical issues. There was clear evidence of overvalued ideas. His attention appeared variable. His insight was poor his judgment was poor his impulse control appeared poor as well. Vitals/I&O/Wt Last Vital Signs Temp 98 F 11/12/21 14:00 Pulse 103 H 11/12/21 14:00 Resp 18 11/12/21 14:00 BP 130/86 11/12/21 14:00 Pulse Ox 97 11/12/21 14:00 O2 Del Method 11/12/21 05:53 Data NPU : 11/10/21 08:56 11/10/21 08:56 A&P Assessment and plan (1) Manic behavior: (2) Impulse control disorder: (3) Psychotic disorder: Plan This is a 61-year-old white male with an unknown history of psychiatric illness currently involuntarily hospitalized due to a recent change in behavior with hyperreligiosity and recent unusual behavior with some evidence of decreased need for sleep. 1.? Continue current medications- patient will require forced medications at this time. Consider MRI head. 2.? Encourage individual, group and milieu therapy 3.? Continue q-15 minute check for safety Involuntary Hold Information 96 Hour Hold: 96 Hour Involuntary Admission: Yes Attestations NPU Medical Necessity Statement*: Inpatient hospitalization is medically necessary and the clinically appropriate intervention at this time. We will monitor medications and make changes as indicated. Patient likely require a stay of five to seven days. Coding Level of Care Code Established Pt Acute [employer] Business Analyst for Carol Anng Fwd Patient Type Established History Problem Focused Exam Problem Focused Medical Decision Making Straight Forward Diagnoses Manic behavior F30.10 Impulse control disorder F63.9 Psychotic disorder F29
[2021-11-12] MEDS: atorvastatin 40 mg Tablet PO (20:54)
[2021-11-12] MEDS: zolpidem 5 mg Tablet 10 MG PO (20:55)
[2021-11-12 21:10] VITALS: BP 111/78; PULSE 96; RESP 17; TEMP 36.8; O2SAT 98
[2021-11-13 06:00] VITALS: BP 137/87; PULSE 113; RESP 17; TEMP 36.8; O2SAT 97; BMI 34.2
[2021-11-13] MEDS: metoprolol tartrate 25 mg Tablet PO ×2 (08:54→17:37)
[2021-11-13] MEDS: aspirin 81 mg EC Tablet PO (08:55)
--- NOTE | 2021-11-13 13:46 | W.PM.NPUPNS ---
Subjective NPU Subjective: Patient is a 61-year-old white male admitted with acute mental status changes and recent presence of moravian delusions. The patient continued to be redirectable on the unit. He reports continuing to leave things to God. He continued to report having plans for further changes as directed by God. He reported that his immediate family including his children had already given up on me . The patient had reported feeling optimistic that his grandchildren had not. He continues to refuse to take any medications at this time to target his active symptoms. Mental Status Exam MSE Comments: The patient is a pleasant white male who was alert and oriented to person place and time. His gait appeared within normal limits. His hygiene appeared fair. He did not appear to have any evidence of pressured speech as it was normal in regards to rate rhythm and prosody. There was no evidence of any abnormal involuntary motor movements tics or tremors appreciated. His mood was described as great His affect appeared slightly elevated intensity with narrow high range. He he had showed evidence of overvalued ideas and significant moravian grandiosity and clear ideas of reference. He had endorsed ideas that prayer could solve all of his medical issues. His attention appeared variable. His insight was poor his judgment was poor his impulse control appeared poor as well. Vitals/I&O/Wt Last Vital Signs Temp 98.2 F 11/13/21 06:00 Pulse 113 H 11/13/21 06:00 Resp 17 11/13/21 06:00 BP 137/87 11/13/21 06:00 Pulse Ox 97 11/13/21 06:00 O2 Del Method 11/13/21 06:00 Weight last 48 hrs Weight 93.213 kg Weight 93.213 kg Data NPU : 11/10/21 08:56 11/10/21 08:56 A&P Assessment and plan (1) Manic behavior: (2) Impulse control disorder: (3) Psychotic disorder: Plan This is a 61-year-old white male with an unknown history of psychiatric illness currently involuntarily hospitalized due to a recent change in behavior with hyperreligiosity and recent unusual behavior with some evidence of decreased need for sleep. 1.? Continue current medications- patient will require forced medications at this time. Consider MRI head. 2.? Encourage individual, group and milieu therapy 3.? Continue q-15 minute check for safety Involuntary Hold Information 96 Hour Hold: 96 Hour Involuntary Admission: Yes Attestations NPU Medical Necessity Statement*: Inpatient hospitalization is medically necessary and the clinically appropriate intervention at this time. We will monitor medications and make changes as indicated. Patient likely require a stay of five to seven days. Coding Level of Care Code Established Pt Acute Clerk Travel Reservations for Adrienne Fwd Patient Type Established History Problem Focused Exam Problem Focused Medical Decision Making Straight Forward Diagnoses Manic behavior F30.10 Impulse control disorder F63.9 Psychotic disorder F29
[2021-11-13 14:00] VITALS: BP 142/90; PULSE 96; RESP 18; TEMP 37.1; O2SAT 97
[2021-11-13] MEDS: HYDROcodone-acetaminophen 10-325 mg Tablet 1 TAB PO (16:02)
--- NOTE | 2021-11-13 16:09 | PC.NURSE ---
Pt experiencing pain 7/10 on pain scale, for headache and low back pain. Administered hydrocodone 10-325mg.
[2021-11-13] MEDS: atorvastatin 40 mg Tablet PO (19:50)
[2021-11-13] MEDS: zolpidem 5 mg Tablet 10 MG PO (19:50)
[2021-11-13 21:37] VITALS: BP 116/72; PULSE 78; RESP 18; TEMP 36.4; O2SAT 93
[2021-11-14 06:00] VITALS: BP 126/85; PULSE 109; RESP 17; TEMP 36.8; O2SAT 96
[2021-11-14] MEDS: metoprolol tartrate 25 mg Tablet PO ×2 (08:18→17:27)
[2021-11-14] MEDS: aspirin 81 mg EC Tablet PO (08:18)
[2021-11-14] MEDS: acetaminophen 325 mg Tablet 650 MG PO (10:12)
[2021-11-14] MEDS: HYDROcodone-acetaminophen 10-325 mg Tablet 1 TAB PO ×2 (12:17→17:27)
[2021-11-14 14:00] VITALS: BP 135/89; PULSE 99; RESP 18; TEMP 36.7; O2SAT 96
--- NOTE | 2021-11-14 18:10 | P.NPUPN_ITS ---
Subjective NPU Subjective: Patient is a 61-year-old white male admitted with acute mental status changes and recent presence of yarsani delusions. Patient had a Mini- Mental status exam completed today and scored 28 out of 30. He has been redirectable on the unit. He continues to focus on his preoccupation with reli gijuventino and continue to minimize the significance of his hospitalization. He had revealed that he had given unnecessary information such as his credit card to the 2 men that had received a ride from [place] to [place] by him. He continues to spend time speaking with other patients about God and appeared to be pleasant and redirectable on the milieu. He had reported feeling hopeful about the future and stated that there were more changes in his life to come. He had asked if the senior underwriter of this note believed in miracles . Mental Status Exam MSE Comments: The patient is a pleasant white male who was alert and oriented to person place and time. His gait appeared within normal limits. His hygiene appeared fair. He did not appear to have any evidence of pressured speech as it was normal in regards to rate rhythm and prosody. There was no evidence of any abnormal involuntary motor movements tics or tremors appreciated. His mood was described as good. His affect appeared euthymic and narrow in range. He had showed evidence of overvalued ideas and significant yarsani grandiosity and clear ideas of reference. He had endorsed ideas that prayer could solve all of his medical issues. His attention appeared variable. His insight was poor. his judgment was poor.his impulse control appeared poor as well. Vitals/I&O/Wt Last Vital Signs Temp 98.1 F 11/14/21 14:00 Pulse 99 11/14/21 14:00 Resp 18 11/14/21 14:00 BP 135/89 11/14/21 14:00 Pulse Ox 96 11/14/21 14:00 O2 Del Method 11/14/21 06:00 Weight last 48 hrs Weight 93.213 kg Weight 93.213 kg Data NPU : 11/10/21 08:56 11/10/21 08:56 A&P Assessment and plan (1) Manic behavior: (2) Impulse control disorder: (3) Psychotic disorder: Plan This is a 61-year-old white male with an unknown history of psychiatric illness currently involuntarily hospitalized due to a recent change in behavior with hyperreligiosity and recent unusual behavior with some evidence of decreased need for sleep. 1.? Continue current medications- patient will require forced medications at this time. Consider MRI head with and without contrast for acute psychosis 2.? Encourage individual, group and milieu therapy 3.? Continue q-15 minute check for safety Involuntary Hold Information 96 Hour Hold: 96 Hour Involuntary Admission: Yes Attestations NPU Medical Necessity Statement*: Inpatient hospitalization is medically necessary and the clinically appropriate intervention at this time. We will monitor medications and make changes as indicated. Patient likely require a stay of five to seven days. Coding Level of Care Code Established Pt Acute Acoustical Tile Drill Press Operator for Chg Fwd Patient Type Established History Problem Focused Exam Problem Focused Medical Decision Making Straight Forward Diagnoses Manic behavior F30.10 Impulse control disorder F63.9 Psychotic disorder F29
[2021-11-14] MEDS: risperiDONE 1 mg Tablet 0.5 MG PO (18:38)
[2021-11-14] MEDS: ibuprofen 600 mg Tablet PO (18:38)
[2021-11-14] MEDS: zolpidem 5 mg Tablet 10 MG PO (20:25)
[2021-11-14] MEDS: atorvastatin 40 mg Tablet PO (20:25)
[2021-11-14 21:17] VITALS: BP 134/85; PULSE 98; RESP 17; TEMP 36.6; O2SAT 97
[2021-11-14] MEDS: pantoprazole DR 40 mg Tablet PO (21:21)
[2021-11-15 06:00] VITALS: BP 132/92; PULSE 102; RESP 16; TEMP 36.7; O2SAT 94
[2021-11-15] MEDS: metoprolol tartrate 25 mg Tablet PO ×2 (08:35→17:13)
[2021-11-15] MEDS: ibuprofen 600 mg Tablet PO ×2 (08:35→13:12)
[2021-11-15] MEDS: HYDROcodone-acetaminophen 10-325 mg Tablet 1 TAB PO ×2 (08:36→13:13)
[2021-11-15] MEDS: aspirin 81 mg EC Tablet PO (08:36)
[2021-11-15 14:00] VITALS: RESP 20
--- NOTE | 2021-11-15 16:07 | P.NPUPN_ITS ---
Subjective NPU Subjective: Patient is a 61-year-old white male admitted with acute mental status changes and recent presence of episcopalian delusions. Patient had been agreeable to taking a pill stating that if it made his family happy to take a pill he would take it even if he did not believe that he needed 1. Patient continue to appear excessively episcopalian on the unit trying to preach and educate others regarding God. He had reported improved sleep with the 0.5 mg of Risperdal last night. He reported no side effects. He states that he had felt that the ringing in his ears varied from right to left as 1 year correlated with a certain thien speaking to him and another ear correlated with another Thien speaking to him he reports that he will stay here as long as he needs to in order to return home to his family.. Mental Status Exam MSE Comments: The patient is a pleasant white male who was alert and oriented to person place and time. His gait appeared within normal limits. His hygiene appeared fair. He did not appear to have any evidence of pressured speech as it was normal in regards to rate rhythm and prosody. There was no evidence of any abnormal involuntary motor movements tics or tremors appreciated. His mood was described as great. His affect appeared exessively exuberant. He had showed evidence of overvalued ideas and significant episcopalian grandiosity and clear ideas of reference. He had endorsed ideas that prayer could solve all of his medical issues. His attention appeared variable. His insight was poor. His judgment was poor. His impulse control appeared poor as well. Vitals/I&O/Wt Last Vital Signs Temp 98.0 F 11/15/21 06:00 Pulse 102 H 11/15/21 06:00 Resp 16 11/15/21 06:00 BP 132/92 11/15/21 06:00 Pulse Ox 94 11/15/21 06:00 O2 Del Method 11/15/21 06:00 Data NPU : 11/10/21 08:56 11/10/21 08:56 A&P Assessment and plan (1) Manic behavior: (2) Impulse control disorder: (3) Psychotic disorder: Plan This is a 61-year-old white male with an unknown history of psychiatric illness currently involuntarily hospitalized due to a recent change in behavior with hyperreligiosity and recent unusual behavior with some evidence of decreased need for sleep. 1.? Increase risperidone to 1mg at night, decrease ambien 5mg at night 2.? Encourage individual, group and milieu therapy 3.? Continue q-15 minute check for safety Involuntary Hold Information 96 Hour Hold: 96 Hour Involuntary Admission: Yes Attestations NPU Medical Necessity Statement*: Inpatient hospitalization is medically necessary and the clinically appropriate intervention at this time. We will monitor medications and make changes as indicated. Patient likely require a stay of five to seven days. Coding Level of Care Code Established Pt Acute Practice Director for Chg Fwd Patient Type Established History Problem Focused Exam Problem Focused Medical Decision Making Straight Forward Diagnoses Manic behavior F30.10 Impulse control disorder F63.9 Psychotic disorder F29
[2021-11-15] MEDS: atorvastatin 40 mg Tablet PO (20:12)
[2021-11-15] MEDS: zolpidem 5 mg Tablet PO (20:12)
[2021-11-15] MEDS: risperiDONE 1 mg Tablet PO (20:12)
[2021-11-15 20:50] VITALS: BP 123/84; PULSE 84; RESP 16; TEMP 36.7; O2SAT 95
--- NOTE | 2021-11-15 21:30 | PC.NURSE ---
MRI Consent signed.
[2021-11-16 02:00] VITALS: PULSE 89; RESP 20; O2SAT 97
[2021-11-16] MEDS: albuterol 8 gm MDI 1 PUFF INHALATION ×2 (02:28→23:23)
[2021-11-16] MEDS: HYDROcodone-acetaminophen 10-325 mg Tablet 1 TAB PO ×3 (05:12→15:47)
[2021-11-16 06:00] VITALS: BP 162/96; PULSE 116; RESP 17; TEMP 36.8; O2SAT 98
[2021-11-16 07:56] VITALS: PULSE 106; RESP 16; O2SAT 98
[2021-11-16] MEDS: metoprolol tartrate 25 mg Tablet PO ×2 (08:55→18:28)
[2021-11-16] MEDS: ibuprofen 600 mg Tablet PO ×2 (08:55→15:47)
[2021-11-16] MEDS: aspirin 81 mg EC Tablet PO (08:55)
--- NOTE | 2021-11-16 09:52 | MR_ITS ---
WS: [id number] MRI BRAIN WITH AND WITHOUT CONTRAST HISTORY: acute psychosis COMPARISON: Prior MRI 01/29/[address] head 11/10/2021 TECHNIQUE: Multiplanar imaging performed through the brain with MultiHance 20 ml's IV. No acute infarcts are seen. Coe-white matter differentiation is well preserved. Mild T2 and FLAIR si gnal abnormalities in the periventricular and subcortical white matter. There is also mild atrophy in volving the temporal and frontal lobes. Not unexpected for the patient's age. No susceptibility artifacts or prior lacunar infarcts. Ventricles and extra-axial spaces are normal. Clivus and pituitary gland are normal. Visualized posterior fossa and brainstem are also normal. Postcontrast images are negative for masses or vascular malformations. Dural venous sinuses are normal. Paranasal sinuses: Well aerated with no significant disease. Mastoid air cells: Normal. Calvarium and scalp: Normal. MR/MR head wo/w con [id number] IMPRESSION: 1. Mild atrophy and mild small vessel ischemic disease. Mild progression since the prior examination from 2013. 2. No enhancing masses. No hemorrhage.
[2021-11-16] MEDS: gadobenate dimeglumine 20 mL vial IV (11:52)
[2021-11-16 14:00] VITALS: BP 126/85; PULSE 96; RESP 18; TEMP 36.6; O2SAT 95
--- NOTE | 2021-11-16 15:04 | P.NPUPN_ITS ---
Subjective NPU Subjective: Patient is a 61-year-old white male admitted with acute mental status changes and recent presence of scientology delusions. He had been compliant on the milieu. He reports no side effects to his risperidone and reported feeling great. He had reported that he continued to have multiple plans with making changes in his life and helping out his when he left here. He minimized any depressed mood. He had reported adequate sleep. He reported having good energy and being more motivated to do things that he had in many years. He reported having good support from his family members and stated that he had love for everyone. Mental Status Exam MSE Comments: The patient is a pleasant white male who was alert and oriented to person place and time. His gait appeared within normal limits. His hygiene appeared fair. His speech was normal in regards to rate rhythm and prosody.. There was no evidence of any abnormal involuntary motor movements tics or tremors appreciated. His mood was described as great. His affect remained expansive at times and overly euphoric. He had showed evidence of overvalued ideas and significant scientology grandiosity with some ideas of reference. He had endorsed ideas that prayer could solve all of his medical issues. His attention appeared variable. His insight was poor. His judgment was poor. His impulse control appeared guarded. Vitals/I&O/Wt Last Vital Signs Temp 98.2 F 11/16/21 06:00 Pulse 106 H 11/16/21 07:56 Resp 16 11/16/21 07:56 BP 162/96 11/16/21 06:00 Pulse Ox 98 11/16/21 07:56 O2 Del Method 11/16/21 07:56 Data NPU : 11/10/21 08:56 11/10/21 08:56 A&P Assessment and plan (1) Manic behavior: (2) Impulse control disorder: (3) Psychotic disorder: Plan This is a 61-year-old white male with an unknown history of psychiatric illness currently involuntarily hospitalized due to a recent change in behavior with hyperreligiosity and recent unusual behavior with some evidence of decreased need for sleep. 1.? Continue risperidone at 1mg at night, continue ambien 5mg at night. 2.? Encourage individual, group and milieu therapy 3.? Continue q-15 minute check for safety 4. MRI completed today with and without contrast. Involuntary Hold Information 96 Hour Hold: 96 Hour Involuntary Admission: Yes Attestations NPU Medical Necessity Statement*: Inpatient hospitalization is medically necessary and the clinically appropriate intervention at this time. We will monitor medications and make changes as indicated. Patient likely require a stay of five to seven days. Coding Level of Care Code Established Pt Acute Industrial Education Teacher for Adrienne Fwd Patient Type Established History Problem Focused Exam Problem Focused Medical Decision Making Straight Forward Diagnoses Manic behavior F30.10 Impulse control disorder F63.9 Psychotic disorder F29
[2021-11-16] MEDS: atorvastatin 40 mg Tablet PO (19:57)
[2021-11-16] MEDS: zolpidem 5 mg Tablet PO (19:57)
[2021-11-16] MEDS: risperiDONE 1 mg Tablet PO (19:58)
[2021-11-16 21:02] VITALS: BP 147/82; PULSE 86; RESP 17; TEMP 36.5; O2SAT 97
[2021-11-16 23:22] VITALS: PULSE 111; RESP 18; O2SAT 95
[2021-11-17] MEDS: trazodone 50 mg Tablet PO (00:22)
[2021-11-17] MEDS: HYDROcodone-acetaminophen 10-325 mg Tablet 1 TAB PO ×4 (04:48→19:32)
[2021-11-17 06:00] VITALS: BP 126/85; PULSE 104; RESP 16; TEMP 36.9; O2SAT 95
[2021-11-17] MEDS: aspirin 81 mg EC Tablet PO (08:28)
[2021-11-17] MEDS: metoprolol tartrate 25 mg Tablet PO ×2 (08:28→18:12)
[2021-11-17] MEDS: ibuprofen 600 mg Tablet PO (08:31)
--- NOTE | 2021-11-17 09:39 | W.PM.NPUPNS ---
Subjective NPU Subjective: Patient presents today reporting that he is uncertain why this was such a big deal. We talked about the fact that there is a hearing tomorrow at 3 PM for 21-day hold and that process was explained. We discussed that mother major concerns was his hyperreligious thinking that led to him driving randomly to [employer] and running out of gas where rational thinking would have made him stop and get gas that is done the other 47 years of his life. He seemed to be able to accept those terms but continued to speak quite grandiosely about the new improved version of him after this trip. Mental Status Exam MSE Comments: This is an overweight versus obese white male in hospital scrubs with adequate grooming with a significant colin. No abnormal movements. Cooperative with exam in no acute distress. Speech was normal rate and volume. Mood described as excellent, affect elevated. Thought process organized. Thought content: Patient denied suicidal or homicidal ideation, no delusions reported but concern for continued grandiose thinking noted, he denied auditory or visual hallucinations. Attention concentration appeared intact and memory mostly reliable but none formally tested. He is alert and oriented x3 but not necessarily purpose. Insight and judgment are limited impulse which are limited. Vitals/I&O/Wt Last Vital Signs Temp 98.4 F 11/17/21 06:00 Pulse 104 H 11/17/21 06:00 Resp 16 11/17/21 06:00 BP 126/85 11/17/21 06:00 Pulse Ox 95 11/17/21 06:00 O2 Del Method 11/16/21 23:22 Data NPU : 11/10/21 08:56 11/10/21 08:56 A&P Assessment and plan (1) Manic behavior: (2) Impulse control disorder: (3) Psychotic disorder: Plan This is a 61-year-old white male with an unknown history of psychiatric illness currently involuntarily hospitalized due to a recent change in behavior with hyperreligiosity and recent unusual behavior with some evidence of decreased need for sleep. 1.? Continue risperidone at 1mg at night, continue ambien 5mg at night. 2.? Encourage individual, group and milieu therapy 3.? Continue q-15 minute check for safety 4. MRI completed today with and without contrast. Involuntary Hold Information 96 Hour Hold: 96 Hour Involuntary Admission: Yes Attestations NPU Medical Necessity Statement*: Inpatient hospitalization is medically necessary and the clinically appropriate intervention at this time. We will monitor medications and make changes as indicated. Patient likely require a stay of 4-6 days. Coding Level of Care Code Acute Senior Cisco Network Engineer for g Fwd Diagnoses Manic behavior F30.10 Impulse control disorder F63.9 Psychotic disorder F29
--- NOTE | 2021-11-17 10:53 | PC.NURSE ---
pt called and reported pt had not slept all night. referred to safety check list and verified this. concerned about coming to visit . informed she was welcome to visit, or not depending on what her own needs were. transferred call to mariella certified social workers in health care extension for questions regarding 21 day hold
[2021-11-17 14:00] VITALS: BP 134/89; PULSE 96; RESP 16; TEMP 36.9; O2SAT 93
[2021-11-17 14:05] VITALS: PULSE 104; RESP 16; O2SAT 95
[2021-11-17] MEDS: albuterol 8 gm MDI 1 PUFF INHALATION ×2 (14:05→20:57)
[2021-11-17] MEDS: atorvastatin 40 mg Tablet PO (20:15)
[2021-11-17] MEDS: zolpidem 5 mg Tablet PO (20:15)
[2021-11-17] MEDS: risperiDONE 1 mg Tablet PO (20:15)
[2021-11-17] MEDS: pantoprazole DR 40 mg Tablet PO (20:15)
[2021-11-17 20:44] VITALS: BP 127/80; PULSE 91; RESP 18; TEMP 36.7; O2SAT 96
[2021-11-17 20:57] VITALS: PULSE 98; RESP 18; O2SAT 96
[2021-11-18] MEDS: HYDROcodone-acetaminophen 10-325 mg Tablet 1 TAB PO ×3 (01:30→16:06)
[2021-11-18 06:00] VITALS: BP 141/92; PULSE 101; RESP 16; TEMP 36.8; O2SAT 96
[2021-11-18 08:00] VITALS: PULSE 93; RESP 16; O2SAT 94
[2021-11-18] MEDS: aspirin 81 mg EC Tablet PO (08:07)
[2021-11-18] MEDS: metoprolol tartrate 25 mg Tablet PO ×2 (08:07→17:19)
--- NOTE | 2021-11-18 10:16 | NUR.SHIFT ---
PT PRESENTS CALM AND COOPERATIVE. DENIES SI/HI/AVH/ANXIETY/DEPRESSION. HYPERFOCUSED ON GOD AND PRAYING WITH PEERS AND STAFF. BRIGHT AFFECT. ELATED. REPORTS, LAST NIGHT WAS THE BEST NIGHT SINCE I'VE BEEN HERE. REPORTS GOOD APPETITE, BM THIS AM. PT REPORTS, I NEED TO GO TO MY COURT DATE TODAY BECAUSE I HAVE QUESTIONS AND GOD IS LEADING ME THERE.
[2021-11-18] MEDS: ibuprofen 600 mg Tablet PO (13:48)
[2021-11-18 14:00] VITALS: BP 137/89; PULSE 101; RESP 16; TEMP 36.6; O2SAT 97
--- NOTE | 2021-11-18 16:15 | PC.NURSE ---
PRN meds Patient states he has back pain at a 6/10. Administered hydrocodone/APAP at 1606.
--- NOTE | 2021-11-18 17:50 | P.NPUPN_ITS ---
Subjective NPU Subjective: Patient presents today reporting that he is feeling a little better. He talked to his brother in the midst of the hearing and did not contest his 21-day hold. We had a significant conversation including talking about Evaristo and Gavino and Daisy Thibodeaux and what a person might think if a parent did that today. We discussed the importance of him getting to the place where he feels safe that he is making decisions based on his own sound judgment. Mental Status Exam MSE Comments: This is an overweight versus obese white male in hospital scrubs with adequate grooming with a significant colin. No abnormal movements. Cooperative with exam in no acute distress. Speech was normal rate and volume. Mood described as pretty good, affect elevated. Thought process organized. Thought content: Patient denied suicidal or homicidal ideation, no delusions reported but concern for continued grandiose thinking noted, he denied auditory or visual hallucinations. Attention concentration appeared intact and memory mostly reliable but none formally tested. He is alert and oriented x3 but not necessarily purpose. Insight and judgment are limited impulse which are limited. Vitals/I&O/Wt Last Vital Signs Temp 98 F 11/18/21 14:00 Pulse 101 H 11/18/21 14:00 Resp 16 11/18/21 14:00 BP 137/89 11/18/21 14:00 Pulse Ox 97 11/18/21 14:00 O2 Del Method 11/18/21 08:00 Data NPU : 11/10/21 08:56 11/10/21 08:56 A&P Assessment and plan (1) Manic behavior: (2) Impulse control disorder: (3) Psychotic disorder: Plan This is a 61-year-old white male with an unknown history of psychiatric illness currently involuntarily hospitalized due to a recent change in behavior with hyperreligiosity and recent unusual behavior with some evidence of decreased need for sleep. 1.? Continue risperidone at 1mg at night, continue ambien 5mg at night. 2.? Encourage individual, group and milieu therapy 3.? Continue q-15 minute check for safety 4. MRI completed today with and without contrast. With no major findings. 5. Patient placed on a 21-day hold. Involuntary Hold Information 96 Hour Hold: 96 Hour Involuntary Admission: Yes Attestations NPU Medical Necessity Statement*: Inpatient hospitalization is medically necessary and the clinically appropriate intervention at this time. We will monitor medications and make changes as indicated. Patient likely require a stay of 3-5 days. Coding Level of Care Code Acute Missile And Missile Checkout Technician for Adrienne Fwd Diagnoses Manic behavior F30.10 Impulse control disorder F63.9 Psychotic disorder F29
[2021-11-18 20:24] VITALS: BP 124/80; PULSE 84; RESP 18; TEMP 36.6; O2SAT 95
[2021-11-18] MEDS: zolpidem 5 mg Tablet PO (20:24)
[2021-11-18] MEDS: atorvastatin 40 mg Tablet PO (20:24)
[2021-11-18] MEDS: pantoprazole DR 40 mg Tablet PO (20:25)
[2021-11-18] MEDS: trazodone 50 mg Tablet PO (20:25)
[2021-11-18] MEDS: risperiDONE 1 mg Tablet PO (20:25)
[2021-11-18] MEDS: albuterol 8 gm MDI 1 PUFF INHALATION (23:28)
[2021-11-18 23:29] VITALS: PULSE 112; RESP 18; O2SAT 95
[2021-11-19] MEDS: ibuprofen 600 mg Tablet PO (04:39)
[2021-11-19 05:19] VITALS: BP 122/83; PULSE 106; RESP 18; O2SAT 96
[2021-11-19] MEDS: HYDROcodone-acetaminophen 10-325 mg Tablet 1 TAB PO ×2 (07:47→17:31)
[2021-11-19] MEDS: metoprolol tartrate 25 mg Tablet PO ×2 (07:47→17:31)
[2021-11-19] MEDS: aspirin 81 mg EC Tablet PO (07:47)
--- NOTE | 2021-11-19 13:46 | NUR.SHIFT ---
This nurse had a conversation with this patient this am. Patient reports his trip was really a trip of marichuy. He asked this nurse if she believed in angels and had no preconceived notions of angels. This nurse stated, yes, I am a woman of marichuy. Pt then went and got a letter which is in the chart and asked this nurse to read it. After reading it, he delved further into his story He reported he saw two homeless guys with signs and one was named Tashi and the other was Breezy and when he told him his name, he winked at the patient and the patient reported to this nurse when he did that, I just knew he was the shane Breezy and I was meant to sit there. Pt reported he sat and ate a burger with the gentlemen, took them back to his house, let one shower and told them he would take them to [place] to meet up with a woman. Patient encourged (who was not happy with the situation) to come. went because she was concerned about the . Patient reports he knows he was listening to God's plan for him and now he has done God's request. He reports, previously in my life I didn't have the funds or ability to do something like this that God called me to do, but this time I did so I have done my piece of God's will and I am good for my life.
[2021-11-19 14:00] VITALS: BP 143/98; PULSE 98; RESP 16; TEMP 36.6; O2SAT 97
--- NOTE | 2021-11-19 15:17 | P.NPUPN_ITS ---
Subjective NPU Subjective: Patient returns today reporting that things are going okay. He continues to struggle with feeling nauseated the psychiatric nature of his pentecostal [employer]. We discussed goals for treatment including his continued improvement in sleep which is being documented. He made an emotional plea to be discharged so he go to his granddaughter's first dance more specifically see her in her dress. We discussed wanting him to be available and well for many dances to come. Mental Status Exam MSE Comments: This is an overweight versus obese white male in hospital scrubs with adequate grooming with a significant colin. No abnormal movements. Cooperative with exam in no acute distress. Speech was normal rate and volume. Mood described as pretty good, affect elevated. Thought process organized. Thought content: Patient denied suicidal or homicidal ideation, no delusions reported but concern for continued grandiose thinking noted, he denied auditory or visual hallucinations. Attention concentration appeared intact and memory mostly reliable but none formally tested. He is alert and oriented x3 but not necessarily purpose. Insight and judgment are limited impulse which are limited. Vitals/I&O/Wt Last Vital Signs Temp 98.3 F 11/19/21 21:08 Pulse 96 11/19/21 21:08 Resp 18 11/19/21 21:08 BP 149/95 11/19/21 21:08 Pulse Ox 97 11/19/21 21:08 O2 Del Method 11/19/21 05:19 Data NPU : 11/10/21 08:56 11/10/21 08:56 A&P Assessment and plan (1) Manic behavior: (2) Impulse control disorder: (3) Psychotic disorder: Plan This is a 61-year-old white male with an unknown history of psychiatric illness currently involuntarily hospitalized due to a recent change in behavior with hyperreligiosity and recent unusual behavior with some evidence of decreased need for sleep. 1.? Continue risperidone at 1mg at night we will consider increasing to 2 mg tomorrow, continue ambien 5mg at night. 2.? Encourage individual, group and milieu therapy 3.? Continue q-15 minute check for safety 4. MRI completed today with and without contrast. With no major findings. 5. Patient placed on a 21-day hold. Involuntary Hold Information 96 Hour Hold: 96 Hour Involuntary Admission: Yes Attestations NPU Medical Necessity Statement*: Inpatient hospitalization is medically necessary and the clinically appropriate intervention at this time. We will monitor medications and make changes as indicated. Patient likely require a stay of 3-5 days. Coding Level of Care Code Acute Cadd Drafter for Carol Anng Fwd Diagnoses Manic behavior F30.10 Impulse control disorder F63.9 Psychotic disorder F29
[2021-11-19] MEDS: trazodone 50 mg Tablet PO (20:49)
[2021-11-19] MEDS: atorvastatin 40 mg Tablet PO (20:49)
[2021-11-19] MEDS: risperiDONE 1 mg Tablet PO (20:49)
[2021-11-19 21:08] VITALS: BP 149/95; PULSE 96; RESP 18; TEMP 36.8; O2SAT 97
[2021-11-20] MEDS: acetaminophen 325 mg Tablet 650 MG PO (03:21)
[2021-11-20 06:00] VITALS: RESP 16
[2021-11-20] MEDS: metoprolol tartrate 25 mg Tablet PO ×2 (07:40→18:04)
[2021-11-20] MEDS: aspirin 81 mg EC Tablet PO (07:40)
[2021-11-20] MEDS: HYDROcodone-acetaminophen 10-325 mg Tablet 1 TAB PO ×2 (07:41→14:01)
--- NOTE | 2021-11-20 11:09 | PC.NURSE ---
Behavioral Assessment Patient calm and cooperative. Denies AH/VH and SI/HI. Patient jovial this morning and drawing. No distress noted and decreased hyperreligious activity.
--- NOTE | 2021-11-20 13:44 | W.PM.NPUPNS ---
Subjective NPU Subjective: Presents today reporting that he is doing fine. He continues to have some grandiose thinking and is very goal-directed at this point. We continue to discuss the critical nature of his sleep and talked about the possibility of increasing his Risperdal 2 mg p.o. nightly and importance of him continuing medication after discharge. He reported he and his are in discussions about changing things for the better at home. Mental Status Exam MSE Comments: This is an overweight versus obese white male in hospital scrubs with adequate grooming with a significant colin. No abnormal movements. Cooperative with exam in no acute distress. Speech was normal rate and volume. Mood described as really good, affect elevated. Thought process organized. Thought content: Patient denied suicidal or homicidal ideation, no delusions reported but concern for continued grandiose thinking noted, he denied auditory or visual hallucinations. Attention concentration appeared intact and memory mostly reliable but none formally tested. He is alert and oriented x3 but not necessarily purpose. Insight and judgment are limited impulse which are limited. Vitals/I&O/Wt Last Vital Signs Temp 98.3 F 11/19/21 21:08 Pulse 96 11/19/21 21:08 Resp 16 11/20/21 06:00 BP 149/95 11/19/21 21:08 Pulse Ox 97 11/19/21 21:08 O2 Del Method 11/19/21 05:19 Weight last 48 hrs Weight 97.069 kg Data NPU : 11/10/21 08:56 11/10/21 08:56 A&P Assessment and plan (1) Manic behavior: (2) Impulse control disorder: (3) Psychotic disorder: Plan This is a 61-year-old white male with an unknown history of psychiatric illness currently involuntarily hospitalized due to a recent change in behavior with hyperreligiosity and recent unusual behavior with some evidence of decreased need for sleep. 1.? Continue risperidone at 1mg at night we will consider increasing to 2 mg tomorrow, continue ambien 5mg at night. 2.? Encourage individual, group and milieu therapy 3.? Continue q-15 minute check for safety 4. MRI completed today with and without contrast. With no major findings. 5. Patient placed on a 21-day hold. Involuntary Hold Information 96 Hour Hold: 96 Hour Involuntary Admission: Yes Attestations NPU Medical Necessity Statement*: Inpatient hospitalization is medically necessary and the clinically appropriate intervention at this time. We will monitor medications and make changes as indicated. Patient likely require a stay of 2-4 days. Coding Level of Care Code Acute Automotive Engineering Technician for Carol Anng Fwd Diagnoses Manic behavior F30.10 Impulse control disorder F63.9 Psychotic disorder F29
[2021-11-20 14:00] VITALS: BP 111/74; PULSE 106; RESP 20; TEMP 36.8; O2SAT 93
[2021-11-20 20:12] VITALS: BP 119/73; PULSE 84; RESP 18; TEMP 37.2; O2SAT 96
[2021-11-20] MEDS: atorvastatin 40 mg Tablet PO (20:44)
[2021-11-20] MEDS: risperiDONE 1 mg Tablet PO (20:45)
[2021-11-20 22:06] VITALS: PULSE 110; RESP 18; O2SAT 95
[2021-11-20] MEDS: albuterol 8 gm MDI 1 PUFF INHALATION (22:12)
[2021-11-21 06:00] VITALS: BP 130/80; PULSE 98; RESP 16; TEMP 37; O2SAT 98
[2021-11-21 06:08] VITALS: PULSE 92; RESP 16; O2SAT 97
[2021-11-21] MEDS: albuterol 8 gm MDI 1 PUFF INHALATION ×2 (06:09→21:17)
[2021-11-21] MEDS: HYDROcodone-acetaminophen 10-325 mg Tablet 1 TAB PO ×2 (06:13→16:01)
[2021-11-21] MEDS: aspirin 81 mg EC Tablet PO (08:13)
[2021-11-21] MEDS: metoprolol tartrate 25 mg Tablet PO ×2 (08:13→17:48)
[2021-11-21 14:00] VITALS: BP 146/92; PULSE 100; RESP 16; TEMP 37; O2SAT 97
--- NOTE | 2021-11-21 14:10 | W.PM.NPUPNS ---
Subjective NPU Subjective: Patient presents today reporting that he is doing okay. He did talk with his and is very happy that she is managing herself and her needs without his presence. He has struggled with her doing less and him doing more when it is clear that she is capable. He did get an extra hour of sleep last night and we discussed being hopeful that the increase in Risperdal might bring about additional sleep which hopefully will stabilize the princess. Mental Status Exam MSE Comments: This is an overweight versus obese white male in hospital scrubs with adequate grooming with a significant colin. No abnormal movements. Cooperative with exam in no acute distress. Speech was normal rate and volume. Mood described as great, affect less elevated. Thought process organized. Thought content: Patient denied suicidal or homicidal ideation, no delusions reported but concern for continued grandiose thinking noted, he denied auditory or visual hallucinations. Attention concentration appeared intact and memory mostly reliable but none formally tested. He is alert and oriented x3 but not necessarily purpose. Insight and judgment are limited impulse control is limited. Vitals/I&O/Wt Last Vital Signs Temp 98.0 F 11/21/21 21:13 Pulse 87 11/21/21 21:16 Resp 18 11/21/21 21:16 BP 123/84 11/21/21 21:13 Pulse Ox 97 11/21/21 21:16 O2 Del Method 11/21/21 21:16 Weight last 48 hrs Weight 97.069 kg Data NPU : 11/10/21 08:56 11/10/21 08:56 A&P Assessment and plan (1) Manic behavior: (2) Impulse control disorder: (3) Psychotic disorder: Plan This is a 61-year-old white male with an unknown history of psychiatric illness currently involuntarily hospitalized due to a recent change in behavior with hyperreligiosity and recent unusual behavior with some evidence of decreased need for sleep. 1.? Continue risperidone at 1mg at night. Increasing to 2 mg and continue ambien 5mg at night. 2.? Encourage individual, group and milieu therapy 3.? Continue q-15 minute check for safety 4. MRI completed today with and without contrast. With no major findings. 5. Patient placed on a 21-day hold. Involuntary Hold Information 96 Hour Hold: 96 Hour Involuntary Admission: Yes Attestations NPU Medical Necessity Statement*: Inpatient hospitalization is medically necessary and the clinically appropriate intervention at this time. We will monitor medications and make changes as indicated. Patient likely require a stay of 2-4 days. Coding Level of Care Code Acute Foundry Finisher for g Fwd Diagnoses Manic behavior F30.10 Impulse control disorder F63.9 Psychotic disorder F29
[2021-11-21] MEDS: atorvastatin 40 mg Tablet PO (20:39)
[2021-11-21] MEDS: risperiDONE 1 mg Tablet 2 MG PO (20:40)
[2021-11-21 21:13] VITALS: BP 123/84; PULSE 89; RESP 18; TEMP 36.7; O2SAT 95
[2021-11-21 21:16] VITALS: PULSE 87; RESP 18; O2SAT 97
[2021-11-22] MEDS: HYDROcodone-acetaminophen 10-325 mg Tablet 1 TAB PO ×3 (04:48→20:20)
[2021-11-22 06:00] VITALS: BP 115/79; PULSE 86; RESP 18; TEMP 36.7; O2SAT 95
[2021-11-22] MEDS: metoprolol tartrate 25 mg Tablet PO ×2 (08:26→18:45)
[2021-11-22] MEDS: aspirin 81 mg EC Tablet PO (08:26)
[2021-11-22 14:00] VITALS: BP 108/73; PULSE 90; RESP 18; TEMP 36.6; O2SAT 95
--- NOTE | 2021-11-22 15:03 | W.PM.NPUPNS ---
Subjective NPU Subjective: Patient presents today reporting that he is optimistic about the prospect of discharge soon. He continues to report improvement in sleep and tolerating the increase to 2 mg p.o. nightly of Risperdal. He denied any sluggishness or other side effects. Less spontaneous talk about random plans. Mental Status Exam MSE Comments: This is an overweight versus obese white male in hospital scrubs with adequate grooming with a significant colin. No abnormal movements. Cooperative with exam in no acute distress. Speech was normal rate and volume. Mood described as pretty good, affect less elevated. Thought process organized. Thought content: Patient denied suicidal or homicidal ideation, no delusions reported but concern for continued grandiose thinking noted, he denied auditory or visual hallucinations. Attention concentration appeared intact and memory mostly reliable but none formally tested. He is alert and oriented x3 but not necessarily purpose. Insight and judgment are limited impulse control is limited. Vitals/I&O/Wt Last Vital Signs Temp 98.0 F 11/22/21 20:33 Pulse 89 11/22/21 23:10 Resp 18 11/22/21 23:10 BP 132/62 11/22/21 20:33 Pulse Ox 97 11/22/21 23:10 O2 Del Method 11/22/21 23:10 Data NPU : 11/10/21 08:56 11/10/21 08:56 A&P Assessment and plan (1) Manic behavior: (2) Impulse control disorder: (3) Psychotic disorder: Plan This is a 61-year-old white male with an unknown history of psychiatric illness currently involuntarily hospitalized due to a recent change in behavior with hyperreligiosity and recent unusual behavior with some evidence of decreased need for sleep. 1.? Continue risperidone at 1mg at night. Increased to 2 mg and continue ambien 5mg at night. 2.? Encourage individual, group and milieu therapy 3.? Continue q-15 minute check for safety 4. MRI completed today with and without contrast. With no major findings. 5. Patient placed on a 21-day hold. Involuntary Hold Information 96 Hour Hold: 96 Hour Involuntary Admission: Yes Attestations NPU Medical Necessity Statement*: Inpatient hospitalization is medically necessary and the clinically appropriate intervention at this time. We will monitor medications and make changes as indicated. Patient likely require a stay of 1-3 days. Coding Level of Care Code Acute Telecommunications Support for g Fwd Diagnoses Manic behavior F30.10 Impulse control disorder F63.9 Psychotic disorder F29
[2021-11-22] MEDS: risperiDONE 1 mg Tablet 2 MG PO (20:13)
[2021-11-22] MEDS: atorvastatin 40 mg Tablet PO (20:13)
[2021-11-22 20:33] VITALS: BP 132/62; PULSE 79; RESP 18; TEMP 36.7; O2SAT 94
[2021-11-22 23:10] VITALS: PULSE 89; RESP 18; O2SAT 97
[2021-11-22] MEDS: albuterol 8 gm MDI 1 PUFF INHALATION (23:10)
[2021-11-23] MEDS: HYDROcodone-acetaminophen 10-325 mg Tablet 1 TAB PO ×3 (03:58→15:34)
[2021-11-23 06:00] VITALS: BP 125/83; PULSE 102; RESP 20; TEMP 37; O2SAT 95
[2021-11-23] MEDS: aspirin 81 mg EC Tablet PO (08:05)
[2021-11-23] MEDS: metoprolol tartrate 25 mg Tablet PO ×2 (08:05→18:05)
--- NOTE | 2021-11-23 09:31 | PC.NURSE ---
Nursing Behavioral Assessment Patient smiling and conversating in hallway. Upon assessment he denies SI/HI and AH/VH. Patient states he was a little down when he found out he wasn't going home, but that he had accepted it. He also stated another patient from the other side of the unit had given him a letter that said he had changed their life. He became tearful when talking about it and stated it made him feel great. Patient calm and cooperative.
[2021-11-23] MEDS: nicotine 2 mg Gum BUCCAL ×2 (10:57→16:40)
[2021-11-23] MEDS: albuterol 8 gm MDI 1 PUFF INHALATION ×2 (11:14→22:29)
[2021-11-23 11:16] VITALS: PULSE 95; RESP 18; O2SAT 98
--- NOTE | 2021-11-23 11:44 | W.PM.NPUPNS ---
Subjective NPU Subjective: Patient presents today reporting insight about discharge tomorrow. His wanted to speak about the discharge time. He reports he is optimistic that things went this will happen again and he endorses a plan to be adherent to his medications. He denies any issues and reports eating fine and sleeping better. Mental Status Exam MSE Comments: This is an overweight versus obese white male in hospital scrubs with adequate grooming with a significant colin. No abnormal movements. Cooperative with exam in no acute distress. Speech was normal rate and volume. Mood described as pretty good, affect congruent. Thought process organized. Thought content: Patient denied suicidal or homicidal ideation, no delusions reported but concern for continued grandiose thinking noted, he denied auditory or visual hallucinations. Attention concentration appeared intact and memory mostly reliable but none formally tested. He is alert and oriented x3. Insight and judgment and impulse control are improving. Vitals/I&O/Wt Last Vital Signs Temp 98.6 F 11/23/21 06:00 Pulse 102 H 11/23/21 06:00 Resp 20 H 11/23/21 06:00 BP 125/83 11/23/21 06:00 Pulse Ox 95 11/23/21 06:00 O2 Del Method 11/23/21 22:29 Data NPU : 11/10/21 08:56 11/10/21 08:56 A&P Assessment and plan (1) Manic behavior: (2) Impulse control disorder: (3) Psychotic disorder: Plan This is a 61-year-old white male with an unknown history of psychiatric illness currently involuntarily hospitalized due to a recent change in behavior with hyperreligiosity and recent unusual behavior with some evidence of decreased need for sleep. 1.? Started risperidone at 1mg at night. Increased to 2 mg and continue ambien 5mg at night. 2.? Encourage individual, group and milieu therapy 3.? Continue q-15 minute check for safety 4. MRI completed today with and without contrast. With no major findings. 5. Patient placed on a 21-day hold. 6. expressing concerns about discharge. However there are no indications of concern. Involuntary Hold Information 96 Hour Hold: 96 Hour Involuntary Admission: Yes Attestations NPU Medical Necessity Statement*: Inpatient hospitalization is medically necessary and the clinically appropriate intervention at this time. We will monitor medications and make changes as indicated. Tentative plan for discharge tomorrow. Coding Level of Care Code Acute Power Distributor for Chg Fwd Diagnoses Manic behavior F30.10 Impulse control disorder F63.9 Psychotic disorder F29
[2021-11-23 14:00] VITALS: BP 153/93; PULSE 92; RESP 92; TEMP 36.8; O2SAT 99
--- NOTE | 2021-11-23 16:56 | PC.NURSE ---
Spoke with pt's about his possible discharge for tomorrow. Pt's feels that she has not been informed about his care, although she has spoken with this nurse on the unit multiple times, also with the medical social workers as well.
[2021-11-23 19:41] VITALS: BP 127/86; PULSE 96; RESP 18; TEMP 36.9; O2SAT 94
[2021-11-23] MEDS: atorvastatin 40 mg Tablet PO (20:15)
[2021-11-23] MEDS: risperiDONE 1 mg Tablet 2 MG PO (20:15)
[2021-11-23] MEDS: pantoprazole DR 40 mg Tablet PO (20:15)
[2021-11-23] MEDS: trazodone 50 mg Tablet PO ×2 (20:15→22:13)
--- NOTE | 2021-11-23 21:38 | PC.NURSE ---
patient Sarah states she will be out of town 11/24/21 so if patient is to be discharged noone will be home. also request to be called before discharging of patient, she also request information sheets and medication list on his medication upon discharge.
[2021-11-23 22:29] VITALS: PULSE 90; RESP 18; O2SAT 97
[2021-11-24] MEDS: hyDROXYzine 25 mg Capsule 50 MG PO (00:24)
[2021-11-24 05:26] VITALS: BP 109/73; PULSE 109; RESP 18; TEMP 37.3; O2SAT 90
[2021-11-24] MEDS: HYDROcodone-acetaminophen 10-325 mg Tablet 1 TAB PO ×3 (06:20→14:34)
[2021-11-24] MEDS: metoprolol tartrate 25 mg Tablet PO (08:35)
[2021-11-24] MEDS: aspirin 81 mg EC Tablet PO (08:35)
[2021-11-24] MEDS: ibuprofen 600 mg Tablet PO (11:19)
--- NOTE | 2021-11-24 12:01 | W.PM.NPUDCS ---
Diagnoses at Discharge Discharge Diagnosis (1) Manic behavior: Status: Resolved (2) Impulse control disorder: Status: Resolved (3) Psychotic disorder: Status: Acute Reason for Visit Reason for Visit: 96 Brief History: History of Present Illness Jame Ross is a 61 year old white male who was placed on a 96-hour hold by [facility] department out of concern from the family stating that he was making poor decisions. The patient was admitted to the neuropsychiatric unit on a 96-hour hold for definitive treatment. Patient had reported no significant psychiatric history but states that over the past week he has required significantly less sleep without being tired. He reports that his family has been concerned about his new behavior and believes. The patient described in some detail that 3 days prior to admission, he had been urged through a tiny voice in his head to black pickler to homeless man near the [facility] in [place] and helps them on their journey. He reports that without any influence from these 2 men, he decided to take them home and proceeded to take his with him and drive nonstop to [facility] where one of his passengers were awaiting a family member to meet them there from [place]. The patient reports that he had a hotel room with his and he was awoken in the middle of the night having been in bed by his family members who proceeded to pick him and his up and take him back to his home in [place]. He reports that he has been writing and thinking more. He reports no thoughts of hurting himself or others. He admits that he has been having thoughts and behaviors that would be out of character for his family members. He states that his has been concerned that he has not been himself. He denies any depressed mood. He does admit to being more mu-ism recently. He had indicated that on his way to his destination in [place] he had apparently ran out of gas and was praying for his car to start. The patient did report that he does believe in God and states that miracles do happen. He did admit though that it was gasoline that was necessary to get the automobile working again. He had reported that he had recently felt that prayer had allowed him to get off of medications that he had previously needed for his medical illness. Psychiatric history: Patient denies any prior psychiatric inpatient or outpatient treatment. Medical History: psoriatic arthritis, gastroesophageal reflux disease, history of cardiomyopathy history of COPD Allergies: no known drug allergies Surgeries: Appendectomy, hemorrhoidectomy, knee surgery, history of unspecified ear nose and throat surgery Medications: None currently Drug and alcohol history: He had reported a past history of alcohol use, Family Psychiatric History: none reported Social history: The patient reports having lived in [place] with his of several years. He reports that he has been on disability for his psoriatic arthritis, he reports being a mu-ism person and states that he has been studying the Bible for many years. He reports having graduated from high school and has 3 children who he describes being close with that live nearby. He denies any history of sexual physical or emotional abuse. He reports that his mother is still alive and appears to live with him. Hospital Course Hospital Course He slowly acclimated to the individual, group and milieu therapies provided. He presented with what was clear princess which responded well to mood stabilization with Risperdal which was titrated to 2 mg p.o. nightly. There were significant psychosocial stressors and challenges with some partner relational problems and work with the treating to get appropriate follow-up and to consider ways to approach some of the stressors from prehospitalization. He had significant improvement during the stay and was able to contract for safety outside hospital prior to discharge. During the hospitalization, patient had routine laboratory studies which were within normal limits except for few outliers. Additionally there was a general medical evaluation which was also within normal limits and revealed no new acute processes. Discharge Summary: At the time of discharge, he denied psychosis and lethality was resolving. Mood and anxiety were well managed. Patient endorsed a plan to follow-up with the aftercare recommendations of the treatment team. Patient was evaluated and deemed to be absent credible lethality, and had achieved the maximum benefit from an inpatient hospitalization, so was discharged. Involuntary Hold Information 96 Hour Hold: 96 Hour Involuntary Admission: Yes Mental Status Exam MSE Comments: This is an overweight versus obese white male in hospital scrubs with adequate grooming with a significant colin. No abnormal movements. Cooperative with exam in no acute distress. Speech was normal rate and volume. Mood described as pretty good, affect congruent. Thought process organized. Thought content: Patient denied suicidal or homicidal ideation, no delusions reported but concern for continued grandiose thinking noted, he denied auditory or visual hallucinations. Attention concentration appeared intact and memory mostly reliable but none formally tested. He is alert and oriented x3. Insight and judgment and impulse control are improving. Discharge Data Studies Completed and Pending: Completed Studies During Hospitalization Category Date Time Status CT head wo con* [id number] Stat Cat Scan 11/10/21 09:55 Completed MR head wo/w con [id number] Routine MRI 11/16/21 09:52 Completed Radiology Impressions Head CT 11/10/21 09:55 IMPRESSION: Negative head CT. Stable since 04/26/2021. Head MRI 11/16/21 09:52 IMPRESSION: 1. Mild atrophy and mild small vessel ischemic disease. Mild progression since the prior examination from 2013. 2. No enhancing masses. No hemorrhage. Laboratory Results WBC 7.2 10^3/uL (4.0- 10.0) 11/10/21 08:56 RBC 4.21 10^6/uL (4.1 -5.3) 11/10/21 08:56 Hgb 12.3 g/dL (11.7-1 6.6) 11/10/21 08:56 Hct 39.4 % (42.0-52.0 ) L 11/10/21 08:56 MCV 93.6 fl (80-94) 11/10/21 08:56 MCH 29.2 pg (28.0-34. 0) 11/10/21 08:56 MCHC 31.2 g/dL (30.0-3 6.0) 11/10/21 08:56 RDW 15.6 % (12.1-15.1 ) H 11/10/21 08:56 Plt Count 321 10^3/cmm (130 -400) 11/10/21 08:56 MPV 9.7 fL (7.4-10.4) 11/10/21 08:56 Neut % (Auto) 54.7 % 11/10/21 08:56 Lymph % (Auto) 22.0 % 11/10/21 08:56 [place] % (Auto) 16.0 % 11/10/21 08:56 Eos % (Auto) 6.5 % 11/10/21 08:56 Baso % (Auto) 0.7 % 11/10/21 08:56 Neut # (Auto) 3.92 10^3/uL (1.8 -7.7) 11/10/21 08:56 Lymph # (Auto) 1.6 10^3/uL (0.8- 4.8) 11/10/21 08:56 [place] # (Auto) 1.2 10^3/uL (0.2- 0.9) H 11/10/21 08:56 Eos # (Auto) 0.5 10^3/uL (0.0- 0.8) 11/10/21 08:56 Baso # (Auto) 0.1 10^3/uL (0.0- 0.1) 11/10/21 08:56 Nucleated RBC % (a uto) 0 % 11/10/21 08:56 Nucleated RBCs # 0.0 /100WBC 11/10/21 08:56 Sodium 137 mmol/L (136-1 45) 11/10/21 08:56 Potassium 3.4 mmol/L (3.5-5 .1) L 11/10/21 08:56 Chloride 99 mmol/L (98-107 ) 11/10/21 08:56 Carbon Dioxide 24 mmol/L (22-29) 11/10/21 08:56 Anion Gap 17.4 (5-19) 11/10/21 08:56 BUN 9 mg/dL (8-23) 11/10/21 08:56 Creatinine 0.9 mg/dL (0.7-1. 2) 11/10/21 08:56 GFR Calculation 85.2 mL/min (90-1 30) L 11/10/21 08:56 Glucose 139 mg/dL (65-115 ) H 11/10/21 08:56 Calculated Osmolal ity 285 mOsm/kg (285- 295) 11/10/21 08:56 Calcium 9.4 mg/dL (8.5-10 .5) 11/10/21 08:56 Total Bilirubin 0.6 mg/dL (0.15-1 .2) 11/10/21 08:56 AST 45 U/L (0-40) H 11/10/21 08:56 ALT 37 U/L (0-41) 11/10/21 08:56 Alkaline Phosphata se 76 U/L (40-130) 11/10/21 08:56 Total Protein 7.2 g/dL (6.6-8.7 ) 11/10/21 08:56 Albumin 4.4 g/dL (3.5-5.2 ) 11/10/21 08:56 Globulin 2.8 g/dL (1.3-4.6 ) 11/10/21 08:56 Salicylates 1.7 mg/dL (3-10) L 11/10/21 08:56 Urine Opiates Scre en Positive ng/mL (N egative) H 11/10/21 10:24 Acetaminophen < 5.0 ug/mL (10-3 0) L 11/10/21 08:56 Ur Barbiturates Sc reen Negative ng/mL (N egative) 11/10/21 10:24 Ur Phencyclidine S crn Negative ng/mL (N egative) 11/10/21 10:24 Ur Amphetamines Sc reen Negative ng/mL (N egative) 11/10/21 10:24 U Benzodiazepines Scrn Negative ng/mL (N egative) 11/10/21 10:24 Urine Cocaine Scre en Negative ng/mL (N egative) 11/10/21 10:24 U Marijuana (THC) Screen Positive ng/mL (N egative) H 11/10/21 10:24 Ethyl Alcohol < 10 mg/dL (0-10) 11/10/21 08:56 Vitals: Last Vital Signs Temp 99.1 F 11/24/21 05:26 Pulse 109 H 11/24/21 05:26 Resp 18 11/24/21 05:26 BP 109/73 11/24/21 05:26 Pulse Ox 90 11/24/21 05:26 O2 Del Method 11/23/21 22:29 Discharge Plan Discharge Patient Disposition: Home Condition: Stable Prescriptions: New hydroxyzine pamoate 25 mg Capsule 50 mg PO Q6H PRN (Reason: Anxiety) 30 Days Qty: 120 1RF risperidone 2 mg tablet 2 mg PO BEDTIME 30 Days Qty: 30 1RF trazodone 50 mg Tablet 50 mg PO BEDTIME PRN (Reason: Sleep) 30 Days Qty: 30 1RF Continued atorvastatin 40 mg tablet 40 mg PO BEDTIME zolpidem 10 mg tablet 10 mg PO BEDTIME hydrocodone-acetaminophen 10-325 mg tablet 1 tab PO QID PRN (Reason: Pain) Xeljanz 5 mg tablet 5 mg PO BID Qty: 60 3RF pantoprazole 40 mg tablet,delayed release (DR/EC) 40 mg PO BEDTIME PRN (Reason: Stomach Upset) albuterol sulfate [ProAir HFA] 90 mcg/actuation HFA aerosol inhaler 1 inh inhalation Q6H PRN (Reason: shortness of breath or wheezing) Qty: 6.7 1RF Acidophilus Capsule 10 mg PO DAILY aspirin 81 mg Capsule 81 mg PO DAILY leflunomide 20 mg tablet 20 mg PO DAILY metoprolol tartrate 25 mg tablet 25 mg PO BID Discharge Orders: Discharge Order (Routine); Ordered 11/24/21 Ordered By: Asad Patterson Referrals: [facility] [Outside] - 1-3 days (Walk in for initial appointment on Sunday through Sunday from 7:30 am to 3:00 pm. Application has been sent to [facility] Dameon Perrin DO [Primary Care Provider] - 11/30/21 2:00 pm (Follow up With Valeria Kowalski NP.) Discharge Diet: Regular Discharge Activity: Resume usual activity Patient Instructions: Trazodone (By mouth), Risperidone (By mouth), Hydroxyzine (By injection) (Restall, Vistacot), Opioid Safety Discharge Attestations NPU Time Spent in Discharge Care*: less than 30 min Specific Discharge Activities: Specific discharge activities: educating patient, discussing with human services case manager/social workers/dc planners, documenting/other paperwork and evaluating patient/reviewing data Status at Discharge: Cognitive status at discharge: cognitively intact, Behavioral status at discharge: cooperative, Coding Level of Care Code Acute Chg DC note Diagnoses Manic behavior F30.10 Impulse control disorder F63.9 Psychotic disorder F29
[2021-11-24 12:08] VITALS: BP 109/73; PULSE 109; RESP 18; TEMP 37.3; O2SAT 90
--- NOTE | 2021-11-24 13:20 | DCPLANNER ---
IMM was given to pt and rights explained. Copy places in file.
== END 2021-11-24 14:51 | disposition home or self-care (01) | DRG 885 ==
LOC: ER 08:59 → NP 20:00
PROVIDERS: Admitting Provider Psychiatry & Neurology Psychiatry; Emergency Provider Family Medicine; PCP Internal Medicine; Visit Provider Psychiatry & Neurology Psychiatry
DX: F30.10 Manic episode without psychotic symptoms, unspecified (principal); F63.9 Impulse disorder, unspecified; Z79.891 Long term (current) use of opiate analgesic; Z79.51 Long term (current) use of inhaled steroids; Z79.82 Long term (current) use of aspirin; M47.812 Spondylosis without myelopathy or radiculopathy, cervical region; J44.9 Chronic obstructive pulmonary disease, unspecified; M79.7 Fibromyalgia; M47.816 Spondylosis without myelopathy or radiculopathy, lumbar region; Z79.52 Long term (current) use of systemic steroids; L40.50 Arthropathic psoriasis, unspecified
CPT/HCPCS: 36415; 70450; 70553; 80053; 80306; 80307; 85025; 93005; 94640; 96374; 97150; 97165; 99285; A9577; J3490; J3535; Q0163

== ENCOUNTER → 2021-11-30 12:38 | Outpatient (BNVA) | payer MEDICARE, SELFPAY | PROVIDERS: PCP Internal Medicine; Visit Provider Internal Medicine Rheumatology | DX: L40.50 Arthropathic psoriasis, unspecified (principal); Z79.899 Other long term (current) drug therapy; Z71.89 Other specified counseling; K21.9 Gastro-esophageal reflux disease without esophagitis; K22.70 Barrett's esophagus without dysplasia; M47.26 Other spondylosis with radiculopathy, lumbar region; M47.892 Other spondylosis, cervical region | CPT/HCPCS: 99214 ==

== ENCOUNTER → 2022-03-29 12:31 | Outpatient (BNVA) | payer MEDICARE, SELFPAY | PROVIDERS: PCP Internal Medicine; Visit Provider Internal Medicine Rheumatology | DX: L40.50 Arthropathic psoriasis, unspecified (principal); Z79.899 Other long term (current) drug therapy; Z71.89 Other specified counseling; M11.29 Other chondrocalcinosis, multiple sites; M47.26 Other spondylosis with radiculopathy, lumbar region; M47.892 Other spondylosis, cervical region; K21.9 Gastro-esophageal reflux disease without esophagitis; K22.70 Barrett's esophagus without dysplasia | CPT/HCPCS: 36415; 80076; 82565; 85025; 86140; 99214 ==

== ENCOUNTER → 2022-05-15 11:33 | Outpatient (BNVA) | payer MEDICARE, SELFPAY | PROVIDERS: PCP Internal Medicine; Visit Provider Nurse Practitioner | DX: Z79.899 Other long term (current) drug therapy (principal); F43.24 Adjustment disorder with disturbance of conduct; F33.0 Major depressive disorder, recurrent, mild | CPT/HCPCS: 80061; 83036 ==

== ENCOUNTER → 2022-07-06 13:34 | Outpatient (BNVA) | payer MEDICARE, SELFPAY | PROVIDERS: PCP Internal Medicine; Visit Provider Internal Medicine Rheumatology | DX: L40.50 Arthropathic psoriasis, unspecified (principal); Z71.89 Other specified counseling; Z79.899 Other long term (current) drug therapy | CPT/HCPCS: 36415; 80076; 82565; 85025; 86140; 99214 ==

== ENCOUNTER 2022-07-20 11:35 | Outpatient (CLI) | payer MEDICARE, SELFPAY ==
[2022-07-20 12:41] LABS: Basophils % 0.6 %; Eosinophils # 0.2 10^3/uL (0.0-0.8); Eosinophils % 4.5 %; Hematocrit 36.6 % (42.0-52.0); Hemoglobin 11.2 g/dL (11.7-16.6); Lymphocytes # 1.2 10^3/uL (0.8-4.8); Lymphocytes % 25.4 %; Mean Corpuscular HGB Conc 30.6 g/dL (30.0-36.0); Mean Corpuscular Hemoglobin 29.3 pg (28.0-34.0); Mean Corpuscular Volume 95.8 fl (80-94); Mean Platelet Volume 9.1 fL (7.4-10.4); Monocytes # 0.4 10^3/uL (0.2-0.9); Monocytes % 7.9 %; Neutrophils # 2.97 10^3/uL (1.8-7.7); Neutrophils % 61.4 %; Nucleated Red Blood Cells % 0 %; Platelet Count 252 10^3/cmm (130-400); Red Blood Count 3.82 10^6/uL (4.1-5.3); Red Cell Distribution Width 14.9 % (12.1-15.1); White Blood Count 4.8 10^3/uL (4.0-10.0)
== END 2022-07-20 11:36 | disposition home or self-care (01) ==
PROVIDERS: Internal Medicine Rheumatology; PCP Internal Medicine; Visit Provider Internal Medicine Pulmonary Disease
DX: D64.9 Anemia, unspecified (principal)
CPT/HCPCS: 36415; 85025

== ENCOUNTER → 2022-10-12 13:16 | Outpatient (BNVA) | payer MEDICARE, SELFPAY | PROVIDERS: PCP Internal Medicine; Visit Provider Internal Medicine Rheumatology | DX: L40.50 Arthropathic psoriasis, unspecified (principal); Z79.899 Other long term (current) drug therapy; Z71.89 Other specified counseling | CPT/HCPCS: 36415; 80076; 82565; 99214 ==

== ENCOUNTER 2023-05-30 11:13 | Outpatient (CLI) | payer MEDICARE, SELFPAY ==
[2023-05-30 11:36] LABS: Basophils # 0.1 10^3/uL (0.0-0.1); Basophils % 1.2 %; Eosinophils # 0.5 10^3/uL (0.0-0.8); Eosinophils % 10.2 %; Hematocrit 38.6 % (37-53); Lymphocytes # 0.6 10^3/uL (0.8-4.8); Lymphocytes % 11.8 %; Mean Corpuscular HGB Conc 31.9 g/dL (30-55); Mean Corpuscular Volume 94.1 fl (82-101); Mean Platelet Volume 8.7 fL (7.4-10.4); Monocytes # 0.6 10^3/uL (0.2-0.9); Monocytes % 12.6 %; Neutrophils # 3.18 10^3/uL (1.8-7.7); Neutrophils % 63.8 %; Nucleated Red Blood Cells % 0 %; Platelet Count 281 10^3/cmm (157-399); Red Cell Distribution Width 14.6 % (12.1-15.1); White Blood Count 4.99 10^3/uL (3.29-11.43)
[2023-05-30 11:51] LABS: Alanine Aminotransferase 37 U/L (0-41); Albumin Level 4.2 g/dL (3.5-5.2); Alkaline Phosphatase 56 U/L (40-130); Aspartate Amino Transferase 28 U/L (0-40); Globulin 2.9 g/dL (1.3-4.6); Glomerular Filtration Rate 113.5 mL/min (90-130); Total Bilirubin 0.3 mg/dL (0.15-1.2); Total Protein 7.1 g/dL (6.6-8.7)
== END 2023-05-30 11:14 | disposition home or self-care (01) ==
LOC: LAB 11:22
PROVIDERS: PCP Internal Medicine; Visit Provider Internal Medicine Rheumatology
DX: Z79.899 Other long term (current) drug therapy (principal); L40.50 Arthropathic psoriasis, unspecified
CPT/HCPCS: 36415; 80076; 82565; 85025; 86140

== ENCOUNTER → 2023-08-13 10:29 | Outpatient (BNVA) | payer MEDICARE, SELFPAY | PROVIDERS: PCP Internal Medicine; Visit Provider Internal Medicine Rheumatology | DX: L40.50 Arthropathic psoriasis, unspecified (principal); Z79.899 Other long term (current) drug therapy; Z71.85 Encounter for immunization safety counseling; M76.70 Peroneal tendinitis, unspecified leg; M76.50 Patellar tendinitis, unspecified knee; M72.2 Plantar fascial fibromatosis; M77.01 Medial epicondylitis, right elbow; M77.02 Medial epicondylitis, left elbow; M77.11 Lateral epicondylitis, right elbow; M77.12 Lateral epicondylitis, left elbow; M11.29 Other chondrocalcinosis, multiple sites; M54.16 Radiculopathy, lumbar region; M47.812 Spondylosis without myelopathy or radiculopathy, cervical region; M47.816 Spondylosis without myelopathy or radiculopathy, lumbar region; K21.9 Gastro-esophageal reflux disease without esophagitis; K22.70 Barrett's esophagus without dysplasia; S82.832A Other fracture of upper and lower end of left fibula, initial encounter for closed fracture; X58.XXXA Exposure to other specified factors, initial encounter | CPT/HCPCS: 36415; 80076; 82565; 85025; 85651; 86140; 86480; 86704; 86803; 87340; 99214 ==

== ENCOUNTER 2023-10-09 08:59 | Emergency (ER) | payer MEDICARE, SELFPAY ==
[2023-10-09] VITALS (8 sets, daily range): BP systolic 130–185; BP diastolic 89–117; PULSE 62–66; RESP 10–18; TEMP 36.8; O2SAT 97; BMI 30.7
--- NOTE | 2023-10-09 09:12 | ED_ITS ---
HPI - Recheck/Abnormal Lab/Rx 2 General: Chief Complaint: Recheck/Abnormal Lab/Rx Stated Complaint: HTN Time Seen by Provider: 10/09/23 09:02 Source: patient and EMS Mode of arrival: EMS Limitations: no limitations History of Present Illness: 62-year-old male who states he is a hist ory of hypertension he states that his PCP just increase his losartan to 100 mg yesterday states he had appointments morning at [facility] to take his blood pressure it was elevated. Patient was sent here by EMS for his hypertension. Patient has no complaints currently denies headache denies chest pain Related Data Home Medications Medication Instructions Recorded Confirmed hydrocodone 10 mg-acetaminophen 1 tab PO QID PRN Pain 05/27/19 08/22/23 325 mg tablet pantoprazole 40 mg tablet,delayed 40 mg PO BEDTIME PRN Stomach Upset 01/31/21 08/22/23 release Lactobacillus acidophilus 10 mg PO DAILY 04/26/21 08/22/23 (Acidophilus capsule) aspirin 81 mg capsule 81 mg PO DAILY 11/10/21 08/22/23 metoprolol succinate PO 08/13/23 08/22/23 Previous Rx's Medication Instructions Recorded albuterol sulfate 90 mcg/actuation 1 inh inhalation Q6H PRN shortness 02/01/21 aerosol inhaler (ProAir HFA) of breath or wheezing #6.7 grams leflunomide 20 mg tablet 20 mg PO DAILY #90 tabs 08/13/23 tofacitinib 5 mg tablet (Xeljanz) See Rx Instructions .Route 08/13/23 .COMPLEX #60 tabs paroxetine HCl 20 mg tablet (Paxil) 20 mg PO DAILY #30 tabs 08/20/23 trazodone 50 mg tablet 50 mg PO BEDTIME PRN Sleep 30 days 08/21/23 #30 tabs lorazepam 0.5 mg tablet (Ativan) 0.5 mg PO TID PRN anxiety #90 tabs 08/22/23 prednisone 20 mg tablet See Rx Instructions PO .COMPLEX 09/11/23 PRN joint pain flare #30 tabs Allergies Allergy/AdvReac Type Severity Reaction Status Date / Time No Known Allergies Allergy Verified 08/22/23 08:30 Review of Systems 2 Const: Denies: fever(s), chills, body aches or change in appetite ENMT: Denies: throat pain or dental pain Card: Denies: chest pain Resp: Denies: dyspnea GI: Denies: abdominal pain, nausea, vomiting or diarrhea Musc: Denies: neck pain or back pain Skin/Breast: Denies: rash Neuro: Denies: headache(s) PFSH ED 2 PFSH: Medical History Generalized anxiety disorder Major depressive disorder, recurrent, mild Adjustment disorder with disturbance of conduct Psychiatric care Cardiomyopathy COPD (chronic obstructive pulmonary disease) Hypoxia Fever Dyspnea Immunization counseling High risk medication use Current chronic use of systemic steroids GERD (gastroesophageal reflux disease) Lumbosacral spondylosis with radiculopathy Cervical spondylosis Immunosuppression Posterior tibial tendon dysfunction, bilateral Psoriasis Fibromyalgia Psoriatic arthritis Surgical History Hx of hemorrhoidectomy History of appendectomy History of ear, nose, and throat (ENT) surgery History of repair of anterior cruciate ligament of right knee Family History Denies family history of Diabetes Cancer Stroke Social History Smoking and tobacco/nicotine status: former use of tobacco/nicotine Alcohol intake: never Substance/Drug Use: never Lives independently: No Household members: spouse Marital status: Current occupational status: disabled Physical Exam 2 Const: COMMON NORMALS: no acute distress, patient oriented x3 and healthy appearing HENMT: COMMON NORMALS: normocephalic and atraumatic HEAD & SCALP: n ormocephalic and atraumatic Eye: COMMON NORMALS: conjunctivae normal CONJUNCTIVA: Yes conjunctivae normal Neck/C-Spine: COMMON NORMALS: full ROM and supple Chest: COMMONS NORMALS: normal inspection of the chest and normal palpation of entire chest wall Resp: COMMON NORMALS: normal respiratory effort, No retractions, No use of accessory muscles and clear to auscultation bilaterally AUSCULTATION: clear to auscultation bilaterally Cardio: COMMON NORMALS: regular rate, regular rhythm and No murmurs present (Cardio) RATE: regular rate RHYTHM: regular rhythm GI: COMMON NORMALS: Normal to inspection, nondistended, normoactive bowel sounds present, Soft to palpation, non-tender and no masses PALPATION: Yes Soft to palpation Extremity: COMMON NORMALS: normal to inspection and full ROM Neuro: COMMON NORMALS: patient oriented x3, moves all extremities and no focal motor deficits Psych: COMMON NORMALS: mental status grossly normal, Normal thought process present and cooperative THOUGHT PROCESS: Normal thought process present Skin: COMMON NORMALS: no rashes or lesions noted and no wounds GENERAL SKIN EXAM: no rashes or lesions noted Course 2 Vital Signs: Vital signs: Vital Signs Temperature 98.3 F 10/09/23 09:04 Pulse Rate 66 10/09/23 09:45 Respiratory Rate 17 10/09/23 09:45 Blood Pressure 154/115 10/09/23 09:45 Pulse Oximetry 97 10/09/23 09:45 Oxygen Delivery Me thod Room Air 10/09/23 09:45 MDM - Recheck/Abnormal Lab/Rx Medical Decision Making Patient presents here with hypertension he is asymptomatic blood works normal blood pressure here is improving just recently increased his blood pressure meds yesterday he is continue to take a log to follow-up with PCP in a week return if worsening he understands agrees to plan Medical Records I reviewed the patient's medical records. Lab Data I reviewed the patient's lab results. 10/09/23 09:18 10/09/23 09:18 Laboratory Results WBC 5.96 10^3/uL (3.29-11.43) 10/09/23 09:18 RBC 3.88 10^6/uL (3.85-5.65) 10/09/23 09:18 Hgb 12.10 g/dL (11.27-16.99) 10/09/23 09:18 Hct 37.9 % (37-53) 10/09/23 09:18 MCV 97.7 fl (82-101) 10/09/23 09:18 MCH 31.2 pg (27-33) 10/09/23 09:18 MCHC 31.9 g/dL (30-55) 10/09/23 09:18 RDW 14.5 % (12.1-15.1) 10/09/23 09:18 Plt Count 259 10^3/cmm (157-399) 10/09/23 09:18 MPV 9.6 fL (7.4-10.4) 10/09/23 09:18 Neut % (Auto) 54.8 % 10/09/23 09:18 Lymph % (Auto) 26.7 % 10/09/23 09:18 [place] % (Auto) 11.1 % 10/09/23 09:18 Eos % (Auto) 5.4 % 10/09/23 09:18 Baso % (Auto) 0.5 % 10/09/23 09:18 Neut # (Auto) 3.27 10^3/uL (1.8-7.7) 10/09/23 09:18 Lymph # (Auto) 1.6 10^3/uL (0.8-4.8) 10/09/23 09:18 [place] # (Auto) 0.7 10^3/uL (0.2-0.9) 10/09/23 09:18 Eos # (Auto) 0.3 10^3/uL (0.0-0.8) 10/09/23 09:18 Baso # (Auto) 0.0 10^3/uL (0.0-0.1) 10/09/23 09:18 Nucleated RBC % (auto) 0 % 10/09/23 09:18 Nucleated RBCs # 0.0 /100WBC 10/09/23 09:18 Sodium 139 mmol/L (136-145) 10/09/23 09:18 Potassium 4.1 mmol/L (3.5-5.1) 10/09/23 09:18 Chloride 103 mmol/L (98-107) 10/09/23 09:18 Carbon Dioxide 25 mmol/L (22-29) 10/09/23 09:18 Anion Gap 15.1 (5-19) 10/09/23 09:18 BUN 20 mg/dL (8-23) 10/09/23 09:18 Creatinine 0.9 mg/dL (0.7-1.2) 10/09/23 09:18 GFR Calculation 85.0 mL/min (90-130) L 10/09/23 09:18 Glucose 101 mg/dL (65-115) 10/09/23 09:18 Calculated Osmolality 291 mOsm/kg (285-295) 10/09/23 09:18 Calcium 8.8 mg/dL (8.5-10.5) 10/09/23 09:18 Total Bilirubin 0.3 mg/dL (0.15-1.2) 10/09/23 09:18 AST 16 U/L (0-40) 10/09/23 09:18 ALT 16 U/L (0-41) 10/09/23 09:18 Alkaline Phosphatase 43 U/L (40-130) 10/09/23 09:18 Total Protein 6.4 g/dL (6.6-8.7) L 10/09/23 09:18 Albumin 4.0 g/dL (3.5-5.2) 10/09/23 09:18 Globulin 2.4 g/dL (1.3-4.6) 10/09/23 09:18 All radiology interpretation(s) finalized by discharge EKG Data EKG 1: I personally reviewed and interpreted this EKG as follows: EKG interpretation date: 10/09/23 EKG interpretation time: 09:04 Interpretation: nsr hr [address] or t wave abnormalities qrs 108 qtc 415 Discharge Plan Discharge Patient Disposition: Home Clinical Impression: Hypertension Condition: Stable Prescriptions: No Action hydrocodone-acetaminophen 10-325 mg tablet 1 tab PO QID PRN (Reason: Pain) leflunomide 20 mg tablet 20 mg PO DAILY Qty: 90 1RF Xeljanz 5 mg tablet See Rx Instructions .ROUTE .COMPLEX Qty: 60 5RF Dose Instruction: TAKE ONE TABLET BY MOUTH TWICE DAILY Rx Instructions: TAKE ONE TABLET BY MOUTH TWICE DAILY metoprolol succinate PO lorazepam [Ativan] 0.5 mg tablet 0.5 mg PO TID PRN (Reason: anxiety) Qty: 90 1RF paroxetine HCl [Paxil] 20 mg tablet 20 mg PO DAILY Qty: 30 2RF trazodone 50 mg tablet 50 mg PO BEDTIME PRN (Reason: Sleep) 30 Days Qty: 30 2RF prednisone 20 mg tablet See Rx Instructions PO .COMPLEX PRN (Reason: joint pain flare) Qty: 30 1RF Rx Instructions: take 1 daily for 3-7 days PRN joint pain flare PO PRN; pantoprazole 40 mg tablet,delayed release (DR/EC) 40 mg PO BEDTIME PRN (Reason: Stomach Upset) albuterol sulfate [ProAir HFA] 90 mcg/actuation HFA aerosol inhaler 1 inh inhalation Q6H PRN (Reason: shortness of breath or wheezing) Qty: 6.7 1RF Acidophilus Capsule 10 mg PO DAILY aspirin 81 mg Capsule 81 mg PO DAILY Discharge Orders: Discharge ED (Routine); Ordered 10/09/23 Ordered By: Naz Benavidez Referrals: Dameon Perrin DO [Primary Care Provider] - Discharge Diet: Advance as tolerated Discharge Activity: Resume usual activity Patient Instructions: Hypertension (ED) Coding Level of Care Code ED Chief Executive Or Managing Director for Adrienne Webster
--- NOTE | 2023-10-09 09:18 | ECG_ITS ---
[facility] Test Date: 2023-10-09 Pat Name: Jame Ross Department: Room: Gender: Male [employer] Technician: : 1960 Requested By: Naz Benavidez Order Number: [id number] Caty MD: Davis Negron M.D. Measurements Intervals [place] Rate: 63 P: 46 [place]: 160 QRS: -5 QRSD: 90 T: 7 QT: 381 QTc: 390 Interpretive Statements SINUS RHYTHM WITH OCCASIONAL SUPRAVENTRICULAR PREMATURE COMPLEXES SEPTAL MYOCARDIAL INFARCTION , PROBABLY OLD [40+ ms Q WAVE IN V1/V2] Compared to ECG 11/10/2021 08:44:36 Myocardial infarct finding now present Sinus tachycardia no longer present Electronically Signed On 10-09-2023 11:00:18 CDT by Davis Negron M.D. [id number]
[2023-10-09 09:23] LABS: Basophils % 0.5 %; Eosinophils # 0.3 10^3/uL (0.0-0.8); Eosinophils % 5.4 %; Hematocrit 37.9 % (37-53); Lymphocytes # 1.6 10^3/uL (0.8-4.8); Lymphocytes % 26.7 %; Mean Corpuscular HGB Conc 31.9 g/dL (30-55); Mean Corpuscular Hemoglobin 31.2 pg (27-33); Mean Corpuscular Volume 97.7 fl (82-101); Mean Platelet Volume 9.6 fL (7.4-10.4); Monocytes # 0.7 10^3/uL (0.2-0.9); Monocytes % 11.1 %; Neutrophils # 3.27 10^3/uL (1.8-7.7); Neutrophils % 54.8 %; Nucleated Red Blood Cells % 0 %; Platelet Count 259 10^3/cmm (157-399); Red Blood Count 3.88 10^6/uL (3.85-5.65); Red Cell Distribution Width 14.5 % (12.1-15.1); White Blood Count 5.96 10^3/uL (3.29-11.43)
[2023-10-09] MEDS: hyDRALAzine 20 mg/mL INJ 1 mL 10 MG IVP (09:23)
[2023-10-09 10:04] LABS: Alanine Aminotransferase 16 U/L (0-41); Alkaline Phosphatase 43 U/L (40-130); Anion Gap 15.1 (5-19); Aspartate Amino Transferase 16 U/L (0-40); Blood Urea Nitrogen 20 mg/dL (8-23); Calcium 8.8 mg/dL (8.5-10.5); Carbon Dioxide 25 mmol/L (22-29); Chloride 103 mmol/L (98-107); Creatinine Clr Calc Pharmacy 82.6453; Globulin 2.4 g/dL (1.3-4.6); Glucose 101 mg/dL (65-115); Osmolality Calculated 291 mOsm/kg (285-295); Potassium 4.1 mmol/L (3.5-5.1); Sodium 139 mmol/L (136-145); Total Bilirubin 0.3 mg/dL (0.15-1.2); Total Protein 6.4 g/dL (6.6-8.7)
== END 2023-10-09 10:20 | disposition home or self-care (01) ==
PROVIDERS: Emergency Provider Emergency Medicine; PCP Internal Medicine
DX: I10 Essential (primary) hypertension (principal); Z79.82 Long term (current) use of aspirin; Z87.891 Personal history of nicotine dependence; J44.9 Chronic obstructive pulmonary disease, unspecified
CPT/HCPCS: 36415; 80053; 85025; 93005; 96374; 99284; J0360

== ENCOUNTER 2023-10-16 06:48 | Emergency (ER) | payer MEDICARE, SELFPAY ==
[2023-10-16] VITALS (9 sets, daily range): BP systolic 134–181; BP diastolic 84–119; PULSE 67–72; RESP 10–18; TEMP 36.8; O2SAT 95–97; BMI 30.7
--- NOTE | 2023-10-16 06:58 | ECG_ITS ---
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 Measurements Intervals [place] Rate: 65 P: 53 IN: 157 QRS: 1 QRSD: 96 T: 15 QT: 370 QTc: 387 Interpretive Statements SINUS RHYTHM Compared to ECG 10/09/2023 09:18:59 Myocardial infarct finding no longer present Electronically Signed On 10-16-2023 16:41:45 CDT by Davis Negron M.D. [id number]
--- NOTE | 2023-10-16 06:58 | XR_ITS ---
WS: [id number] Examination: XR chest 1V portable [id number] Reason for Exam: dyspnea/cough Date: October 16, 2023 Comparison: April 26, 2021 Findings: The cardiomediastinal silhouette is within normal limits. There is no evidence of pulmonary edema or pleural effusion. XR/XR chest 1V portable [id number] IMPRESSION: No acute lung process is seen.
--- NOTE | 2023-10-16 06:59 | W.ED.CHESTPA ---
HPI - Chest Pain General: Chief Complaint: Chest Pain Stated Complaint: Chest Pain, blood pressure 201/120 at home Time Seen by Provider: 10/16/23 06:58 History of Present Illness: 62-year-old male with history of hypertension presents emergency room complaining elevated blood pressure and left lower chest pain. He states he had chest pain all through the summer. He had a cardiac cath in April or 2021 which showed 20% lesion and left main but no other coronary artery disease. He was seen 2 weeks ago in the emergency room and around that time they added metoprolol to the losartan he was currently taking he is still taking both of those he did take his blood pressure medicines this morning. He had a brief episode of chest pain that lasted a few seconds this morning followed up he is not having any chest pain now. No shortness of breath no diaphoresis chest pain is in the left side of the chest that does not radiate Associated symptoms: Deny abdominal pain, dyspnea or fever(s) Related Data Home Medications Medication Instructions Recorded Confirmed hydrocodone 10 mg-acetaminophen 1 tab PO QID PRN Pain 05/27/19 08/22/23 325 mg tablet pantoprazole 40 mg tablet,delayed 40 mg PO BEDTIME PRN Stomach Upset 01/31/21 08/22/23 release Lactobacillus acidophilus 10 mg PO DAILY 04/26/21 08/22/23 (Acidophilus capsule) aspirin 81 mg capsule 81 mg PO DAILY 11/10/21 08/22/23 metoprolol succinate PO 08/13/23 08/22/23 Previous Rx's Medication Instructions Recorded albuterol sulfate 90 mcg/actuation 1 inh inhalation Q6H PRN shortness 02/01/21 aerosol inhaler (ProAir HFA) of breath or wheezing #6.7 grams leflunomide 20 mg tablet 20 mg PO DAILY #90 tabs 08/13/23 tofacitinib 5 mg tablet (Xeljanz) See Rx Instructions .Route 08/13/23 .COMPLEX #60 tabs paroxetine HCl 20 mg tablet (Paxil) 20 mg PO DAILY #30 tabs 08/20/23 trazodone 50 mg tablet 50 mg PO BEDTIME PRN Sleep 30 days 08/21/23 #30 tabs lorazepam 0.5 mg tablet (Ativan) 0.5 mg PO TID PRN anxiety #90 tabs 08/22/23 prednisone 20 mg tablet See Rx Instructions PO .COMPLEX 09/11/23 PRN joint pain flare #30 tabs amlodipine 5 mg tablet 5 mg PO DAILY #30 tabs 10/16/23 Allergies Allergy/AdvReac Type Severity Reaction Status Date / Time No Known Allergies Allergy Verified 10/16/23 07:03 Review of Systems Const: Denies: fever(s) or chills Card: Reports: chest pain Resp: Denies: dyspnea GI: Denies: abdominal pain : Denies: dysuria, urinary frequency or urinary urgency Musc: Denies: neck pain or back pain Skin/Breast: Denies: rash PFSH ED PFSH: Medical History Generalized anxiety disorder Major depressive disorder, recurrent, mild Adjustment disorder with disturbance of conduct Psychiatric care Cardiomyopathy COPD (chronic obstructive pulmonary disease) Hypoxia Fever Dyspnea Immunization counseling High risk medication use Current chronic use of systemic steroids GERD (gastroesophageal reflux disease) Lumbosacral spondylosis with radiculopathy Cervical spondylosis Immunosuppression Posterior tibial tendon dysfunction, bilateral Psoriasis Fibromyalgia Psoriatic arthritis Surgical History Hx of hemorrhoidectomy History of appendectomy History of ear, nose, and throat (ENT) surgery History of repair of anterior cruciate ligament of right knee Family History Denies family history of Diabetes Cancer Stroke Social History Smoking and tobacco/nicotine status: former use of tobacco/nicotine Alcohol intake: never Substance/Drug Use: never Lives independently: No Household members: spouse Marital status: Current occupational status: disabled Physical Exam Const: GENERAL APPEARANCE: cooperative ORIENTATION/CONSCIOUSNESS: Yes awake, Yes oriented to person, Yes oriented to place and Yes oriented to time HENMT: COMMON NORMALS: normocephalic, atraumatic and hearing grossly normal bilaterally HEAD & SCALP: normocephalic and atraumatic Resp: COMMON NORMALS: normal respiratory effort, No retractions, No use of accessory muscles and clear to auscultation bilaterally AUSCULTATION: clear to auscultation bilaterally Cardio: COMMON NORMALS: regular rate, regular rhythm and No murmurs present (Cardio) RATE: regular rate RHYTHM: regular rhythm GI: COMMON NORMALS: Soft to palpation and No hepatosplenomegaly present AUSCULTATION: Yes normoactive bowel sounds PALPATION: Yes Soft to palpation, No Tenderness to palpation present (GI), No Guarding due to palpation present (GI) and Yes No hepatosplenomegaly present Extremity: COMMON NORMALS: normal to inspection, capillary refill normal, no clubbing, cyanosis or edema, no calf tenderness and no pedal edema Neuro: SENSORIUM/ORIENTATION: Yes oriented to person, Yes oriented to place and Yes oriented to time Skin: COMMON NORMALS: no rashes or lesions noted GENERAL SKIN EXAM: no rashes or lesions noted Course Vital Signs: Vital signs: Vital Signs Temperature 98.2 F 10/16/23 07:53 Pulse Rate 69 10/16/23 09:45 Respiratory Rate 16 10/16/23 09:45 Blood Pressure 150/87 10/16/23 09:45 Pulse Oximetry 97 10/16/23 09:45 Oxygen Delivery Me thod Room Air 10/16/23 08:44 MDM - Chest Pain Medical Decision Making Labs and imaging reviewed EKG does not show any acute changes cardiac enzymes trending normal. Discharge patient home add amlodipine continue his other medications recommend he take amlodipine at night beginning this evening. His hemoglobin had gone down. Patient went from 12.1 on 10 08-10.9 today. He has not had any hematemesis coffee-ground emesis or any other signs of bleeding. He has had an EGD within the last year and had colonoscopy within the last 2 to 3 years. He did have some polyps removed and this. Another colonoscopy in 2 years scheduled. Last year he had a transient drop in his hemoglobin got down as low as 9.8. He is not symptomatic at this point think he is can continue to be watched as an outpatient he should see his primary care doctor to repeat hemoglobin and recheck his blood pressure within the next week he does have appointment Dr. Gibson within a week. Return to the ER if he has any signs of bleeding bright red blood per rectum or vomiting or coffee-ground emesis or dark stool. Continue to monitor blood pressure and take some blood pressure readings to his next doctor's appointment to review. Medical Records I reviewed the patient's medical records. Lab Data I reviewed the patient's lab results. 10/16/23 07:00 10/16/23 07:00 Radiology Impressions Chest X-Ray 10/16/23 06:58 IMPRESSION: No acute lung process is seen. Laboratory Results WBC 5.71 10^3/uL (3.29-11.43) 10/16/23 07:00 RBC 3.51 10^6/uL (3.85-5.65) L 10/16/23 07:00 Hgb 10.90 g/dL (11.27-16.99) L 10/16/23 07:00 Hct 34.2 % (37-53) L 10/16/23 07:00 MCV 97.4 fl (82-101) 10/16/23 07:00 MCH 31.1 pg (27-33) 10/16/23 07:00 MCHC 31.9 g/dL (30-55) 10/16/23 07:00 RDW 14.4 % (12.1-15.1) 10/16/23 07:00 Plt Count 210 10^3/cmm (157-399) 10/16/23 07:00 MPV 9.8 fL (7.4-10.4) 10/16/23 07:00 Neut % (Auto) 54.8 % 10/16/23 07:00 Lymph % (Auto) 27.0 % 10/16/23 07:00 [place] % (Auto) 11.2 % 10/16/23 07:00 Eos % (Auto) 5.8 % 10/16/23 07:00 Baso % (Auto) 0.5 % 10/16/23 07:00 Neut # (Auto) 3.13 10^3/uL (1.8-7.7) 10/16/23 07:00 Lymph # (Auto) 1.5 10^3/uL (0.8-4.8) 10/16/23 07:00 [place] # (Auto) 0.6 10^3/uL (0.2-0.9) 10/16/23 07:00 Eos # (Auto) 0.3 10^3/uL (0.0-0.8) 10/16/23 07:00 Baso # (Auto) 0.0 10^3/uL (0.0-0.1) 10/16/23 07:00 Nucleated RBC % (auto) 0 % 10/16/23 07:00 Nucleated RBCs # 0.0 /100WBC 10/16/23 07:00 Sodium 139 mmol/L (136-145) 10/16/23 07:00 Potassium 3.7 mmol/L (3.5-5.1) 10/16/23 07:00 Chloride 103 mmol/L (98-107) 10/16/23 07:00 Carbon Dioxide 24 mmol/L (22-29) 10/16/23 07:00 Anion Gap 15.7 (5-19) 10/16/23 07:00 BUN 16 mg/dL (8-23) 10/16/23 07:00 Creatinine 0.9 mg/dL (0.7-1.2) 10/16/23 07:00 GFR Calculation 85.0 mL/min (90-130) L 10/16/23 07:00 Glucose 103 mg/dL (65-115) 10/16/23 07:00 Calculated Osmolality 289 mOsm/kg (285-295) 10/16/23 07:00 Calcium 8.2 mg/dL (8.5-10.5) L 10/16/23 07:00 Total Bilirubin 0.5 mg/dL (0.15-1.2) 10/16/23 07:00 AST 13 U/L (0-40) 10/16/23 07:00 ALT 13 U/L (0-41) 10/16/23 07:00 Alkaline Phosphatase 39 U/L (40-130) L 10/16/23 07:00 Troponin T Baseline 20 ng/L (0-15) H 10/16/23 07:00 Troponin T 120 Minute 17.08 ng/L (0-15) H 10/16/23 08:39 Delta Troponin T -2.92 ABS# (0-10) L 10/16/23 08:39 Total Protein 6.0 g/dL (6.6-8.7) L 10/16/23 07:00 Albumin 3.9 g/dL (3.5-5.2) 10/16/23 07:00 Globulin 2.1 g/dL (1.3-4.6) 10/16/23 07:00 Urine Color Yellow (Yellow) 10/16/23 07:37 Urine Appearance Clear (CLEAR) 10/16/23 07:37 Urine pH 6.5 (5-7) 10/16/23 07:37 Ur Specific [place] 1.019 (1.005-1.030) 10/16/23 07:37 Urine Protein Negative (Negative) 10/16/23 07:37 Urine Glucose (UA) Negative (Normal) 10/16/23 07:37 Urine Ketones Negative (Negative) 10/16/23 07:37 Urine Blood Negative (Negative) 10/16/23 07:37 Urine Nitrate Negative (Negative) 10/16/23 07:37 Urine Bilirubin Negative (Negative) 10/16/23 07:37 Urine Urobilinogen 1.0 mg/dL (Negative) 10/16/23 07:37 Ur Leukocyte Esterase Negative (Negative) 10/16/23 07:37 Amorphous Sediment Not Reportable 10/16/23 07:37 All radiology interpretation(s) finalized by discharge EKG Data EKG 1: Interpretation: 10/16/2023 6:54 A Normal sinus rhythm rate of 65. IL interval 157 QTc 382. Normal axis no acute ST changes noted no T wave inversions EKG 2: Interpretation: 10/16/2023 8:56 AM normal sinus rhythm rate of 65 [place] interval 165 QT 386. No acute ST changes unchanged from previous EKG Discharge Plan Discharge Patient Disposition: Home Clinical Impression: HTN (hypertension), Anemia Condition: Stable Prescriptions: New amlodipine 5 mg tablet 5 mg PO DAILY Qty: 30 0RF No Action hydrocodone-acetaminophen 10-325 mg tablet 1 tab PO QID PRN (Reason: Pain) leflunomide 20 mg tablet 20 mg PO DAILY Qty: 90 1RF Xeljanz 5 mg tablet See Rx Instructions .ROUTE .COMPLEX Qty: 60 5RF Dose Instruction: TAKE ONE TABLET BY MOUTH TWICE DAILY Rx Instructions: TAKE ONE TABLET BY MOUTH TWICE DAILY metoprolol succinate PO lorazepam [Ativan] 0.5 mg tablet 0.5 mg PO TID PRN (Reason: anxiety) Qty: 90 1RF paroxetine HCl [Paxil] 20 mg tablet 20 mg PO DAILY Qty: 30 2RF trazodone 50 mg tablet 50 mg PO BEDTIME PRN (Reason: Sleep) 30 Days Qty: 30 2RF prednisone 20 mg tablet See Rx Instructions PO .COMPLEX PRN (Reason: joint pain flare) Qty: 30 1RF Rx Instructions: take 1 daily for 3-7 days PRN joint pain flare PO PRN; pantoprazole 40 mg tablet,delayed release (DR/EC) 40 mg PO BEDTIME PRN (Reason: Stomach Upset) albuterol sulfate [ProAir HFA] 90 mcg/actuation HFA aerosol inhaler 1 inh inhalation Q6H PRN (Reason: shortness of breath or wheezing) Qty: 6.7 1RF Acidophilus Capsule 10 mg PO DAILY aspirin 81 mg Capsule 81 mg PO DAILY Discharge Orders: Discharge ED (Routine); Ordered 10/16/23 Ordered By: Favio Owens Referrals: Dameon Perrin, [Primary Care Provider] - Discharge Diet: Usual diet Discharge Activity: Resume usual activity Patient Instructions: Opioid Safety, Pain Management Activity Restrictions/Additional Instructions: Thank you for choosing [facility] for your healthcare needs today. It is very important that you follow up as instructed or that you return to the Emergency Department should you have concerns or if your condition changes or worsens in any way. You were seen today in the emergency room for elevated blood pressure and chest discomfort. Your EKGs and cardiac enzymes were negative. Your blood pressure did respond well to the medications given. Continue all of your current medications and add amlodipine 5 mg once a day at night recommend starting that this evening. We also noted your hemoglobin had decreased to slightly. You should follow-up with this with your primary care doctor within the next 1 to 2 weeks. Additionally you should see your primary care to reevaluate your blood pressure in that same timeframe. Since you had recent EGDs and relatively recent colonoscopies this may only need to be monitored. Your primary care doctor and review with you what further treatment recommendations might be needed for both your blood pressure and for monitoring your blood counts for anemia. Coding Level of Care Code ED Mud Tank Operator for Adrienne Webster
[2023-10-16 07:09] LABS: Basophils % 0.5 %; Eosinophils # 0.3 10^3/uL (0.0-0.8); Eosinophils % 5.8 %; Hematocrit 34.2 % (37-53); Lymphocytes # 1.5 10^3/uL (0.8-4.8); Mean Corpuscular HGB Conc 31.9 g/dL (30-55); Mean Corpuscular Hemoglobin 31.1 pg (27-33); Mean Corpuscular Volume 97.4 fl (82-101); Mean Platelet Volume 9.8 fL (7.4-10.4); Monocytes # 0.6 10^3/uL (0.2-0.9); Monocytes % 11.2 %; Neutrophils # 3.13 10^3/uL (1.8-7.7); Neutrophils % 54.8 %; Nucleated Red Blood Cells % 0 %; Platelet Count 210 10^3/cmm (157-399); Red Blood Count 3.51 10^6/uL (3.85-5.65); Red Cell Distribution Width 14.4 % (12.1-15.1); White Blood Count 5.71 10^3/uL (3.29-11.43)
[2023-10-16] MEDS: hyDRALAzine 20 mg/mL INJ 1 mL 10 MG IVP (07:19)
[2023-10-16 07:30] LABS: Alanine Aminotransferase 13 U/L (0-41); Albumin Level 3.9 g/dL (3.5-5.2); Alkaline Phosphatase 39 U/L (40-130); Anion Gap 15.7 (5-19); Aspartate Amino Transferase 13 U/L (0-40); Blood Urea Nitrogen 16 mg/dL (8-23); Calcium 8.2 mg/dL (8.5-10.5); Carbon Dioxide 24 mmol/L (22-29); Chloride 103 mmol/L (98-107); Creatinine Clr Calc Pharmacy 82.6453; Globulin 2.1 g/dL (1.3-4.6); Glucose 103 mg/dL (65-115); Osmolality Calculated 289 mOsm/kg (285-295); Potassium 3.7 mmol/L (3.5-5.1); Sodium 139 mmol/L (136-145); Total Bilirubin 0.5 mg/dL (0.15-1.2); Troponin(5th) Baseline 20 ng/L (0-15)
[2023-10-16] MEDS: aspirin 81 mg Chew Tablet 324 MG PO (07:35)
[2023-10-16 07:53] LABS: Charge for UA Resulting for Rev
[2023-10-16 07:58] LABS: Bilirubin Urine Negative (Negative); Blood Urine Negative (Negative); Glucose Urine UA Negative (Normal); Ketones Urine Negative (Negative); Leukocyte Esterase Urine Negative (Negative); Nitrate Urine Negative (Negative); Protein Urine Negative (Negative); Specific Gravity, Urine 1.019 (1.005-1.030); Urine Appearance Clear (CLEAR); Urine Color Yellow (Yellow); pH Urine 6.5 (5-7)
--- NOTE | 2023-10-16 08:58 | ECG_ITS ---
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 Measurements Intervals [place] Rate: 65 P: 53 VT: 165 QRS: 2 QRSD: 98 T: 15 QT: 386 QTc: 404 Interpretive Statements SINUS RHYTHM WITH OCCASIONAL SUPRAVENTRICULAR PREMATURE COMPLEXES Compared to ECG 10/16/2023 06:54:36 No significant changes Electronically Signed On 10-16-2023 16:45:25 CDT by Davis Negron M.D. [id number]
[2023-10-16 09:05] LABS: Troponin 5 2HR 17.08 ng/L (0-15)
[2023-10-16 09:07] LABS: Troponin 5 2HR Delta -2.92 ABS# (0-10)
== END 2023-10-16 09:36 | disposition home or self-care (01) ==
PROVIDERS: Emergency Provider Family Medicine; PCP Internal Medicine
DX: I10 Essential (primary) hypertension (principal); D64.9 Anemia, unspecified; Z79.82 Long term (current) use of aspirin; Z87.891 Personal history of nicotine dependence; J44.9 Chronic obstructive pulmonary disease, unspecified; I42.9 Cardiomyopathy, unspecified
CPT/HCPCS: 36415; 71045; 80053; 81003; 81015; 84484; 85025; 93005; 96374; 99285; J0360

== ENCOUNTER 2023-11-05 14:52 | Outpatient (CLI) | payer MEDICARE, SELFPAY ==
--- NOTE | 2023-11-05 14:54 | CT_ITS ---
WS: [id number] CT ABDOMEN AND PELVIS WITH AND WITHOUT CONTRAST HISTORY: RENAL MASS TECHNIQUE: Unenhanced 3 mm axial imaging first performed through the abdomen. Post contrast imaging t hrough the abdomen and pelvis. Oral contrast has not been provided. Sagittal and coronal reformats a re submitted. All CT scans at [facility] use at least one of these dose optimization techniqu es: automated exposure control; mA and/or kV adjustment per patient size (includes targeted exams whe re dose is matched to clinical indication); or iterative reconstruction. CONTRAST: Omnipaque 350; 95 mL IV. DLP: 1918.30 mGy.cm COMPARISON: Renal ultrasound 10/17/2023 Lung bases are clear. Normal size heart. Small hiatal hernia. RIGHT kidney: 10.5 cm in length. Several low-attenuation masses are identified within the RIGHT kidne y. The largest from the superior pole measures 2.9 x 2.4 x 2.2 cm. Hounsfield units remain low throug hout all 3 phases. There is no enhancement. There is an additional exophytic cyst from the lateral ki dney measuring 1.5 x 1.4 x 1.0 cm which also does not enhance. There are a few additional smaller cys ts. There is no obstruction. Mild perinephric stranding. LEFT kidney: Normal size kidney measures 11.2 cm in length. Exophytic cyst from the medial superior p ole measures 1.6 x 1.7 x 1.6 cm and Hounsfield units do not increase after contrast. There are a few additional smaller low-attenuation masses which also do not enhance but are too small to completely c haracterize. There is no obstruction of the kidney. Hepatic cyst 10 x 12 mm. No bile duct dilatation within the liver. Normal portal vein. Contracted gal lbladder without adjacent inflammation. Normal spleen and pancreas. Mild atherosclerosis aorta. Mesen teric arteries are clear. Normal stomach. No small bowel obstruction. Mild constipation. Mild diverticular disease without acut e diverticulitis. Prior appendectomy. Normally distended urinary bladder. No filling defects. There is slight bladder wall thickening which is probably due to under distention or partial outlet obstruction. Moderate increase in the lumbar lordosis. L4 anterolisthesis by [address]/CT abdomen pelvis wo/w [id number] IMPRESSION: 1. Bilateral renal low-attenuation renal masses. None of these masses enhance to suggest renal cell neoplasm. 2. No mass in the urinary bladder. 3. Prior appendectomy. 4. Small hepatic cyst 10 x 12 mm. 5. Slightly contracted gallbladder probably due to nonfasting.
[2023-11-05] MEDS: iohexol 350 mg/mL 500 mL Btl (per mL) IV (15:43)
== END 2023-11-05 14:53 | disposition home or self-care (01) ==
LOC: RAD 14:52
PROVIDERS: PCP Internal Medicine; Visit Provider Internal Medicine
DX: N28.89 Other specified disorders of kidney and ureter (principal); K44.9 Diaphragmatic hernia without obstruction or gangrene; Q61.02 Congenital multiple renal cysts; K76.89 Other specified diseases of liver; K59.00 Constipation, unspecified; K57.90 Diverticulosis of intestine, part unspecified, without perforation or abscess without bleeding; Z98.890 Other specified postprocedural states
CPT/HCPCS: 74178

== ENCOUNTER → 2023-12-12 10:00 | Outpatient (BNVA) | payer MEDICARE, SELFPAY | PROVIDERS: PCP Internal Medicine; Visit Provider Internal Medicine Rheumatology | DX: Z79.899 Other long term (current) drug therapy (principal); Z71.89 Other specified counseling; L40.50 Arthropathic psoriasis, unspecified | CPT/HCPCS: 99214 ==

== ENCOUNTER → 2023-12-17 12:24 | Outpatient (BNVA) | payer MEDICARE, OTHER, SELFPAY | PROVIDERS: PCP Internal Medicine; Visit Provider Internal Medicine Cardiovascular Disease | DX: I48.91 Unspecified atrial fibrillation (principal); I11.9 Hypertensive heart disease without heart failure; R42 Dizziness and giddiness; E78.2 Mixed hyperlipidemia | CPT/HCPCS: 99214 ==

== ENCOUNTER 2023-12-17 13:52 | Outpatient (CLI) | payer OTHER, MEDICARE, SELFPAY ==
[2023-12-17 14:24] LABS: Basophils % 0.1 %; Hematocrit 36.2 % (37-53); Lymphocytes # 0.6 10^3/uL (0.8-4.8); Mean Corpuscular HGB Conc 32.6 g/dL (30-55); Mean Corpuscular Hemoglobin 31.7 pg (27-33); Mean Corpuscular Volume 97.3 fl (82-101); Monocytes # 0.3 10^3/uL (0.2-0.9); Monocytes % 3.6 %; Neutrophils # 5.88 10^3/uL (1.8-7.7); Neutrophils % 85.3 %; Nucleated Red Blood Cells % 0 %; Platelet Count 303 10^3/cmm (157-399); Red Blood Count 3.72 10^6/uL (3.85-5.65); Red Cell Distribution Width 14.1 % (12.1-15.1)
== END 2023-12-17 13:53 | disposition home or self-care (01) ==
LOC: LAB 13:57
PROVIDERS: PCP Internal Medicine; Visit Provider Internal Medicine Rheumatology
DX: Z79.899 Other long term (current) drug therapy (principal); L40.50 Arthropathic psoriasis, unspecified
CPT/HCPCS: 36415; 85025

== ENCOUNTER 2024-01-08 05:55 | Outpatient (CLI) | payer MEDICARE, OTHER, SELFPAY ==
--- NOTE | 2024-01-08 06:15 | USCV_ITS ---
Jame Ross Age: 63 Gender: M : 1960 Exam Date: 01/08/2024 06:17 Ordering Phys: Madi Esquivel MD ([email or web address]) Technologist: Exam Location: [facility] [place] Indication: afib cp BP: 143 / 93 HR: 65 Rhythm: Sinus Technical Quality: MEASUREMENTS (Male / Female) Normal Values 2D ECHO LV Diastolic Diameter PLAX 4.5 cm 4.2 - 5.9 / 3.9 - 5.3 cm IVS Diastolic Thickness 1.2 cm 0.6 - 1.0 / 0.6 - 0.9 cm IVS Systolic Thickness 1.7 cm LVPW Diastolic Thickness 1.3 cm 0.6 - 1.0 / 0.6 - 0.9 cm LVPW Systolic Thickness 1.8 cm LVOT Diameter 2.0 cm LV Ejection Fraction 2D Teich 63.1 % LV Ejection Fraction MOD 4C 70.4 % LV Ejection Fraction MOD 2C 63.2 % LV Ejection Fraction 2C AL 64.7 % LA Diameter 3.6 cm RA Systolic Volume 4C AL 48.0 ml RA Systolic Volume 4C MOD 44.6 ml Aorta at Sinotubular Diameter 3.2 cm IVC Diameter 2.5 cm M-MODE LA Ao Ratio MM 1.1 MV E Point Septal Separation 1.9 cm AV Cusp Separation MM 3.3 cm DOPPLER AV Peak Velocity 102.0 cm/s LVOT Peak Velocity 77.0 cm/s AV Area Cont Eq vti 3.2 cm squared AV Area Cont Eq pk 2.5 cm squared MV Peak Velocity 64.0 cm/s MV Area PHT 4.3 cm squared Mitral E to A Ratio 0.8 TV Peak Velocity 97.5 cm/s TR Peak Velocity 111.0 cm/s TR Peak Gradient 4.9 mmHg TV Peak E Velocity 56.0 cm/s PV Peak Velocity 85.0 cm/s FINDINGS Left Ventricle Normal left ventricular size, systolic function and wall thickness, with no regional wall motion abnormalities. Left ventricular ejection fraction is estimated at 60 %. Grade I/IV diastolic dysfunction (abnormal relaxation filling pattern), normal to mildly elevated filling pressures. Right Ventricle The right ventricle is normal in size and function. Right Atrium The right atrium is normal in size. Left Atrium Moderately increased left atrial size. Mitral Valve Moderately thickened mitral valve. No mitral valve stenosis. Trace mitral valve regurgitation. Aortic Valve Severe aortic valve calcification. No aortic valve stenosis. Trace aortic valve regurgitation. Tricuspid Valve Trace tricuspid valve regurgitation. Pulmonic Valve Structurally normal pulmonic valve without significant stenosis. There is no pulmonic regurgitation. Pericardium Normal pericardium without effusion. Aorta Normal ascending aorta dimension. IVC The inferior vena cava appears normal. CONCLUSIONS Normal left ventricular size, systolic function and wall thickness, with no regional wall motion abnormalities. Left ventricular ejection fraction is estimated at 60 %. Grade I/IV diastolic dysfunction (abnormal relaxation filling pattern), normal to mildly elevated filling pressures. Moderately increased left atrial size. Severe aortic valve calcification. No aortic valve stenosis. Trace aortic valve regurgitation. Moderately thickened mitral valve. No mitral valve stenosis. Trace mitral valve regurgitation. There is no pericardial effusion. Right atrial pressure is around 5 mm of mercury. aMdi Esquivel MD (Electronically Signed) Final Date: 09 January 2024 00:31 S
== END 2024-01-08 05:56 | disposition home or self-care (01) ==
PROVIDERS: PCP Internal Medicine; Visit Provider Internal Medicine Cardiovascular Disease
DX: I50.30 Unspecified diastolic (congestive) heart failure (principal); R55 Syncope and collapse; I48.91 Unspecified atrial fibrillation; I51.7 Cardiomegaly; I34.81 Nonrheumatic mitral (valve) annulus calcification; I70.0 Atherosclerosis of aorta
CPT/HCPCS: 93306

== ENCOUNTER → 2024-02-26 10:34 | Outpatient (BNVA) | payer MEDICARE, OTHER, SELFPAY | PROVIDERS: PCP Internal Medicine; Visit Provider Nurse Practitioner Family | DX: I11.9 Hypertensive heart disease without heart failure (principal); E78.2 Mixed hyperlipidemia; I48.91 Unspecified atrial fibrillation; Z79.01 Long term (current) use of anticoagulants; Z79.82 Long term (current) use of aspirin | CPT/HCPCS: 99213 ==

== ENCOUNTER → 2024-04-16 08:55 | Outpatient (BNVA) | payer MEDICARE, OTHER, SELFPAY | PROVIDERS: PCP Internal Medicine; Visit Provider Internal Medicine Rheumatology | DX: L40.50 Arthropathic psoriasis, unspecified (principal); Z79.899 Other long term (current) drug therapy; Z71.89 Other specified counseling | CPT/HCPCS: 36415; 80076; 82565; 85025; 85651; 86140; 99214 ==

== ENCOUNTER 2024-04-25 10:45 | Outpatient (CLI) | payer MEDICARE, OTHER, SELFPAY ==
--- NOTE | 2024-04-25 10:49 | USR_ITS ---
PROCEDURE INFORMATION: Exam: US Retroperitoneal, Complete, Kidneys and Bladder Exam date and time: 04/25/2024 11:18 AM Age: 63 years old Clinical indication: Condition or disease; Kidney or ureter condition; Cyst of kidney; Additional info: Simple renal cyst TECHNIQUE: Imaging protocol: Real-time ultrasound of the retroperitoneum with image documentation. Complete exam focused on the bilateral kidneys and urinary bladder. COMPARISON: US renal BI* [id number] 10/17/2023 12:02 PM FINDINGS: Right kidney: At least 3 visualized cysts in the right kidney. No right-sided hydronephrosis. The right kidney measures 10.1 x 5.6 x 5.2 cm. No right-sided nephrolithiasis. Left kidney: Left kidney measures 11.1 x 5.5 x 5.1 cm. At least 1 visualized cyst in the left kidney. No left-sided hydronephrosis. No left-sided nephrolithiasis. Urinary bladder: Urinary bladder appears unremarkable. US/US renal BI* [id number] IMPRESSION: As above.
== END 2024-04-25 10:46 | disposition home or self-care (01) ==
PROVIDERS: PCP Family Medicine; Visit Provider Internal Medicine
DX: N28.1 Cyst of kidney, acquired (principal)
CPT/HCPCS: 76770

== ENCOUNTER 2024-05-22 07:50 | Outpatient (CLI) | payer MEDICARE, OTHER, SELFPAY ==
--- NOTE | 2024-05-22 07:53 | CT_ITS ---
WS: [id number] CT chest w con* [id number] HISTORY: HEMOPTYSIS TECHNIQUE: Axial imaging performed through the thorax. Coronal and sagittal reformats are submitted. All CT scans at [facility] use at least one of these dose optimization techniques: automated exposure control; mA and/or kV adjustment per patient size (includes targeted exams where dose is matched to clinical indication); or iterative reconstruction. CONTRAST: Omnipaque 350; 100 mL IV. DLP: 434.25 mGy.cm COMPARISON: Chest radiograph 05/15/2024, chest CT 01/31/2021 Lungs and central airway: Focal consolidation in the lingula abutting the LEFT heart corresponds to the abnormality noted on recent chest radiograph. Area of consolidation measures 2.0 x 2.4 x 1.4 cm. There is extension to the pleura and a small amount of adjacent atelectasis and groundglass attenuation. Compared to the recent radiograph there has been an improvement in the area of consolidation. There is an additional 2.1 x 2.9 x 2.6 cm consolidation with central air along the medial RIGHT upper lobe abutting the mediastinum. There is a smaller adjacent slightly more inferior nodule towards the RIGHT mediastinum measuring 1.0 x 1.1 x 1.3 cm. Pleura: Normal. No pleural effusion. Heart and pericardium: Normal size heart with no pericardial effusion. Mediastinum and cristiana: Mildly prominent lymph nodes in the mediastinum. RIGHT paratracheal lymph node 1.3 cm. 0.7 cm lymph node LEFT hilum. Vessels: Mild atherosclerosis aorta. Normal size pulmonary artery. Chest wall and lower neck: No soft tissue masses. Upper abdomen: No adrenal mass. Bilateral cystic masses within each kidney. Osseous structures: Moderate increase in thoracic kyphosis. Mild anterior wedging of several mid thoracic vertebral bodies. CT/CT chest w con* [id number] IMPRESSION: 1. LEFT upper lobe/inguinal consolidation corresponds to the recent abnormalit y described on radiograph. There is less consolidation as compared to the radio graph. Residual opacification measures 2.0 x 2.4 x 1.4 cm. 2. Additional areas of consolidation along the medial RIGHT upper lobe abut th e mediastinum. Focus of air within the larger consolidation may be a cavitation . 3. With improvement in the lingular consolidation since 05/15/2024 recommend con tinued follow-up after treatment with antibiotics. Recommend short-term chest C T follow-up with IV contrast. If these opacifications do not improve PET/CT may be of benefit. Differential includes pneumonia, septic emboli and neoplasm. 4. Indeterminate RIGHT inferior paratracheal lymph node at 1.3 cm.
[2024-05-22] MEDS: iohexol 350 mg/mL 500 mL Btl (per mL) IV (08:31)
== END 2024-05-22 07:51 | disposition home or self-care (01) ==
LOC: RAD 07:52
PROVIDERS: PCP Family Medicine; Visit Provider Family Medicine
DX: R04.2 Hemoptysis (principal); R91.8 Other nonspecific abnormal finding of lung field; R59.0 Localized enlarged lymph nodes; I70.0 Atherosclerosis of aorta; N28.89 Other specified disorders of kidney and ureter; M40.294 Other kyphosis, thoracic region; M48.54XA Collapsed vertebra, not elsewhere classified, thoracic region, initial encounter for fracture
CPT/HCPCS: 71260

== ENCOUNTER → 2024-05-26 14:36 | Outpatient (BNVA) | payer MEDICARE, OTHER, SELFPAY | PROVIDERS: PCP Family Medicine; Visit Provider Internal Medicine Cardiovascular Disease | DX: I48.91 Unspecified atrial fibrillation (principal); I10 Essential (primary) hypertension; R04.2 Hemoptysis; I25.10 Atherosclerotic heart disease of native coronary artery without angina pectoris; Z79.01 Long term (current) use of anticoagulants; R91.1 Solitary pulmonary nodule; Z87.891 Personal history of nicotine dependence | CPT/HCPCS: 99214 ==

== ENCOUNTER → 2024-06-24 11:01 | Outpatient (BNVA) | payer MEDICARE, OTHER, SELFPAY | PROVIDERS: PCP Family Medicine; Visit Provider Nurse Practitioner Family | DX: I48.91 Unspecified atrial fibrillation (principal); I10 Essential (primary) hypertension; R04.2 Hemoptysis; I25.10 Atherosclerotic heart disease of native coronary artery without angina pectoris; Z87.891 Personal history of nicotine dependence | CPT/HCPCS: 99213 ==

== ENCOUNTER 2024-07-14 08:09 | Outpatient (CLI) | payer MEDICARE, OTHER, SELFPAY ==
[2024-07-14 09:13] LABS: Basophils % 0.7 %; Eosinophils # 0.3 10^3/uL (0.0-0.8); Eosinophils % 4.4 %; Hematocrit 32.5 % (37-53); Lymphocytes # 1.4 10^3/uL (0.8-4.8); Lymphocytes % 25.2 %; Mean Corpuscular HGB Conc 30.5 g/dL (30-55); Mean Corpuscular Hemoglobin 28.5 pg (27-33); Mean Corpuscular Volume 93.7 fl (82-101); Mean Platelet Volume 9.3 fL (7.4-10.4); Monocytes # 0.5 10^3/uL (0.2-0.9); Monocytes % 9.2 %; Neutrophils # 3.39 10^3/uL (1.8-7.7); Neutrophils % 60.1 %; Nucleated Red Blood Cells % 0 %; Platelet Count 285 10^3/cmm (157-399); Red Blood Count 3.47 10^6/uL (3.85-5.65); Red Cell Distribution Width 17.4 % (12.1-15.1); White Blood Count 5.64 10^3/uL (3.29-11.43)
[2024-07-14 09:31] LABS: Alanine Aminotransferase 13 U/L (0-41); Albumin Level 3.8 g/dL (3.5-5.2); Alkaline Phosphatase 57 U/L (40-130); Aspartate Amino Transferase 16 U/L (0-40); Erythrocyte Sedimentation Rate 45 mm/hr (0-10); Globulin 2.8 g/dL (1.3-4.6); Total Bilirubin 0.2 mg/dL (0.15-1.2); Total Protein 6.6 g/dL (6.6-8.7)
== END 2024-07-14 08:10 | disposition home or self-care (01) ==
LOC: LAB 08:11
PROVIDERS: PCP Family Medicine; Visit Provider Internal Medicine Rheumatology
DX: L40.50 Arthropathic psoriasis, unspecified (principal); Z79.899 Other long term (current) drug therapy
CPT/HCPCS: 36415; 80076; 82565; 85025; 85651; 86140

== ENCOUNTER 2024-08-20 14:45 | Outpatient (CLI) | payer MEDICARE, OTHER, SELFPAY ==
--- NOTE | 2024-08-20 14:50 | CTR_ITS ---
PROCEDURE INFORMATION: Exam: CT Chest With Contrast; Diagnostic Exam date and time: 08/20/2024 2:58 PM Age: 63 years old Clinical indication: Abnormal findings; Abnormal radiologic exam of lung or chest; Additional info: Abnormal findings of CT chest TECHNIQUE: Imaging protocol: Diagnostic computed tomography of the chest with contrast. Radiation optimization: All CT scans at this facility use at least one of these dose optimization techniques: automated exposure control; mA and/or kV adjustment per patient size (includes targeted exams where dose is matched to clinical indication); or iterative reconstruction. Contrast material: OMNI 350; Contrast volume: 100 ml; Contrast route: INTRAVENOUS (IV); COMPARISON: CT chest w con* [id number] 05/22/2024 8:24 AM RADIATION DOSE METRICS: Total DLP (mGy-cm): 411.38 FINDINGS: Lungs: There is linear scarring involving the lingula and right middle lobe. Very faint nodular infiltrate involves the right upper lobe on today's exam. Pleural spaces: Unremarkable. No pneumothorax. No pleural effusion. Heart: Unremarkable. No cardiomegaly. No pericardial effusion. Heart RV/LV ratio: The RV/LV ratio is 0.6. Lymph nodes: Unremarkable. No enlarged lymph nodes. Vasculature: There is a small nonocclusive pulmonary embolus involving a segmental branch of the right lower lobe. No other pulmonary embolus is noted. Bones/joints: Unremarkable. No acute fracture. Soft tissues: Unremarkable. CT/CT chest w con* [id number] IMPRESSION: 1. Small nonocclusive segmental pulmonary embolus of the right lower lobe. No right heart strain noted. 2. Previous consolidation involving the lingula and right middle lobe has resolved. Mild linear scarring persists. 3. New faint nodular interstitial infiltrate in the right upper lobe could represent early new pneumonia
[2024-08-20] MEDS: iohexol 350 mg/mL 500 mL Btl (per mL) IV (15:04)
== END 2024-08-20 14:46 | disposition home or self-care (01) ==
LOC: RAD 14:47
PROVIDERS: PCP Family Medicine; Visit Provider Family Medicine
DX: I26.99 Other pulmonary embolism without acute cor pulmonale (principal)
CPT/HCPCS: 71260

== ENCOUNTER → 2024-08-27 10:25 | Outpatient (BNVA) | payer MEDICARE, OTHER, SELFPAY | PROVIDERS: PCP Internal Medicine; Visit Provider Internal Medicine Rheumatology | DX: L40.50 Arthropathic psoriasis, unspecified (principal); Z79.899 Other long term (current) drug therapy; Z71.85 Encounter for immunization safety counseling | CPT/HCPCS: 99214 ==

== ENCOUNTER → 2024-10-09 15:20 | Outpatient (BNVA) | payer MEDICARE, OTHER, SELFPAY | PROVIDERS: PCP Internal Medicine; Visit Provider Internal Medicine Cardiovascular Disease | DX: I48.91 Unspecified atrial fibrillation (principal); I10 Essential (primary) hypertension; Z87.898 Personal history of other specified conditions; Z87.891 Personal history of nicotine dependence | CPT/HCPCS: 99214 ==

== ENCOUNTER → 2025-01-14 14:19 | Outpatient (BNVA) | payer MEDICARE, OTHER, SELFPAY | PROVIDERS: PCP Internal Medicine; Visit Provider Internal Medicine Rheumatology | DX: L40.59 Other psoriatic arthropathy (principal); Z79.899 Other long term (current) drug therapy; Z71.85 Encounter for immunization safety counseling; K21.9 Gastro-esophageal reflux disease without esophagitis | CPT/HCPCS: 36415; 80076; 82565; 85025; 85651; 86140; 99214 ==